=== PATIENT | male | born 1980 | race Caucasian/White ===

== ENCOUNTER 2023-04-13 08:58 | Outpatient (AMB) | payer OTHER, SELFPAY ==
--- NOTE | 2023-04-13 09:02 | A.OFFPC_ITS ---
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 Nurse Required: No Accompanied by: Self / Same As Patient Allergies penicillin G Allergy (Mild, Verified 04/13/23 09:15) Rash Medication List - Last Reconciled 04/13/23 by BALDEMAR Cho omeprazole 80 mg PO DAILY Tobacco use date assessed: 04/13/23 Dental Screening Dental Screen Date: 04/13/23 Did you have a dental visit in the last 12 months?: Yes Did you have a dental problem in the last 6 months where you did not have access to dental care?: No Was dental information given to patient?: Patient has dentist HPI HPI Comments History of Present Illness Details 42-year-old male new patient presents today for physical exam. Past medical history significant for eosinophilic esophagitis and hypercholesteremia. Patient states previously followed by gastroenterology recommended that he get EGDs every year, however patient reports has not had a upper endoscopy since 2019 and that he is overdue. Patient also reports he ran out of his 80 mg omeprazole over a month ago. Refill sent on 80 mg omeprazole daily an urgent referral placed to GI. Patient also reports family history of heart problems suggestive status or heart attack and mom had triple bypass. Patient reports has had a stress test completed in 2019 and reported it was normal. Patient denies any acute concerns. Eye exam: Patient recommended to get every couple years. Previous PCP: [facility] Medical History (Updated 04/13/23 @ 09:19 by BALDEMAR Cho) Malaria Surgical History (Updated 04/13/23 @ 09:19 by BALDEMAR Cho) H/O colonoscopy H/O endoscopy Hx of tonsillectomy No pertinent past surgical history Family History (Updated 04/13/23 @ 09:20 by BALDEMAR Cho) Father Heart attack High blood pressure Mother S/P triple vessel bypass Diabetes Brother Eosinophilic esophagitis Social History (Updated 04/13/23 @ 09:09 by Samuel Chavez CMA) Housing: House Alcohol intake: current Alcohol intake frequency: a few times a week Alcohol type: beer Patient Tobacco Use Status: Never used Tobacco e-Cigarette/Vaping Use: Never Used service: Yes Current occupational status: employed Current occupation: [employer] Current occupational exposures/hazards: No Cognitive needs: No Hearing needs: No Vision needs: No Questionnaire PHQ-9 Over the last 2 weeks, how often have you been bothered by any of the following problems? 1. Little interest or pleasure in doing things: not at all 2. Feeling down, depressed, or hopeless: not at all 3. Trouble falling or staying asleep, or sleeping too much: not at all 4. Feeling tired or having little energy: not at all 5. Poor appetite or overeating: not at all 6. Feeling bad about yourself - or that you are a failure or have let yourself or your family down: not at all 7. Trouble concentrating on things, such as reading the newspaper or watching television: not at all 8. Moving or speaking so slowly that other people could have noticed. Or the opposite - being so fidgety or restless that you have been moving around a lot more than usual: not at all 9. Thoughts that you would be better off or of hurting yourself in some way: not at all Total score: 0 Depression Screening Interpretation: Negative 68919 - PHQ-9 Billing: Yes Source: Developed by Drs. Yair Joshi, Ada Bartlett, Fernie Arroyo and colleagues, with an educational khadar from [employer]. Thrive Questionnaire Date Thrive assessed: 04/13/23 I am a: Patient What is your living situation today?: I have a steady place to live Within the past 12 months, did the food you bought not last and you didn't have the money to get more?: Never true Within the past 12 months, did you worry whether your food would run out before you got money to buy more?: Never true Do you have trouble paying for medicines?: No Do you have trouble getting transportation to medical appointments?: No Do you have trouble paying your heating and electricity bill?: No Do you have trouble taking care of your child, family member or friend?: No Do you have trouble with day-to-day activities such as bathing, preparing meals, shopping, managing finances, etc.?: No Are you currently unemployed and looking for a job?: No Please select the resources that you would like help with: None Currently or been in a relationship where the following occur: no concerns reported NATY-7 AMB Questionnaire NATY-7 Date NATY - 7 assessed: 04/13/23 Feeling nervous, anxious, or on edge: 0 = Not at all Not being able to stop or control worryin = Not at all Worrying too much about different things: 0 = Not at all Trouble relaxin = Not at all Being so restless that it is hard to sit still: 0 = Not at all Becoming easily annoyed or irritable: 0 = Not at all Feeling afraid as if something awful might happen: 0 = Not at all Total NATY-7 score (0-4 normal; 5-9 mild; 10-14 moderate; 15-21 severe): 0 Source: Developed by Drs. Yair Joshi, Ada Bartlett, Fernie Arroyo and colleagues, with an educational khadar from [employer]. NATY-7 Assessment Billing NATY-7 Assessment Tool: NAYT-7 Assessment 22081 Review of Systems Const Denies chills, Denies fatigue, Denies fever(s) and Denies poor appetite Eyes Denies no additional complaints ENT Reports Normal hearing present Card Denies chest pain, Denies syncope, Denies rapid heart rate and Denies dyspnea Resp Denies cough and Denies dyspnea GI Denies change in stool character, Denies constipation, Denies diarrhea, Denies nausea and Denies vomiting Denies dysuria, Denies urinary frequency and Denies urinary urgency Neuro Reports Normal hearing present, Denies confusion and Denies syncope Psych Denies confusion Endo Denies fatigue Physical exam (Primary Care) Vital Signs: Last Vital Signs Pulse 64 04/13/23 09:03 BP 122/72 04/13/23 09:03 Pulse Ox 98 04/13/23 09:03 BMI result Body Mass Index 34.2 Tobacco/Smoking Status: Tobacco use Status Tobacco use date assessed 04/13/23 04/13/23 09:11 Patient Tobacco Use Status Never used Tobacco 04/13/23 09:11 e-Cigarette/Vaping Use Never Used 04/13/23 09:11 PHQ-9: PHQ-9 Score PHQ-9: Total score 0 04/13/23 09:16 Depression Screening Interpretation: Negative Thrive Assessment: Date of Thrive Assessment Date Thrive assessed 04/13/23 04/13/23 09:11 Currently or been in a relationship where the following occur: no concerns reported Const General: No confusion Orientation/consciousness: No confusion HENMT Head: Yes normocephalic and Yes atraumatic Ears: external ears normal and TM's normal bilaterally General nose exam: Normal external nose present and Normal nasal mucous membranes and turbinates present Face and sinus: Yes normal facial exam and Yes sinuses nontender Mouth: moist mucous membranes Throat: Yes tonsils normal Eyes Conjunctivae: conjunctivae normal Sclerae: sclerae normal Pupils: Equal, round and reactive pupils present and Pupils normal by confrontation EOM: EOMs intact bilaterally Direct Ophthalmoscopy: normal light reflex Neck Neck: Yes no lymphadenopathy and Yes supple Thyroid: Thyroid normal Chest Chest palpation & inspection: normal inspection of the chest Resp Effort & Inspection: normal respiratory effort Auscultation: clear to auscultation bilaterally, no crackles, no rhonchi and no wheezes Cardio Rate: regular rate Rhythm: regular rhythm Peripheral pulses: radial pulses present and dorsalis pedis present GI Inspection: Yes normal to inspection Palpation (GI): Soft to palpation, nontender and No hepatosplenomegaly present Auscultation: normoactive bowel sounds Skin General skin exam: no rashes or lesions noted Neuro General: No confusion Cranial nerves: Yes Equal, round and reactive pupils present and Yes Normal hearing present Cognition (Neuro): normal cognition Gait exam (Neuro): Normal gait present Motor exam (neuro): 5/5 motor strength present throughout Deep tendon reflexes (DTR's): Right brachioradialis reflex intensity grade: 2+, Left brachioradialis reflex intensity grade: 2+, Right patellar reflex intensity grade: 2+ and Left patellar reflex intensity grade: 2+ Extrem General: No edema Assessment and Plan Assessment & Plan (1) Eosinophilic esophagitis: Code(s): K20.0 - Eosinophilic esophagitis Plan: Urgent referral placed to gastroenterology. Omeprazole 80 mg daily sent to patient's pharmacy. (2) Hypercholesteremia: Code(s): E78.00 - Pure hypercholesterolemia, unspecified Plan: Fasting lipid panel ordered. Patient reports previously on cholesterol med however has not been on an years and cannot remember what he was taking. (3) Physical exam, annual: Code(s): Z00.00 - Encounter for general adult medical examination without abnormal findings Plan Follow up in 6 monhts. Orders: Orders Comprehensive [place]. Panel Fast Today K20.0 - Eosinophilic esophagitis Lipid Panel Today E78.00 - Pure hypercholesterolemia, unspecified TSH reflex Free T4 Today Z13.29 - Encounter for screening for other suspected endocrine disorder Complete Blood Count Auto Diff Today Z13.0 - Encounter for screening for diseases of the blood and blood-forming organs and certain disorders involving the immune mechanism HIV Ab/Ag Today Z11.4 - Encounter for screening for human immunodeficiency virus [HIV] Referrals Dermatology Referral Z12.83 - Encounter for screening for malignant neoplasm of skin Gastroenterology Referral K20.0 - Eosinophilic esophagitis Medications: New omeprazole 80 mg (2 x 40 mg) PO DAILY 60 caps 2RF K20.0 - Eosinophilic esophagitis Coding Level of Care Code New Pt Prev Care 40-64y(20248) Diagnoses Eosinophilic esophagitis K20.0 Hypercholesteremia E78.00 Physical exam, annual Z00.00 Additional Codes NATY-7 Assessment Billing - NATY-7 Assessment Tool: NATY-7 Assessment [id number] ([id number])
[2023-04-13 09:03] VITALS: BP 122/72; PULSE 64; O2SAT 98; BMI 34.2
== END 2023-04-13 09:32 | disposition home or self-care (01) ==
PROVIDERS: Visit Provider Nurse Practitioner Family
DX: K20.0 Eosinophilic esophagitis (principal); E78.00 Pure hypercholesterolemia, unspecified; Z00.00 Encounter for general adult medical examination without abnormal findings
CPT/HCPCS: 99386

== ENCOUNTER 2023-04-13 09:34 | Outpatient (REF) | payer OTHER, SELFPAY ==
[2023-04-13 09:52] LABS: MANUAL DIFF FLAG NO
[2023-04-13 10:07] LABS: Basophils Absolute Auto 0.1 X10*3/uL (0.0-0.2); Basophils Percent Auto 1.1 % (0-2); Eosinophils Absolute Auto 0.5 X10*3/uL (0.0-0.4); Eosinophils Percent Auto 7.7 % (0-4); Hemoglobin 15.2 g/dl (14.0-18.0); Imm Gran Abs Auto 0.01 X10*3/uL (0.00-0.03); Imm Gran Pct Auto 0.2 % (0.0-0.4); Lymphocytes Absolute Auto 2.4 X10*3/uL (1.2-4.9); Lymphocytes Percent Auto 39.8 % (20-40); Mean Corpuscular HGB Conc 33.8 g/dl (31.0-36.0); Mean Corpuscular Hemoglobin 29.3 pg (27.0-33.0); Mean Corpuscular Volume 86.9 fL (80.0-98.0); Mean Platelet Volume 11.1 fL (9.4-12.4); Monocytes Absolute Auto 0.4 X10*3/uL (0.1-1.2); Monocytes Percent Auto 6.5 % (2-11); Neutrophils Absolute Auto 2.7 x10*3/uL (2.0-8.3); Neutrophils Percent Auto 44.7 % (45-73); Platelet Count 156 X10*3/uL (160-400); Red Blood Count 5.18 X10*6/uL (4.60-5.80); Red Cell Distribution Width 12.4 % (11.0-16.0); White Blood Count 6.1 X10*3/uL (4.8-10.8)
[2023-04-13 11:26] LABS: Alanine Aminotransferase 48 U/L (0-40); Albumin Level 4.5 g/dL (3.5-5.0); Alkaline Phosphatase 49 U/L (39-117); Anion Gap 10 (12-20); Aspartate Amino Transferase 27 U/L (5-37); Blood Urea Nitrogen 14 mg/dL (9-16); Calcium 9.7 mg/dL (8.4-10.2); Carbon Dioxide 27 mmol/L (22-29); Chloride 106 mmol/L (96-108); Cholesterol 236 mg/dL; Estimated Glomerular Filt Rate > 60; Glucose Fasting 93 mg/dL (60-99); HDL Cholesterol 46 mg/dL; LDL Cholesterol Calculated 161 mg/dl; Potassium 4.2 mmol/L (3.3-5.1); Sodium 139 mmol/L (135-145); Total Protein 7.5 g/dL (6.5-8.0); Triglycerides 148 mg/dL
[2023-04-13 11:36] LABS: HIV AB/AG Nonreactive (Nonreactive); HIV Num 1 0.05 S/CO (0.00-0.99)
[2023-04-13 11:47] LABS: Bilirubin Total 0.7 mg/dL (0.0-1.0)
== END 2023-04-13 09:35 | disposition home or self-care (01) ==
LOC: HO.LAB 09:34
PROVIDERS: PCP Nurse Practitioner Family; Visit Provider Nurse Practitioner Family
DX: Z13.29 Encounter for screening for other suspected endocrine disorder (principal); Z11.4 Encounter for screening for human immunodeficiency virus [HIV]; Z13.0 Encounter for screening for diseases of the blood and blood-forming organs and certain disorders involving the immune mechanism; K20.0 Eosinophilic esophagitis; E78.00 Pure hypercholesterolemia, unspecified
CPT/HCPCS: 36415; 80053; 80061; 84443; 85025; 87389

== ENCOUNTER 2023-04-27 09:13 | Outpatient (AMB) | payer OTHER, SELFPAY ==
--- NOTE | 2023-04-27 09:18 | MHC.OFFVIS ---
Intake Vital Signs 04/27/23 09:19 Height 6 ft Weight 253 lb 8.505 oz BMI 34.4 BP 137/94 H Blood Pressure Location Lt brachial Position Sitting Pulse 75 Intake Visit Reasons: Eosinophilic esophagitis Intake Note: Chacorta presents in the office as a new patient for eosinophilic esophigitis CC: He states that he is supposed to be scoped every 6 months to a year. He has scarring and he still has times when he has bits of choking. He states it gets so severe he has to go to the hospital to have it removed. He can tell when it is that severe. Once in a while he will have acid pains. 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 Works for the [employer] so relocates frequently. Was initially diagnosed in 2007 in [place] however has had symptoms most of his life. Brother also has EoE. Most recent care was in [place] where he had last EGD in 2020. Has needed dilation x3. Has had at least 4-5 visits to the ER for food obstruction most recently in 2021 in [facility]. Currently on omeprazole 40 BID. At one point was taking fluticasone inh for topical treatment but was stopped. Has also tried elimination diet based on skin allergy testing however does not think it helps. Does not think was ever on dedicated 6FED. Current symptoms are difficulty swallowing 1-2 times a week aby with meat or pasta. Cuts it up into very small and chews thoroughly. Last colo 2016 - hemorrhoids. PFSH Medical History Malaria Surgical History H/O colonoscopy H/O endoscopy Hx of tonsillectomy No pertinent past surgical history Family History Father Heart attack High blood pressure Mother S/P triple vessel bypass Diabetes Brother Eosinophilic esophagitis Social History Housing: House Alcohol intake: current Alcohol intake frequency: a few times a week Alcohol type: beer Patient Tobacco Use Status: Never used Tobacco e-Cigarette/Vaping Use: Never Used service: Yes Current occupational status: employed Current occupation: [employer] Current occupational exposures/hazards: No Cognitive needs: No Hearing needs: No Vision needs: No Review of Systems Const All systems reviewed & are unremarkable except as noted in HPI and below Physical Exam Vital Signs: Last Vital Signs Pulse 75 04/27/23 09:19 BP 137/94 H 04/27/23 09:19 BMI result Body Mass Index 34.4 Gen appear: NAD HEENT: nonicteric, no cervical lymphadenopathy Chest: CTA CVS: Regular S1/S2 Abd: soft, nontender, nondistended, bowel sounds + Ext: no peripheral edema Neuro: A/Ox3, noted to move all extremities spontaneously Psych: interacting appropriately Assessment & Plan Assessment & Plan (1) Eosinophilic esophagitis: Code(s): K20.0 - Eosinophilic esophagitis Plan: Reviewed natural evolution and progression of EoE and 3 pronged management with diet, meds and endoscopic dilation. Plan: - Start budesonide 1mg BID to be made into viscous slurry and swallowed - Barium swallow to assess for stricture to inform decision for EGD - Handouts provided for elimination diet - EGD +/- dil to be booked after barium swallow Follow up in 8 weeks. Orders: Orders FL barium swallow Today K20.0 - Eosinophilic esophagitis Medications: New budesonide 1 mg (2 mL) inhalation BID 90 days 360 mL 0RF budesonide 1 mg to be mixed in splenda or honey and swallowed 2 times a day; 90 days 360 mL 0RF Coding Level of Care Code New Pt Level 4 (93670) Diagnoses Eosinophilic esophagitis K20.0
[2023-04-27 09:19] VITALS: BP 137/94; PULSE 75; BMI 34.4
== END 2023-04-27 10:44 | disposition home or self-care (01) ==
PROVIDERS: PCP Nurse Practitioner Family; Visit Provider Internal Medicine
DX: K20.0 Eosinophilic esophagitis (principal)
CPT/HCPCS: 99204

== ENCOUNTER → 2023-04-27 09:13 | Outpatient (BNVA) | payer OTHER, SELFPAY | PROVIDERS: PCP Nurse Practitioner Family; Visit Provider Internal Medicine | DX: K20.0 Eosinophilic esophagitis (principal) | CPT/HCPCS: 99202 ==

== ENCOUNTER 2023-07-08 10:46 | Day surgery (SDC) | payer OTHER, SELFPAY ==
[2023-07-06 09:28] VITALS: BMI 34.4
--- NOTE | 2023-07-07 10:57 | P.CONAN_ITS ---
Documented by User: Shandra Flynn NP 07/07/23 10:58 HPI - Anesthesia Eval Consult details Narrative: 42yo M for Upper Endoscopy with Balloon Dilitation PMFSH Active Problems Active Problems: All Active Problems (Updated 07/06/23 @ 09:21 by Dior Ingram RN) Hypercholesteremia (Acute) Eosinophilic esophagitis (Acute) Past Medical History Medical History (Updated 07/06/23 @ 09:21 by Dior Ingram RN) Eosinophilic esophagitis Elevated cholesterol Malaria Family History Family History Father Heart attack High blood pressure Mother S/P triple vessel bypass Diabetes Brother Eosinophilic esophagitis Surgical History Surgical History (Updated 07/06/23 @ 09:27 by Dior Ingram RN) H/O colonoscopy Hx of tonsillectomy H/O endoscopy Social History Social History Housing: House Alcohol intake: current Alcohol intake frequency: a few times a week Alcohol type: beer Patient Tobacco Use Status: Never used Tobacco e-Cigarette/Vaping Use: Never Used Advance Directives: No Advance Directives Information Provided: Yes service: Yes Current occupational status: employed 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) Current occupational exposures/hazards: No Cognitive needs: No Hearing needs: No Vision needs: No Meds Allergies Allergy/AdvReac Type Severity Reaction Status Date / Time penicillin G Allergy Mild Rash Verified 04/27/23 09:20 Exam Exam Date and Time: July 07, 2023 1057 Height,Weight and Vital Signs: Height 6 ft Weight 115.212 kg Pertinent Lab Results Pertinent Lab Results: Laboratory Tests 04/13/23 09:50 WBC 6.1 Hgb 15.2 Hct 45.0 Plt Count 156 L Sodium 139 Potassium 4.2 Chloride 106 Carbon Dioxide 27 BUN 14 Creatinine 0.88 Assessment and Plan Assessment Anesthesia Assessment: Chart Reviewed Documented by User: Misael Beavers MD 07/08/23 12:25 PMFSH Past Medical History Medical History (Updated 07/06/23 @ 09:21 by Dior Ingram RN) Eosinophilic esophagitis Elevated cholesterol Malaria Family History Family History Father Heart attack High blood pressure Mother S/P triple vessel bypass Diabetes Brother Eosinophilic esophagitis Family history of problems with anesthesia: No Surgical History Surgical History (Updated 07/06/23 @ 09:27 by Dior Ingram RN) H/O colonoscopy Hx of tonsillectomy H/O endoscopy History of Problems with Anesthesia: No Social History Social History Housing: House Alcohol intake: current Alcohol intake frequency: a few times a week Alcohol type: beer Patient Tobacco Use Status: Never used Tobacco e-Cigarette/Vaping Use: Never Used Advance Directives: No Advance Directives Information Provided: Yes service: Yes Current occupational status: employed 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) Current occupational exposures/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: No Cognitive needs: No Hearing needs: No Vision needs: No Meds Allergies Allergy/AdvReac Type Severity Reaction Status Date / Time penicillin G Allergy Mild Rash Verified 04/27/23 09:20 Exam Airway Mallampati Class: II TM Dist: >3cm Neck ROM: Full Loose/Missing/Broken Teeth: No Heart: ok Lungs: ok Assessment and Plan Assessment Anesthesia Assessment: Anesthesia Plan Discussed Final Anesthetic Review Family History of Problems with Anesthesia: No History of Problems with Anesthesia: No NPO: Yes ASA Class: II Final Preanesthetic Review: No Changes in Pt Med Stat, Meds/Allgs Chart Reviewed, Consent Obtained/Reviewed and Anes Risks/Benef Reviewed Patient Risk: Intermediate Procedure Risk: Intermediate Anesthetic Plan Anesthetic Plan: MAC: and Agree w/ Assess. and Plan Disposition: Standard PACU
[2023-07-08 11:07] VITALS: BP 124/91; PULSE 63; RESP 16; TEMP 36.5; O2SAT 96
--- NOTE | 2023-07-08 12:10 | MHC.SHP ---
Pre-Procedural Eval Section A Date of Service: 07/08/23 Section B Chief Complaint: Eosinophilic esophagitis Details of Present Illness: PMH: Malaria Surgical History H/O colonoscopy H/O endoscopy Hx of tonsillectomy No pertinent past surgical history Present Medications: see Short Stay Collaborative assessment Allergies: Allergies Allergy/AdvReac Type Severity Reaction Status Date / Time penicillin G Allergy Mild Rash Verified 04/27/23 09:20 Review of Systems Review of Systems Comment: Ten point ROS negative Exam Exam Comment: Gen appear: No acute distress HEENT: no icterus Chest: No overt resp distress Abd: soft, nontender, nondistended Psych: Stable affect, answering questions appropriately Neuro: A/Ox3 noted to move all extremities spontaneously Ext: no peripheral edema Plan Diagnosis/Plan: Unchanged I have reviewed the history and physical and performed a pertinent physical examination on my patient. No changes have occurred unless specified. Time Spent With Patient Time: Total time managing care of this patient today ____ minutes.
[2023-07-08] MEDS: Lactated Ringers 1,000 ML 100 ML IVCONT (12:14)
--- NOTE | 2023-07-08 12:53 | P.OP_ITS ---
Operative Note Operative Note Date of Service: 07/08/23 Narrative: Procedure: Esophagogastroduodenoscopy Endoscopist: Lorraine Alamo MD Indication: EoE Anesthesia Provider: Dr Misael Beavers Anesthesia Type: MAC Instrument: Olympus [id number] ?? EGD Procedure:?? The procedure, indications, preparation and potential complications were reviewed with the patient, who indicated understanding and gave written informed consent to proceed. A physical exam was performed. The endoscope was introduced through the mouth, and advanced to the second part of duodenum. The mucosa was carefully examined on slow withdrawal of the endoscope. The patient tolerated the procedure well. There were no immediate complications.? ? EGD Findings:? * Esophagus:? Linear furrowing and trachealization of mid to lower esophagus noted. The Z line was at 37 cm. There was a small hiatal hernia with diaphragmatic pinch at 40 cm. Middle and lower esophagus forceps biopsies were obtained to monitor eosinophil count/response to current therapy. * Stomach:? Normal mucosa was noted in the stomach. Retroflexion was performed in the cardia. * Duodenum:? Normal mucosa was noted in the whole of the examined duodenum. Additional intervention: A wire guided [id number] balloon dilator was advanced to the lower esophagus and then incrementally insufflated from 15 to 18 mm. A superficial longitudinal tear was noted from 30-35 cm on relook confirming successful dilation. ? EGD Impressions:? * Abnormal esophageal mucosa compatible with known EoE (biopsy) * Lower esophageal stricture (dilation) * Normal stomach * Normal duodenum ?? Recommendations:?? * Follow biopsy results. Our office will call or send a letter with results within 7-10 days. * If has active histological disease i.e >15-20 eos/HPF, will need to increase the dose of budesonide to 1mg BID from current dose of 0.5 mg BID * Repeat EGD in 8 weeks for updilation of stricture +/- repeat biopsies Above has been reviewed with the patient.
[2023-07-08 13:03] VITALS: BP 108/58; PULSE 65; RESP 18; TEMP 36.4; O2SAT 93
[2023-07-08 13:18] VITALS: BP 105/70; PULSE 60; RESP 16; TEMP 36.5; O2SAT 95
[2023-07-08 13:32] VITALS: BP 108/68; PULSE 56; RESP 16; TEMP 36.5; O2SAT 95
== END 2023-07-08 13:55 | disposition home or self-care (01) ==
PROVIDERS: PCP Nurse Practitioner Family; Visit Provider Internal Medicine
PROC: (CPT 43239; principal; 2023-07-08 12:40)
DX: K20.0 Eosinophilic esophagitis (principal); K22.2 Esophageal obstruction; K44.9 Diaphragmatic hernia without obstruction or gangrene; K22.9 Disease of esophagus, unspecified; E78.00 Pure hypercholesterolemia, unspecified; Z79.899 Other long term (current) drug therapy
CPT/HCPCS: 43239; 43249; 88305; C1726

== ENCOUNTER → 2023-07-08 10:46 | Outpatient (BNV) | payer OTHER, SELFPAY | PROVIDERS: PCP Nurse Practitioner Family; Visit Provider Internal Medicine | DX: K20.0 Eosinophilic esophagitis (principal) | CPT/HCPCS: 43249 ==

== ENCOUNTER 2023-07-14 09:49 | Outpatient (REF) | payer OTHER, SELFPAY ==
--- NOTE | ~2023-07-14 | FL_ITS ---
EXAMINATION: FL BARIUM SWALLOW CLINICAL INFORMATION: Eosinophilic esophagitis COMPARISON: None TECHNIQUE: Fluoroscopic air contrast upper GI examination was performed utilizing standard techniques with thin and thick barium and effervescent granules. Numerous spot images were obtained. FINDINGS: Lateral cine images of the oropharynx and hypopharynx demonstrate normal swallow mechanism with normal epiglottic inversion and soft palate elevation. No tracheal penetration, glottic or subglottic aspiration identified. No nasopharyngeal reflux present. Hypopharyngeal structures appear normal without evidence of mass or diverticulum. There was no significant cricopharyngeal achalasia. Dual and single contrast images of the esophagus demonstrate a feline esophagus. No evidence of stricture, mass, or ulcerations identified. Primary esophageal peristalsis was normal. There are mild tertiary contractions following, which were nonpropulsive. A small type I hiatal hernia is present. Gastroesophageal reflux is seen up to level of the thoracic inlet. FLUOROSCOPY TIME: 2 minutes 41 seconds Number of Spot Images: 10 Number of Cine: 6 DOSE AREA PRODUCT: 1795 uGy-m2 (microgray-meter squared) FL/FL barium swallow IMPRESSION: 1. Feline esophagus, commonly associated with reflux. 2. Small type I hiatal hernia. 3. Significant gastroesophageal reflux. 4. Mild esophageal dysmotility. This procedure was performed by Juan Miguel Fields PA-C, and supervised by Dr. Tafoya
== END 2023-07-14 09:50 | disposition home or self-care (01) ==
LOC: HO.XRAY 09:49
PROVIDERS: PCP Nurse Practitioner Family; Visit Provider Internal Medicine
DX: K20.0 Eosinophilic esophagitis (principal)
CPT/HCPCS: 74220

== ENCOUNTER → 2023-07-14 09:50 | Outpatient (BNV) | payer OTHER, SELFPAY | PROVIDERS: PCP Nurse Practitioner Family; Visit Provider Radiology Diagnostic Radiology | DX: K20.0 Eosinophilic esophagitis (principal) | CPT/HCPCS: 74221 ==

== ENCOUNTER 2023-07-23 11:15 | Outpatient (AMB) | payer OTHER, SELFPAY ==
--- NOTE | 2023-07-23 11:19 | A.OFFVIS_ITS ---
Intake Vital Signs 07/23/23 11:20 Height 6 ft Weight 248 lb 3.848 oz BMI 33.7 BP 138/81 Blood Pressure Location Rt brachial Position Sitting Pulse 59 Intake Visit Reasons: s/p egd dil Intake Note: Chacorta presents in the office today in follow up of EGD with dilation. CC: Patient reports doing well since after EGD. He underwent EGD on 07/08/23. Denies having any new GI concerns today. Quill Machine Tender Required: No Allergies penicillin G Allergy (Mild, Verified 07/23/23 11:22) Rash HPI s/p egd dil HPI Details LAST VISIT WITH DR. ZEPEDA Assessment & Plan (1) Eosinophilic esophagitis: Code(s): K20.0 - Eosinophilic esophagitis Plan: Reviewed natural evolution and progression of EoE and 3 pronged management with diet, meds and endoscopic dilation. Plan: - Start budesonide 1mg BID to be made in to viscous slurry and swallowed - Barium swallow to assess for stricture to inform decision for EGD - Handouts provided for elimination diet - EGD +/- dil to be booked after barium swallow UPPER ENDOSCOPY EGD Findings:? * Esophagus:? Linear furrowing and trachealization of mid to lower esophagus noted. The Z line was at 37 cm. There was a small hiatal hernia with diaphragmatic pinch at 40 cm. Middle and lower esophagus forceps biopsies were obtained to monitor eosinophil count/response to current therapy. * Stomach:? Normal mucosa was noted in the stomach. Retroflexion was performed in the cardia. * Duodenum:? Normal mucosa was noted in the whole of the examined duodenum. Additional intervention: A wire guided caormaf-zww-kcotd balloon dilator was advanced to the lower esophagus and then incrementally insufflated from 15 to 18 mm. A superficial longitudinal tear was noted from 30-35 cm on relook confirming successful dilation. ? EGD Impressions:? * Abnormal esophageal mucosa compatible with known EoE (biopsy) * Lower esophageal stricture (dilation) * Normal stomach * Normal duodenum ?? Recommendations:?? * Follow biopsy results. Our office will call or send a letter with results within 7-10 days. * If has active histological disease i.e >15-20 eos/HPF, will need to increase the dose of budesonide to 1mg BID from current dose of 0.5 mg BID * Repeat EGD in 8 weeks for updilation of stricture +/- repeat biopsies PATHOLOGY RESULTS Diagnosis A. Esophagus, lower, biopsy: Squamous mucosa with numerous intraepithelial eosinophils (focally greater than 75 per high-power field), consistent with eosinophilic esophagitis; no columnar mucosa present. B. Esophagus, middle, biopsy: Squamous mucosa with numerous intraepithelial eosinophils (focally greater than 60 per high-power field), consistent with eosinophilic esophagitis; no columnar mucosa present TODAY'S VISIT Patient is here today for follow-up and to discuss upper endoscopy results. Patient is on budesonide 1 mg twice a day. He is tolerating the treatment well, however he continues to feel occasional dysphagia. Patient has previously seen shrimp peeling machine tender but it has been over 2 years ago. Allergies to multiple different food. Has not followed up with shrimp peeling machine tender yet. Patient reports that he has deviated septum and has not seen ENT provider. Patient also reports snoring at night. Has not been evaluated for sleep apnea. Reports postprandial drip frequently almost on a daily basis [facility] Medical History Eosinophilic esophagitis Elevated cholesterol Malaria Surgical History H/O colonoscopy Hx of tonsillectomy H/O endoscopy Family History Father Heart attack High blood pressure Mother S/P triple vessel bypass Diabetes Brother Eosinophilic esophagitis Social History Housing: House Alcohol intake: current Alcohol intake frequency: a few times a week Alcohol type: beer Patient Tobacco Use Status: Never used Tobacco e-Cigarette/Vaping Use: Never Used service: Yes Current occupational status: employed Current occupation: [employer] Current occupational exposures/hazards: No Cognitive needs: No Hearing needs: No Vision needs: No Review of Systems Const Denies weight gain and Denies weight loss ENT Reports no additional complaints, Reports dysphagia and Denies odynophagia Card Reports no additional complaints Resp Reports no additional complaints GI Denies abdominal pain, Denies belching, Denies melena, Denies bloating, Denies change in bowel habits, Reports dysphagia, Denies excessive flatus, Denies dyspepsia, Denies heartburn, Denies diarrhea, Denies loose stools, Denies nausea, Denies odynophagia and Denies vomiting Reports no additional complaints Musc Reports no additional complaints Neuro Reports no additional complaints Psych Reports no additional complaints Endo Reports no additional complaints Physical Exam Vital Signs: Last Vital Signs Pulse 59 07/23/23 11:20 BP 138/81 07/23/23 11:20 BMI result Body Mass Index 33.7 Const General: healthy appearing, no acute distress and well developed Nutritional Appearance: obese Orientation/consciousness: patient oriented x3 HEENT Head: Yes normal to inspection, Yes normocephalic and Yes atraumatic Face and sinus: Yes normal facial exam Mouth: Normal oral and palatal mucosa present Throat: Yes posterior oropharynx normal, Yes tonsils normal and Yes uvula midline Eyes General: appearance normal, both eyes and all related structures Neck Neck: Yes normal visual inspection, Yes full ROM and Yes trachea midline Thyroid: Thyroid normal Resp Effort & Inspection: normal respiratory effort, able to speak in complete sentences, no tracheal deviation and symmetric chest movement Auscultation: clear to auscultation bilaterally Cardio Rate: regular rate Heart sounds: S1 normal heart sound present and S2 normal heart sound present GI Inspection: Yes normal to inspection, No distended and Yes obesity Palpation (GI): Soft to palpation, not firm, nontender and No hepatosplenomegaly present Auscultation: normal bowel sounds General: Yes no CVA tenderness Back/Spine/Pelvis Back: no CVA tenderness Skin General skin exam: elasticity normal, turgor normal and dry skin Neuro General: patient oriented x3 Psych Appearance: grossly normal Mental Status: mental status grossly normal Assessment & Plan Assessment & Plan (1) Snoring: Code(s): R06.83 - Snoring (2) Dysphagia: Code(s): R13.10 - Dysphagia, unspecified Qualifiers: Dysphagia type: pharyngoesophageal phase Qualified Code(s): R13.14 - Dysphagia, pharyngoesophageal phase (3) Eosinophilic esophagitis: Code(s): K20.0 - Eosinophilic esophagitis Plan Referral to Sleep Medicine, allergy and immunology Center, ENT send for patient. Patient will return to this office in 2 months before going for upper endoscopy again. Patient can take Zyrtec for his allergies and he can take Flonase. He was encouraged to avoid dietary triggers. Patient has been on omeprazole for very long time will switch it to pantoprazole. Feels that omeprazole has not been working. He is agreeable to this plan and verbalizes understanding of instructions. He was given the opportunity to ask questions and all questions answered. Thank you for allowing me to participate in his care Orders: Referrals Sleep Medicine Referral R06.83 - Snoring, Z01.89 - Encounter for other specified special examinations Allergy & Immunology Referral K20.0 - Eosinophilic esophagitis Ear/Nose/Throat Referral J34.2 - Deviated nasal septum, R13.10 - Dysphagia, unspecified Medications: New fluticasone propionate 50 mcg/actuation (Flonase Allergy Relief) administer into each nostril twice a day for 2 weeks and daily 1 spray intranasal BID 90 days 16 grams 0RF R05.9 - Cough, unspecified pantoprazole 40 mg PO BID 60 tabs 4RF K21.9 - Gastro-esophageal reflux disease without esophagitis cetirizine (Zyrtec) 10 mg PO DAILY PRN 30 tabs 3RF allergy symptoms J31.0 - Chronic rhinitis fluticasone propionate 50 mcg/actuation (Flonase Allergy Relief) administer into each nostril twice a day for 2 weeks and daily 1 spray intranasal BID 16 grams 0RF R05.9 - Cough, unspecified Discontinued omeprazole Discontinued Reason: Doctor's Order 40 mg PO BID 60 caps 3RF K20.0 - Eosinophilic esophagitis Coding Level of Care Code Est Pt Level 4 (66624) Diagnoses Snoring R06.83 Pharyngoesophageal dysphagia R13.14 Dysphagia type: pharyngoesophageal phase Eosinophilic esophagitis K20.0 Time Spent (min) 40 Comment 25 minutes spent with patient and additional 15 minutes spent reviewing his records
[2023-07-23 11:20] VITALS: BP 138/81; PULSE 59; BMI 33.7
== END 2023-07-23 11:56 | disposition home or self-care (01) ==
PROVIDERS: PCP Nurse Practitioner Family; Visit Provider Nurse Practitioner Family
DX: R06.83 Snoring (principal); R13.14 Dysphagia, pharyngoesophageal phase; K20.0 Eosinophilic esophagitis
CPT/HCPCS: 99214

== ENCOUNTER → 2023-07-23 11:15 | Outpatient (BNVA) | payer OTHER, SELFPAY | PROVIDERS: PCP Nurse Practitioner Family; Visit Provider Nurse Practitioner Family | DX: K20.0 Eosinophilic esophagitis (principal); R06.83 Snoring; R13.14 Dysphagia, pharyngoesophageal phase | CPT/HCPCS: 99212 ==

== ENCOUNTER 2023-10-01 07:47 | Outpatient (AMB) | payer OTHER, SELFPAY ==
--- NOTE | 2023-10-01 07:55 | MHC.OFFVIS ---
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 Patient Biller Required: No Allergies penicillin G Allergy (Mild, Verified 10/01/23 07:56) Rash HPI HPI Comments History of Present Illness Details 43 y/o male patient presents for new in-person visit for sleep consultation. Pt reports loud snoring, he snores all night. He denies difficulty falling asleep but wakes up 1-2 times at night. Pt reports non refreshing sleep with daytime tiredness. He gained about 40 lb over the last couple of years. Sleep questionnaire: Have you ever been diagnosed with a sleep disorder? No. Have you ever had a sleep study in the past? No. Have you ever been treated for a sleep disorder? No. Do you take medications for a sleep disorder? No. Do you snore? Yes, loudly. Do you wake up gasping at night? No. Do you have episodes of apneas? No. If yes, are they witnessed? No. Do you have episodes of nocturnal chest pain or dyspnea? No. Do you have difficulty initiating sleep? No. Do you have difficulty maintaining sleep? 1-2 times at night. Do you wake up tired? Yes. Do you have headaches upon awakening? Yes, occasionally. Do you wake up with dry mouth or throat? No. Do you have GERD? Yes. Do you have nocturia? Once. Do you have nocturnal leg cramps? No. Do you have symptoms of restless legs? No. Do you act out your dreams? No. Sleep hygiene questionnaire: What is your usual sleep routine? Usual bedtime is at 10 :30 11:30 pm; Usual wake up time is at 6:30 am. Do you take naps? No. Is your sleep environment cool, dark, and quiet? Yes. Do you exercise? Once in a while. Do you take caffeine or other stimulants? One soda a day. Do you use electronics in bed? Yes. What is your work schedule? 7:30am to 5 pm. Hypersomnolence questionnaire: Do you have daytime tiredness or fatigue? Yes. Do you easily fall asleep when inactive? No. Have you ever had episodes of sudden weakness? No. Have you ever had episodes of sudden weakness associated with strong emotions? No. PFSH Medical History Eosinophilic esophagitis Elevated cholesterol Malaria Surgical History H/O colonoscopy Hx of tonsillectomy H/O endoscopy Family History Father Heart attack High blood pressure Mother S/P triple vessel bypass Diabetes Brother Eosinophilic esophagitis Social History Housing: House Alcohol intake: current Alcohol intake frequency: a few times a week Alcohol type: beer Patient Tobacco Use Status: Never used Tobacco e-Cigarette/Vaping Use: Never Used service: Yes Current occupational status: employed Current occupation: [employer] Current occupational exposures/hazards: No Cognitive needs: No Hearing needs: No Vision needs: No Review of Systems Const All systems reviewed & are unremarkable except as noted in HPI and below Physical Exam Vital Signs: Last Vital Signs Pulse 62 10/01/23 07:56 Resp 16 10/01/23 07:56 BP 118/82 10/01/23 07:56 Pulse Ox 95 10/01/23 07:56 Oxygen Delivery Method Room Air 10/01/23 07:56 BMI result Body Mass Index 34.7 Const General: cooperative Nutritional Appearance: obese Neck Neck: Yes full ROM and Yes supple Resp Effort & Inspection: normal respiratory effort and able to speak in complete sentences Neuro Cranial nerves: Yes CN's II-XII intact bilaterally Cognition (Neuro): normal cognition Gait exam (Neuro): Normal gait present Motor exam (neuro): 5/5 motor strength present throughout, Pronator motor function not present and no tremor noted Psych Appearance: grossly normal Mental Status: mental status grossly normal Speech and movement: Normal speech and movement present Affect: normal affect Attitude: cooperative Assessment & Plan Assessment & Plan (1) Loud snoring: Code(s): R06.83 - Snoring (2) Daytime sleepiness: Code(s): R40.0 - Somnolence Plan Pt is advised to undergo home sleep study to assess for sleep apnea. Will f/u with pt after study to discuss results and appropriate treatment options. Sleep hygiene education provided. Advised patient limit electronic use before bedtime. Wt reduction advised. Pt to call with any worsening concerns or questions. Orders: Orders RT home sleep study Today R06.83 - Snoring, R40.0 - Somnolence Coding Level of Care Code New Pt Level 3 (41592) Diagnoses Loud snoring R06.83 Daytime sleepiness R40.0
[2023-10-01 07:56] VITALS: BP 118/82; PULSE 62; RESP 16; O2SAT 95; BMI 34.7
== END 2023-10-01 08:30 | disposition home or self-care (01) ==
PROVIDERS: PCP Nurse Practitioner Family; Supervising Provider Nurse Practitioner Family; Visit Provider Nurse Practitioner Family
DX: R06.83 Snoring (principal); R40.0 Somnolence
CPT/HCPCS: 99203

== ENCOUNTER → 2023-10-01 07:47 | Outpatient (BNVA) | payer OTHER, SELFPAY | PROVIDERS: PCP Nurse Practitioner Family; Visit Provider Nurse Practitioner Family | DX: R06.83 Snoring (principal); R40.0 Somnolence | CPT/HCPCS: 99202 ==

== ENCOUNTER 2023-10-05 15:44 | Outpatient (AMB) | payer OTHER, SELFPAY ==
[2023-10-05 15:52] VITALS: BP 129/88; PULSE 60; BMI 35.0
--- NOTE | 2023-10-05 15:52 | MHC.OFFVIS ---
Intake Vital Signs 10/05/23 15:52 Height 6 ft Weight 257 lb 15.053 oz BMI 35.0 BP 129/88 Blood Pressure Location Lt brachial Position Sitting Pulse 60 Intake Visit Reasons: f/u Intake Note: Patient prsents to in office fvisit today in follow up of dysphagia. CC: Patient states he is scheduled for EGD with dilation on 10/28/23. Denies having any GI concerns or symptoms today. Paperhanger Supervisor Required: No Accompanied by: Self / Same As Patient Allergies penicillin G Allergy (Mild, Verified 10/05/23 15:54) Rash HPI f/u HPI Details LAST VISIT: Snoring Dysphagia Eosinophilic esophagitis Plan Referral to Sleep Medicine, allergy and immunology Center, ENT send for patient. Patient will return to this office in 2 months before going for upper endoscopy again. Patient can take Zyrtec for his allergies and he can take Flonase. He was encouraged to avoid dietary triggers. Patient has been on omeprazole for very long time will switch it to pantoprazole. Feels that omeprazole has not been working. He is agreeable to this plan and verbalizes understanding of instructions. He was given the opportunity to ask questions and all questions answered. ? Thank you for allowing me to participate in his care Orders Referrals Sleep Medicine Referral R06.83, Z01.89 Allergy & Immunology Referral K20.0 Ear/Nose/Throat Referral J34.2, R13.10 Medications New fluticasone propionate 50 mcg/actuation (Flonase Allergy Relief) administer into each nostril twice a day for 2 weeks and daily 1 spray intranasal BID 90 days 16 grams 0RF R05.9 pantoprazole 40 mg PO BID 60 tabs 4RF K21.9 cetirizine (Zyrtec) 10 mg PO DAILY PRN 30 tabs 3RF allergy symptoms J31.0 fluticasone propionate 50 mcg/actuation (Flonase Allergy Relief) administer into each nostril twice a day for 2 weeks and daily 1 spray intranasal BID 16 grams 0RF R05.9 Discontinued omeprazole Discontinued Reason: Doctor's Order 40 mg PO BID 60 caps 3RF K20.0 TODAY'S VISIT Patient is here today for follow-up. Patient reports that he has been feeling better started taking pantoprazole twice a day and his symptoms of acid reflux are suppressed. Patient is scheduled for October 28 for upper endoscopy with dilation. Patient would like to change the appointment to different time. Patient reports no dyspepsia, dysphagia or odynophagia. His symptoms are suppressed at this time. Patient will be going for sleep study, seen by provider and test ordered. Patient has an appointment with ENT in few weeks. Otherwise patient reports to be feeling well. Denies any other GI concerning symptoms. [facility] Medical History Eosinophilic esophagitis Elevated cholesterol Malaria Surgical History H/O colonoscopy Hx of tonsillectomy H/O endoscopy Family History Father Heart attack High blood pressure Mother S/P triple vessel bypass Diabetes Brother Eosinophilic esophagitis Social History Housing: House Alcohol intake: current Alcohol intake frequency: a few times a week Alcohol type: beer Patient Tobacco Use Status: Never used Tobacco e-Cigarette/Vaping Use: Never Used service: Yes Current occupational status: employed Current occupation: [employer] Current occupational exposures/hazards: No Cognitive needs: No Hearing needs: No Vision needs: No Review of Systems Const Denies weight gain and Denies weight loss ENT Reports no additional complaints, Denies dysphagia and Denies odynophagia Card Reports no additional complaints Resp Reports no additional complaints GI Denies abdominal pain, Denies belching, Denies melena, Denies bloating, Denies change in bowel habits, Denies dysphagia, Denies excessive flatus, Denies dyspepsia, Denies heartburn, Denies diarrhea, Denies loose stools, Denies nausea, Denies odynophagia and Denies vomiting Reports no additional complaints Musc Reports no additional complaints Neuro Reports no additional complaints Psych Reports no additional complaints Endo Reports no additional complaints Physical Exam Vital Signs: Last Vital Signs Pulse 60 10/05/23 15:52 BP 129/88 10/05/23 15:52 BMI result Body Mass Index 35.0 Const General: healthy appearing, no acute distress and well developed Nutritional Appearance: obese Orientation/consciousness: patient oriented x3 Resp Effort & Inspection: normal respiratory effort, able to speak in complete sentences, no tracheal deviation and symmetric chest movement Auscultation: clear to auscultation bilaterally Cardio Rate: regular rate GI Inspection: Yes normal to inspection, No distended and Yes obesity Palpation (GI): Soft to palpation, not firm, nontender and No hepatosplenomegaly present Auscultation: normal bowel sounds General: Yes no CVA tenderness Back/Spine/Pelvis Back: no CVA tenderness Skin General skin exam: elasticity normal, turgor normal and dry skin Neuro General: patient oriented x3 Psych Appearance: grossly normal Mental Status: mental status grossly normal Assessment & Plan Assessment & Plan (1) Eosinophilic esophagitis: Code(s): K20.0 - Eosinophilic esophagitis (2) Dysphagia: Code(s): R13.10 - Dysphagia, unspecified Qualifiers: Dysphagia type: esophageal phase Qualified Code(s): R13.19 - Other dysphagia (3) GERD (gastroesophageal reflux disease): Code(s): K21.9 - Gastro-esophageal reflux disease without esophagitis Qualifiers: Esophagitis presence: with esophagitis Esophagitis bleeding: without hemorrhage Qualified Code(s): K21.00 - Gastro-esophageal reflux disease with esophagitis, without bleeding Plan Patient will be scheduled for upper endoscopy. Continue new pantoprazole daily. Avoid dietary triggers in late night snacking. Patient so far has no dysphagia. However will need to go for upper endoscopy for possible esophageal dilation. History of eosinophilic esophagitis and treated with budesonide. Able to change his October 28 procedure to going for endoscopy this in early afternoon. Patient will follow-up in the office after the procedure, sooner on as needed basis. He is agreeable to this plan and verbalizes understanding of instructions. He was given the opportunity to ask questions and all questions answered. Thank you for allowing me to participate in his care Medications: Changed From pantoprazole 40 mg PO BID 60 tabs 4RF K21.9 - Gastro-esophageal reflux disease without esophagitis To pantoprazole 40 mg PO DAILY 30 tabs 4RF K21.9 - Gastro-esophageal reflux disease without esophagitis Coding Level of Care Code Est Pt Level 3 (85317) Diagnoses Eosinophilic esophagitis K20.0 Esophageal dysphagia R13.19 Dysphagia type: esophageal phase Gastroesophageal reflux disease with esophagitis without hemorrhage K21.00 Esophagitis presence: with esophagitis Esophagitis bleeding: without hemorrhage Time Spent (min) 30 Comment 20 minutes spent with patient and additional 10 minutes spent reviewing his records
== END 2023-10-05 16:22 | disposition home or self-care (01) ==
PROVIDERS: PCP Nurse Practitioner Family; Visit Provider Nurse Practitioner Family
DX: K21.00 Gastro-esophageal reflux disease with esophagitis, without bleeding (principal); R13.19 Other dysphagia
CPT/HCPCS: 99213

== ENCOUNTER → 2023-10-05 15:44 | Outpatient (BNVA) | payer OTHER, SELFPAY | PROVIDERS: PCP Nurse Practitioner Family; Visit Provider Nurse Practitioner Family | DX: R13.19 Other dysphagia (principal); K21.00 Gastro-esophageal reflux disease with esophagitis, without bleeding; Z79.899 Other long term (current) drug therapy | CPT/HCPCS: 99212 ==

== ENCOUNTER 2023-10-07 12:30 | Day surgery (SDC) | payer OTHER, SELFPAY ==
[2023-10-07 12:53] VITALS: BMI 34.7
[2023-10-07 13:11] VITALS: BP 130/95; PULSE 74; TEMP 35.8; O2SAT 96
--- NOTE | 2023-10-07 14:04 | MHC.SHP ---
Pre-Procedural Eval Section A - 24 Hr Update-Section A only Date of Service: 10/07/23 The patient is an INPATIENT: No Changes since office visit: Yes Patient answered all questions The patient has been examined within 24 hours of the surgical procedure. The History & Physical has been completed within 30 days and I have reviewed it.: Yes Section B - Complete if H&P > 30 days Chief Complaint: Eosinophilic esophagitis Allergies: Allergies Allergy/AdvReac Type Severity Reaction Status Date / Time penicillin G Allergy Mild Rash Verified 10/05/23 15:54 Plan Diagnosis/Plan: Unchanged I have reviewed the history and physical and performed a pertinent physical examination on my patient. No changes have occurred unless specified. Time Spent With Patient Time: Total time managing care of this patient today ____ minutes.
--- NOTE | 2023-10-07 14:46 | HO.ANESPROP2 ---
[facility] Active Problems Active Problems: All Active Problems (Updated 10/01/23 @ 08:50 by Valentina Skinner CNP) Daytime sleepiness (Acute) Loud snoring (Acute) Hypercholesteremia (Acute) Eosinophilic esophagitis (Acute) Past Medical History Medical History Eosinophilic esophagitis Elevated cholesterol Malaria Family History Family History Father Heart attack High blood pressure Mother S/P triple vessel bypass Diabetes Brother Eosinophilic esophagitis Family history of problems with anesthesia: No Surgical History Surgical History H/O colonoscopy Hx of tonsillectomy H/O endoscopy History of Problems with Anesthesia: No Social History Social History Housing: House Alcohol intake: current Alcohol intake frequency: holidays/special occasions only Alcohol type: beer Patient Tobacco Use Status: Never used Tobacco e-Cigarette/Vaping Use: Never Used Use of substances other than those prescribed or required for medical reasons: No Are you DNR?: No Advance Directives: No Advance Directives Information Provided: Yes service: Yes Current occupational status: employed Current occupation: [employer] Current occupational exposures/hazards: No Cognitive needs: No Hearing needs: No Vision needs: No Meds Allergies Allergy/AdvReac Type Severity Reaction Status Date / Time penicillin G Allergy Mild Rash Verified 10/05/23 15:54 Exam Height,Weight and Vital Signs: Height 6 ft Weight 116.12 kg Last Vital Signs Temp 96.5 F L 10/07/23 13:11 Pulse 74 10/07/23 13:11 BP 130/95 H 10/07/23 13:11 Pulse Ox 96 10/07/23 13:11 O2 Del Method Room Air 10/07/23 13:11 Airway Mallampati Class: II TM Dist: >3cm Neck ROM: Full Heart: rrr Lungs: cta Assessment and Plan Assessment Anesthesia Assessment: Anesthesia Plan Discussed and Chart Reviewed Final Anesthetic Review Family History of Problems with Anesthesia: No History of Problems with Anesthesia: No NPO: Yes ASA Class: II Final Preanesthetic Review: No Changes in Pt Med Stat, Meds/Allgs Chart Reviewed, Consent Obtained/Reviewed and Anes Risks/Benef Reviewed Patient Risk: Intermediate Procedure Risk: Low Anesthetic Plan Anesthetic Plan: MAC: Disposition: Standard PACU
[2023-10-07 15:45] VITALS: BP 126/84; PULSE 74; RESP 17; TEMP 36.6; O2SAT 98
--- NOTE | 2023-10-07 15:50 | P.OP_ITS ---
Operative Note Operative Note Date of Service: 10/07/23 Narrative: Procedure: Esophagogastroduodenoscopy with balloon dilation Endoscopist: Lorraine Alamo MD Indication: EoE with stricture Anesthesia Provider: Dr Kadie Bhatti Anesthesia Type: MAC Instrument: Olympus [id number]-[id number] ?? EGD Procedure:?? The procedure, indications, preparation and potential complications were reviewed with the patient, who indicated understanding and gave written informed consent to proceed. A physical exam was performed. The endoscope was introduced through the mouth, and advanced to the second part of duodenum. The mucosa was carefully examined on slow withdrawal of the endoscope. The patient tolerated the procedure well. There were no immediate complications.? ? EGD Findings:? * Esophagus:? Linear furrowing and trachealization of mid to lower esophagus noted. The Z line was at 37 cm. There was a small hiatal hernia with diaphragmatic pinch at 40 cm. Middle and lower esophagus forceps biopsies were obtained to monitor eosinophil count/response to current therapy. * Stomach:? Normal mucosa was noted in the stomach. Retroflexion was performed in the cardia. * Duodenum:? Normal mucosa was noted in the whole of the examined duodenum. Additional intervention: A wire guided [id number] balloon dilator was advanced to the lower esophagus and then incrementally insufflated from 15 to 18 mm. A superficial longitudinal tear was noted from 32-35 cm on relook confirming successful dilation. ? EGD Impressions:? * Abnormal esophageal mucosa compatible with known EoE (biopsy) * Lower esophageal stricture (dilation) * Normal stomach * Normal duodenum ?? Recommendations:?? * Follow biopsy results. Our office will call or send a letter with results within 7-10 days. * Patient reported being off budesonide for > 4 weeks as was not able to get further refills. Will recommend resuming this at 1 mg BID dosing. * Repeat EGD in 8 weeks for updilation of stricture +/- repeat biopsies Above has been reviewed with the patient.
[2023-10-07 16:00] VITALS: BP 124/80; PULSE 72; RESP 16; O2SAT 98
[2023-10-07 16:15] VITALS: BP 130/89; PULSE 79; RESP 14; TEMP 36.4; O2SAT 99
== END 2023-10-07 16:34 | disposition home or self-care (01) ==
PROVIDERS: PCP Nurse Practitioner Family; Visit Provider Internal Medicine
PROC: (CPT 43249; principal; 2023-10-07 14:40)
DX: K20.0 Eosinophilic esophagitis (principal); K22.2 Esophageal obstruction; K44.9 Diaphragmatic hernia without obstruction or gangrene; E78.00 Pure hypercholesterolemia, unspecified; Z79.899 Other long term (current) drug therapy
CPT/HCPCS: 43249; 43239; 88305; C1726; J2704

== ENCOUNTER → 2023-10-07 12:30 | Outpatient (BNV) | payer OTHER, SELFPAY | PROVIDERS: PCP Nurse Practitioner Family; Visit Provider Internal Medicine | DX: K20.0 Eosinophilic esophagitis (principal) | CPT/HCPCS: 43249 ==

== ENCOUNTER → 2023-11-24 14:53 | Outpatient (REF) | payer OTHER, SELFPAY | LOC: HO.SL 14:53 | PROVIDERS: Visit Provider Nurse Practitioner Family | DX: R06.83 Snoring (principal); R40.0 Somnolence | CPT/HCPCS: 95806 ==

== ENCOUNTER → 2023-11-24 15:02 | Outpatient (BNV) | payer OTHER, SELFPAY | PROVIDERS: Visit Provider Psychiatry & Neurology Neurology | DX: R06.83 Snoring (principal) | CPT/HCPCS: 95806 ==

== ENCOUNTER 2023-12-28 10:09 | Day surgery (SDC) | payer OTHER, SELFPAY ==
[2023-12-24 13:55] VITALS: BMI 35.0
--- NOTE | 2023-12-27 09:47 | P.CONAN_ITS ---
Documented by User: Shandra Flynn NP 12/27/23 09:47 HPI - Anesthesia Eval Consult details Narrative: 43yo M for Upper Endoscopy with dilation PMFSH Active Problems Active Problems: All Active Problems Daytime sleepiness (Acute) Loud snoring (Acute) Hypercholesteremia (Acute) Eosinophilic esophagitis (Acute) Past Medical History Medical History Eosinophilic esophagitis Elevated cholesterol Malaria Family History Family History Father Heart attack High blood pressure Mother S/P triple vessel bypass Diabetes Brother Eosinophilic esophagitis Family history of problems with anesthesia: No Surgical History Surgical History H/O colonoscopy Hx of tonsillectomy H/O endoscopy History of Problems with Anesthesia: No Social History Social History Housing: House Alcohol intake: current Alcohol intake frequency: holidays/special occasions only Alcohol type: beer Patient Tobacco Use Status: Never used Tobacco e-Cigarette/Vaping Use: Never Used Are you DNR?: No Advance Directives: No Advance Directives Information Provided: Yes Nutrition Risks: No Nutritional Risk service: Yes Current occupational status: employed Current occupation: [employer] Current occupational exposures/hazards: No Cognitive needs: No Hearing needs: No Vision needs: No Meds Allergies Allergy/AdvReac Type Severity Reaction Status Date / Time penicillin G Allergy Mild Rash Verified 12/28/23 10:19 Exam Height,Weight and Vital Signs: Height 6 ft Weight 117.027 kg Assessment and Plan Assessment Anesthesia Assessment: Chart Reviewed Final Anesthetic Review Family History of Problems with Anesthesia: No History of Problems with Anesthesia: No Documented by User: Aicha Brito MD 12/28/23 11:49 HPI - Anesthesia Eval Consult details Narrative: 43yo M for Upper Endoscopy with dilatation PMFSH Active Problems Active Problems: All Active Problems Daytime sleepiness (Acute) Loud snoring (Acute). Awaiting sleep study Hypercholesteremia (Acute) Eosinophilic esophagitis (Acute) Past Medical History Medical History Eosinophilic esophagitis Elevated cholesterol Malaria Family History Family History Father Heart attack High blood pressure Mother S/P triple vessel bypass Diabetes Brother Eosinophilic esophagitis Family history of problems with anesthesia: No Surgical History Surgical History H/O colonoscopy Hx of tonsillectomy H/O endoscopy History of Problems with Anesthesia: No Social History Social History Housing: House Alcohol intake: current Alcohol intake frequency: holidays/special occasions only Alcohol type: beer Patient Tobacco Use Status: Never used Tobacco e-Cigarette/Vaping Use: Never Used Are you DNR?: No Advance Directives: No Advance Directives Information Provided: Yes Nutrition Risks: No Nutritional Risk service: Yes Current occupational status: employed Current occupation: [employer] Current occupational exposures/hazards: No Cognitive needs: No Hearing needs: No Vision needs: No Meds Allergies Allergy/AdvReac Type Severity Reaction Status Date / Time penicillin G Allergy Mild Rash Verified 12/28/23 10:19 Exam Height,Weight and Vital Signs: Height 6 ft Weight 117.027 kg Vital Signs Temp Pulse Resp BP Pulse Ox O2 Del Method 12/28/23 10:38 97.9 F 61 18 131/87 96 Room Air Airway Mallampati Class: II TM Dist: >3cm Neck ROM: Full Loose/Missing/Broken Teeth: No (Denies broken, loose, missing teeth) Heart: RRR Lungs: CTAB Assessment and Plan Assessment Anesthesia Assessment: Anesthesia Plan Discussed and Chart Reviewed Final Anesthetic Review Family History of Problems with Anesthesia: No History of Problems with Anesthesia: No NPO: Yes ASA Class: II Final Preanesthetic Review: No Changes in Pt Med Stat, Meds/Allgs Chart Reviewed, Consent Obtained/Reviewed and Anes Risks/Benef Reviewed Patient Risk: Intermediate Procedure Risk: Low Assessment/Block/Sedation in SS: Assess/Block/Sedation-SS Anesthetic Plan Anesthetic Plan: MAC: and TIVA Disposition: Standard PACU
[2023-12-28 10:28] VITALS: BMI 34.6
[2023-12-28] MEDS: Lactated Ringers 1,000 ML 100 ML IVCONT (10:32)
[2023-12-28 10:38] VITALS: BP 131/87; PULSE 61; RESP 18; TEMP 36.6; O2SAT 96
--- NOTE | 2023-12-28 12:13 | MHC.SHP ---
Pre-Procedural Eval Section A - 24 Hr Update-Section A only Date of Service: 12/28/23 Section B - Complete if H&P > 30 days Chief Complaint: Eosinophilic esophagitis Relevant Family History (Specify if Yes): No Present Medications: see Short Stay Collaborative assessment Medical History: No relevant PMH History of Previous Operations: Relevant previous surgery/procedure and date(s) Allergies: Allergies Allergy/AdvReac Type Severity Reaction Status Date / Time penicillin G Allergy Mild Rash Verified 12/28/23 10:19 Review of Systems Review of Systems Comment: Ten point ROS negative Exam Exam Comment: Gen appear: No acute distress HEENT: no icterus Chest: No overt resp distress Abd: soft, nontender, nondistended Psych: Stable affect, answering questions appropriately Neuro: A/Ox3 noted to move all extremities spontaneously Ext: no peripheral edema Plan Diagnosis/Plan: Unchanged I have reviewed the history and physical and performed a pertinent physical examination on my patient. No changes have occurred unless specified. Time Spent With Patient Time: Total time managing care of this patient today ____ minutes.
--- NOTE | 2023-12-28 12:39 | P.OP_ITS ---
Operative Note Operative Note Date of Service: 12/28/23 Narrative: Procedure: Esophagogastroduodenoscopy with balloon dilation Endoscopist: Lorraine Alamo MD Indication: EoE with stricture Anesthesia Provider: Shayy Marshall CRNA Anesthesia Type: MAC Instrument: Olympus GIF-H190 ?? EGD Procedure:?? The procedure, indications, preparation and potential complications were reviewed with the patient, who indicated understanding and gave written informed consent to proceed. A physical exam was performed. The endoscope was introduced through the mouth, and advanced to the second part of duodenum. The mucosa was carefully examined on slow withdrawal of the endoscope. The patient tolerated the procedure well. There were no immediate complications.? ? EGD Findings:? * Esophagus:? Nomral mucosa was noted in proximal esophagus. Linear ulcerations were noted in the lower esophagus from 40 cm to 37 cm. The Z line was at 40 cm. There was a small hiatal hernia with diaphragmatic pinch at 42 cm. Middle and lower esophagus forceps biopsies were obtained to monitor eosinophil count/response to current therapy. * Stomach:? Normal mucosa was noted in the stomach. Retroflexion was performed in the cardia. * Duodenum:? Normal mucosa was noted in the whole of the examined duodenum. Additional intervention: A wire guided [id number]-[id number]-[id number] balloon dilator was advanced to the lower esophagus and then incrementally insufflated from 18 to 20 mm. A superficial longitudinal tear was noted from 30-34 cm on relook confirming successful dilation. ? EGD Impressions:? * Grade C esophagitis * Esophageal stricture (dilation) * Normal stomach * Normal duodenum ?? Recommendations:?? * Follow biopsy results. Our office will call or send a letter with results within 7-10 days. * Cont budesonide 1 mg BID and pantoprazole 40mg once daily * Repeat EGD in 3 months to document healing of esophagitis and dilation if needed Above has been reviewed with the patient.
[2023-12-28 12:47] VITALS: BP 117/86; PULSE 71; RESP 16; TEMP 36.4; O2SAT 97
[2023-12-28 13:02] VITALS: BP 114/81; PULSE 62; RESP 18; TEMP 36.2; O2SAT 97
== END 2023-12-28 13:39 | disposition home or self-care (01) ==
PROVIDERS: PCP Nurse Practitioner Family; Visit Provider Internal Medicine
PROC: 0DJ08ZZ Inspection of Upper Intestinal Tract, Via Natural or Artificial Opening Endoscopic (ICD-10-PCS; CPT 43235; principal; 2023-12-28 11:50)
DX: K20.0 Eosinophilic esophagitis (principal); K22.2 Esophageal obstruction; R13.19 Other dysphagia; K21.9 Gastro-esophageal reflux disease without esophagitis; K44.9 Diaphragmatic hernia without obstruction or gangrene; R05.9 Cough, unspecified; R06.83 Snoring; Z86.13 Personal history of malaria; Z79.899 Other long term (current) drug therapy; Z88.0 Allergy status to penicillin
CPT/HCPCS: 43249; 43239; 88305; 88313; C1726; J1596; J2704

== ENCOUNTER → 2023-12-28 10:09 | Outpatient (BNV) | payer OTHER, SELFPAY | PROVIDERS: PCP Nurse Practitioner Family; Visit Provider Internal Medicine | DX: K20.0 Eosinophilic esophagitis (principal); K22.2 Esophageal obstruction | CPT/HCPCS: 43239; 43249 ==

== ENCOUNTER 2024-01-12 11:56 | Outpatient (AMB) | payer OTHER, SELFPAY ==
[2024-01-12 12:01] VITALS: BP 145/95; PULSE 55; BMI 35.1
--- NOTE | 2024-01-12 12:01 | A.OFFVIS_ITS ---
Vital Signs 01/12/24 12:01 Height 6 ft Weight 258 lb 13.163 oz BMI 35.1 BP 145/95 H Blood Pressure Location Lt brachial Position Sitting Pulse 55 Intake Visit Reasons: S/P EGD Intake Note: Salas presents in follow up of EGD. CC: Patient reports doing well today and denies having any new GI concerns. Cash Applications Analyst Required: No Accompanied by: Self / Same As Patient Allergies penicillin G Allergy (Mild, Verified 12/28/23 10:19) Rash HPI Comments Details: 42 y.o M with PMH of EoE who is here for follow up. 04/27/23: Works for the [employer] so relocates frequently. Was initially diagnosed in 2007 in [place] however has had symptoms most of his life. Brother also has EoE. Most recent care was in [place] where he had last EGD in 2020. Has needed dilation x3. Has had at least 4-5 visits to the ER for food obstruction most recently in 2021 in [facility]. Currently on omeprazole 40 BID. At one point was taking fluticasone inh for topical treatment but was stopped. Has also tried elimination diet based on skin allergy testing however does not think it helps. Does not think was ever on dedicated 6FED. Current symptoms are difficulty swallowing 1-2 times a week aby with meat or pasta. Cuts it up into very small and chews thoroughly. Last colo 2017 - hemorrhoids. EGD 07/08/2023: Mucosa biopsy consistent with EoE 75EOS. Balloon dilation 15-18 mm. EGD 10/07/2023: Mucosa biopsy consistent with EoE 100EOS. Balloon dilation 15-18. EGD 12/28/2023: Normal mucosa in the proximal esophagus 6EOS. Grade C esophagitis in lower esophagus around 24EOS. Balloon dilation from 18-20 mm. 01/12/24: Reviewed with the patient that based on endoscopic appearance and histology findings, this may be due to reflux disease rather than eosinophilic esophagitis given low eosinophil count in the proximal esophagus, and grade C erosive esophagitis noted on endoscopy in the lower esophagus. Patient previously tried elimination diet but not sustainable. [facility] Medical History Eosinophilic esophagitis Elevated cholesterol Malaria Surgical History History of esophagogastroduodenoscopy (EGD) H/O colonoscopy Hx of tonsillectomy H/O endoscopy Family History Father Heart attack High blood pressure Mother S/P triple vessel bypass Diabetes Brother Eosinophilic esophagitis Social History Housing: House Alcohol intake: current Alcohol intake frequency: holidays/special occasions only Alcohol type: beer Patient Tobacco Use Status: Never used Tobacco e-Cigarette/Vaping Use: Never Used service: Yes Current occupational status: employed Current occupation: [employer] Current occupational exposures/hazards: No Cognitive needs: No Hearing needs: No Vision needs: No Review of Systems Const All systems reviewed & are unremarkable except as noted in HPI and below Physical Exam Vital Signs: Last Vital Signs Pulse 55 01/12/24 12:01 BP 145/95 H 01/12/24 12:01 BMI result Body Mass Index 35.1 No acute distress Obesity Abdomen soft, nondistended Alert and oriented x3, normal Assessment & Plan Assessment & Plan (1) Eosinophilic esophagitis: Code(s): K20.0 - Eosinophilic esophagitis Category: Medical (2) Dysphagia: Code(s): R13.10 - Dysphagia, unspecified Category: Medical (3) Benign esophageal stricture: Code(s): K22.2 - Esophageal obstruction Category: Medical Plan Discussed with the patient, that given findings on most recent EGD compatible with erosive esophagitis, with histological remission of EoE noted in proximal esophagus, will favor intensifying anti secretory therapy for now. Continue budesonide 1 mg b.i.d. as is. Will need repeat EGD in 3 months to review response. Plan: - Cont budesonide 1mg BID to be made into viscous slurry and swallowed - Stop protonix, switch to nexium 20 mg once daily - Repeat EGD in 3 months Follow up after EGD Medications: New esomeprazole magnesium (Nexium) 20 mg PO DAILY 90 caps 1RF K20.0 - Eosinophilic esophagitis esomeprazole magnesium (Nexium) 20 mg PO DAILY 90 caps 1RF K20.0 - Eosinophilic esophagitis Changed From budesonide 1 mg (8 mL) PO BID PRN 180 mL 0RF Eosinophilic esophagitis K20.0 - Eosinophilic esophagitis To budesonide 1 mg (8 mL) PO BID 180 mL 1RF Eosinophilic esophagitis K20.0 - Eosinophilic esophagitis Discontinued pantoprazole Discontinued Reason: Doctor's Order 40 mg PO DAILY 30 tabs 4RF K21.9 - Gastro-esophageal reflux disease without esophagitis Coding Level of Care Code Est Pt Level 4 (24125) Diagnoses Eosinophilic esophagitis K20.0 Dysphagia R13.10 Benign esophageal stricture K22.2
== END 2024-01-12 14:09 | disposition home or self-care (01) ==
PROVIDERS: PCP Nurse Practitioner Family; Visit Provider Internal Medicine
DX: K20.0 Eosinophilic esophagitis (principal); R13.10 Dysphagia, unspecified; K22.2 Esophageal obstruction
CPT/HCPCS: 99214

== ENCOUNTER → 2024-01-12 11:56 | Outpatient (BNVA) | payer OTHER, SELFPAY | PROVIDERS: PCP Nurse Practitioner Family; Visit Provider Internal Medicine | DX: K20.0 Eosinophilic esophagitis (principal); K22.2 Esophageal obstruction; R13.10 Dysphagia, unspecified | CPT/HCPCS: 99212 ==

== ENCOUNTER 2024-01-19 15:24 | Outpatient (AMB) | payer OTHER, SELFPAY ==
--- NOTE | 2024-01-19 15:32 | MHC.PC.OV ---
Vital Signs 01/19/24 15:35 Height 6 ft Weight 255 lb 6 oz BMI 34.6 BP 112/82 Blood Pressure Location Lt brachial Position Sitting Pulse 90 Pulse Source Pulse Oximeter Pulse Oximetry (%) 93 Oxygen Delivery Method Room Air Intake Visit Reasons: transfer of care from [facility] Intake Note: Patient is here to follow up on [facility] Complain of pain on right side of neck radiating up to ear, sore throat, per pt possible apses because had it recently. Form Setter Steel Pan Forms Required: No Ticket Sales Supervisor: Not Required per policy Accompanied by: Self / Same As Patient Allergies penicillin G Allergy (Mild, Verified 01/19/24 16:12) Rash Medication List - Last Reconciled 01/19/24 by Jose Barba MD budesonide 1 mg (8 mL) PO BID cetirizine (Zyrtec) 10 mg PO DAILY PRN esomeprazole magnesium (Nexium) 20 mg PO DAILY fluticasone propionate 50 mcg/actuation 1 spray intranasal BID prednisone 60 mg (3 x 20 mg) PO DAILY sulfamethoxazole-trimethoprim 800-160 mg (Bactrim DS) 1 tab PO BID 7 days Tobacco use date assessed: 01/19/24 Dental Screening Dental Screen Date: 01/19/24 Did you have a dental visit in the last 12 months?: Yes Did you have a dental problem in the last 6 months where you did not have access to dental care?: No Was dental information given to patient?: Patient has dentist HPI transfer of care from [facility] HPI Details 43 yr old male presents to the office to discuss his medical issues. I will be his primary provider as his provider has left the practice. He is reporting pain on swallowing and pain in the right ear for the past four days. Difficulty swallowing. low grade fever. A month ago, he had similiar complaints and was found to have a tonsillar abscess. Was admitted to [facility]. Given Abx and prednisone and was seen by ENT who attempted to drain the abscess. History of esophageal stricture. On PPI. Patient is active . [facility] Medical History Eosinophilic esophagitis Elevated cholesterol Malaria Surgical History History of esophagogastroduodenoscopy (EGD) H/O colonoscopy Hx of tonsillectomy H/O endoscopy Family History Father Heart attack High blood pressure Mother S/P triple vessel bypass Diabetes Brother Eosinophilic esophagitis Social History Housing: House Alcohol intake: current Alcohol intake frequency: a few times a month Alcohol type: beer Patient Tobacco Use Status: Never used Tobacco e-Cigarette/Vaping Use: Never Used Second Hand Smoke Exposure: No service: Yes Current occupational status: employed Current occupation: [employer] Current occupational exposures/hazards: No Cognitive needs: No Hearing needs: No Vision needs: No Questionnaire PHQ-9 Over the last 2 weeks, how often have you been bothered by any of the following problems? 1. Little interest or pleasure in doing things: not at all 2. Feeling down, depressed, or hopeless: not at all 3. Trouble falling or staying asleep, or sleeping too much: not at all 4. Feeling tired or having little energy: not at all 5. Poor appetite or overeating: not at all 6. Feeling bad about yourself - or that you are a failure or have let yourself or your family down: not at all 7. Trouble concentrating on things, such as reading the newspaper or watching television: not at all 8. Moving or speaking so slowly that other people could have noticed. Or the opposite - being so fidgety or restless that you have been moving around a lot more than usual: not at all 9. Thoughts that you would be better off or of hurting yourself in some way: not at all Total score: 0 Depression Screening Interpretation: Negative Depression Screening Done: Yes Source: Developed by Drs. Yair Joshi, Ada Bartlett, Fernie Arroyo and colleagues, with an educational khadar from [employer]. Thrive Questionnaire Date Thrive assessed: 01/19/24 I am a: Patient What is your living situation today?: I have a steady place to live Within the past 12 months, did the food you bought not last and you didn't have the money to get more?: Never true Within the past 12 months, did you worry whether your food would run out before you got money to buy more?: Never true Do you have trouble paying for medicines?: No Do you have trouble getting transportation to medical appointments?: No Do you have trouble paying your heating and electricity bill?: No Do you have trouble taking care of your child, family member or friend?: No Do you have trouble with day-to-day activities such as bathing, preparing meals, shopping, managing finances, etc.?: No Are you currently unemployed and looking for a job?: No Are you interested in more education?: No Currently or been in a relationship where the following occur: no concerns reported THRIVE Score: 0 AUDIT C Alcohol Use Questionnaire (AUDIT-C) 1. How often do you have a drink containing alcohol?: Never Total Score: 0 NATY-7 AMB Questionnaire NATY-7 Date NATY - 7 assessed: 01/19/24 Feeling nervous, anxious, or on edge: 0 = Not at all Not being able to stop or control worryin = Not at all Worrying too much about different things: 0 = Not at all Trouble relaxin = Not at all Being so restless that it is hard to sit still: 0 = Not at all Becoming easily annoyed or irritable: 0 = Not at all Feeling afraid as if something awful might happen: 0 = Not at all Total NATY-7 score (0-4 normal; 5-9 mild; 10-14 moderate; 15-21 severe): 0 Source: Developed by Drs. Yair Joshi, Ada Bartlett, Fernie Arroyo and colleagues, with an educational khadar from [employer]. Physical exam (Primary Care) Vital Signs: Last Vital Signs Pulse 90 01/19/24 15:35 BP 112/82 01/19/24 15:35 Pulse Ox 93 01/19/24 15:35 Oxygen Delivery Method Room Air 01/19/24 15:35 BMI result Body Mass Index 34.6 Tobacco/Smoking Status: Tobacco use Status Tobacco use date assessed 01/19/24 01/19/24 15:41 Patient Tobacco Use Status Never used Tobacco 01/19/24 15:41 e-Cigarette/Vaping Use Never Used 01/19/24 15:41 PHQ-9: PHQ-9 Score PHQ-9: Total score 0 01/19/24 15:41 Depression Screening Interpretation: Negative Thrive Assessment: Date of Thrive Assessment Date Thrive assessed 01/19/24 01/19/24 15:41 Currently or been in a relationship where the following occur: no concerns reported Const General: cooperative and healthy appearing Nutritional Appearance: well nourished Orientation/consciousness: patient oriented x3 Limitations: no limitations HENMT Other: Throat: Posterior pharyngeal wall is red. Tonsils are not appreciated. Head: Yes normal to inspection Eyes General: appearance normal, both eyes and all related structures Neck Neck: Yes normal visual inspection Chest Chest palpation & inspection: normal palpation of entire chest wall Resp Effort & Inspection: normal respiratory effort Neuro General: patient oriented x3 Assessment and Plan Assessment & Plan (1) Acute pharyngitis: Code(s): J02.9 - Acute pharyngitis, unspecified Plan: In view of his previous history, aggressive treatment with abx and prednisone started. Pt has an ENT appt at the end of the month (deviated nasal septum). Encouraged him to keep the same. Medications: New sulfamethoxazole-trimethoprim 800-160 mg (Bactrim DS) 1 tab PO BID 14 tabs 0RF 7 days prednisone 60 mg (3 x 20 mg) PO DAILY 9 tabs 0RF Coding Level of Care Code Est Pt Level 3 (19040) Diagnoses Acute pharyngitis J02.9
[2024-01-19 15:35] VITALS: BP 112/82; PULSE 90; O2SAT 93; BMI 34.6
== END 2024-01-19 16:03 | disposition home or self-care (01) ==
PROVIDERS: PCP Nurse Practitioner Family; Visit Provider Internal Medicine
DX: J02.9 Acute pharyngitis, unspecified (principal)
CPT/HCPCS: 99213

== ENCOUNTER 2024-02-01 09:23 | Outpatient (AMB) | payer OTHER, SELFPAY ==
--- NOTE | 2024-02-01 09:32 | A.OFFVIS_ITS ---
Vital Signs 02/01/24 09:33 Height 6 ft Weight 258 lb BMI 35.0 BP 136/83 Blood Pressure Location Rt brachial Position Sitting Pulse 73 Intake Visit Reasons: gallstones Intake Note: Patient schedule today's appointment for gallstones. Was seen at [facility] on 01-29-24. Patient c/o: abd pain. Pain under control with Oxycodone. Toll Bridge Attendant Required: No Accompanied by: Self / Same As Patient Allergies penicillin G Allergy (Mild, Verified 02/01/24 09:38) Rash HPI Comments Details: Patient was recently seen approximate week ago at an outside facility where he had a workup for severe right upper quadrant/epigastric pain radiating around to his back. Workup including CT scan demonstrated findings consistent with acute cholecystitis. For reasons that are unclear to me, patient was discharged home with analgesics. He presents here because of persistence of symptoms which are improved but nonetheless still bothering him. Patient otherwise tolerates a diet. He is regular bowel habits. He has never been jaundiced before. Chart was reviewed and patient evaluated [facility] Medical History Eosinophilic esophagitis Elevated cholesterol Malaria Surgical History History of esophagogastroduodenoscopy (EGD) H/O colonoscopy Hx of tonsillectomy H/O endoscopy Family History Father Heart attack High blood pressure Mother S/P triple vessel bypass Diabetes Brother Eosinophilic esophagitis Social History Housing: House Alcohol intake: current Alcohol intake frequency: a few times a month Alcohol type: beer Patient Tobacco Use Status: Never used Tobacco e-Cigarette/Vaping Use: Never Used Second Hand Smoke Exposure: No service: Yes Current occupational status: employed Current occupation: [employer] Current occupational exposures/hazards: No Cognitive needs: No Hearing needs: No Vision needs: No Physical Exam Vital Signs: Last Vital Signs Pulse 73 02/01/24 09:33 BP 136/83 02/01/24 09:33 BMI result Body Mass Index 35.0 Chest Other: Chest breath sounds bilaterally, HS 1 in 2 GI Other: Corpulent, soft, mild right upper quadrant tenderness. No evidence of any guarding, rebound, rigidity. Assessment & Plan Assessment & Plan (1) Cholecystitis: Code(s): K81.9 - Cholecystitis, unspecified Category: Surgical Plan Risks, benefits, alternatives laparoscopic possible open cholecystectomy reviewed with the patient and included but not limited to bleeding, infection, recurrence of symptoms , numbness, pain, scarring , bowel or bile duct injury or leak and the patient wished to proceed. All questions answered. Arrangements were made for this. Coding Level of Care Code New Pt Level 5 (64492) Diagnoses Cholecystitis K81.9
[2024-02-01 09:33] VITALS: BP 136/83; PULSE 73; BMI 35.0
== END 2024-02-01 09:59 | disposition home or self-care (01) ==
PROVIDERS: PCP Internal Medicine; Visit Provider Surgery
DX: K81.9 Cholecystitis, unspecified (principal)
CPT/HCPCS: 99205

== ENCOUNTER → 2024-02-01 09:23 | Outpatient (BNVA) | payer OTHER, SELFPAY | PROVIDERS: PCP Internal Medicine; Visit Provider Surgery | DX: K81.9 Cholecystitis, unspecified (principal) | CPT/HCPCS: 99202 ==

== ENCOUNTER 2024-02-02 09:31 | Inpatient (IN) | payer OTHER, SELFPAY ==
[2024-02-02 09:34] VITALS: BP 139/98; PULSE 69; RESP 18; TEMP 36.6; O2SAT 98; BMI 33.9
[2024-02-02 10:00] LABS: MANUAL DIFF FLAG NO
[2024-02-02 10:01] LABS: Basophils Percent Auto 0.5 % (0-2); Eosinophils Absolute Auto 0.1 X10*3/uL (0.0-0.4); Eosinophils Percent Auto 2.1 % (0-4); Hematocrit 42.4 % (42.0-52.0); Imm Gran Abs Auto 0.02 X10*3/uL (0.00-0.03); Imm Gran Pct Auto 0.3 % (0.0-0.4); Lymphocytes Absolute Auto 1.6 X10*3/uL (1.2-4.9); Lymphocytes Percent Auto 26.6 % (20-40); Mean Corpuscular HGB Conc 35.4 g/dl (31.0-36.0); Mean Corpuscular Hemoglobin 29.8 pg (27.0-33.0); Mean Corpuscular Volume 84.1 fL (80.0-98.0); Mean Platelet Volume 9.6 fL (9.4-12.4); Monocytes Absolute Auto 0.4 X10*3/uL (0.1-1.2); Monocytes Percent Auto 6.7 % (2-11); Neutrophils Absolute Auto 3.9 x10*3/uL (2.0-8.3); Neutrophils Percent Auto 63.8 % (45-73); Platelet Count 211 X10*3/uL (160-400); Red Blood Count 5.04 X10*6/uL (4.60-5.80); Red Cell Distribution Width 12.4 % (11.0-16.0); White Blood Count 6.1 X10*3/uL (4.8-10.8)
[2024-02-02 10:16] LABS: Alanine Aminotransferase 35 U/L (0-40); Albumin Level 4.6 g/dL (3.5-5.0); Alkaline Phosphatase 45 U/L (39-117); Anion Gap 9 (12-20); Aspartate Amino Transferase 21 U/L (5-37); Bilirubin Direct 0.3 mg/dL (0.0-0.5); Bilirubin Total 0.8 mg/dL (0.0-1.0); Blood Urea Nitrogen 12 mg/dL (9-16); Calcium 9.6 mg/dL (8.4-10.2); Carbon Dioxide 25 mmol/L (22-29); Chloride 109 mmol/L (96-108); Creatinine Clr Calc Pharmacy 126.3; Estimated Glomerular Filt Rate > 60; Glucose Random 96 mg/dL (60-115); Lipase 28 U/L (8-78); Potassium 3.9 mmol/L (3.3-5.1); Sodium 139 mmol/L (135-145); Total Protein 7.4 g/dL (6.5-8.0)
--- NOTE | 2024-02-02 10:22 | ED_ITS ---
HPI - Abdominal Pain General Chief Complaint: Abdominal Pain Stated Complaint: Gallbladder stones Time Seen by Provider: 02/02/24 10:19 Source: patient Mode of arrival: ambulatory Limitations: no limitations History of Present Illness ED Provider: Maria De Jesus SHAW HPI narrative: This is a 43 year old male hx of obesity, hld, galstones ( recent dx), eosinophilic esophagitis presenting w/ epigastric pain RUQ pain X few days worsening. Patient reports a/c nausea and vomiting. He was seen at [facility] on Wednesday told his galbladder was enlarged and told he had gal stones and that his galbladder had to come out. He followed up with Dr. Kent yesterday who also told him that he needs surgery and was planning to do it at some point next week. Patient taking oxycodone for pain withour relief. No CP,SOB, headahce, vision changes, dizziness, weakness, fevers, chills. Hasnt eaten today. Related Data Previous Rx's ?Medication ?Instructions ?Recorded cetirizine 10 mg tablet (Zyrtec) 10 mg PO DAILY PRN allergy 12/08/23 symptoms #30 tabs fluticasone propionate 50 1 spray intranasal BID #48 grams 12/08/23 mcg/actuation nasal spray,suspension budesonide 0.25 mg/2 mL suspension 1 mg (8 mL) PO BID Eosinophilic 01/12/24 for nebulization esophagitis #180 mL esomeprazole magnesium 20 mg 20 mg PO DAILY #90 caps 01/17/24 capsule,delayed release (Nexium) Allergies Allergy/AdvReac Type Severity Reaction Status Date / Time penicillin G Allergy Mild Rash Verified 02/02/24 09:37 Review of Systems Review of Systems Yes all other systems are reviewed and are negative [facility] Past Medical History Attestation statement: The following information was validated with the patient. Source: old records reviewed and nursing notes reviewed Medical History Eosinophilic esophagitis Elevated cholesterol [place] Surgical History History of esophagogastroduodenoscopy (EGD) H/O colonoscopy Hx of tonsillectomy H/O endoscopy Family History Family History Father Heart attack High blood pressure Mother S/P triple vessel bypass Diabetes Brother Eosinophilic esophagitis Social History Social History Housing: House Alcohol intake: current Alcohol intake frequency: a few times a month Alcohol type: beer Patient Tobacco Use Status: Never used Tobacco e-Cigarette/Vaping Use: Never Used Second Hand Smoke Exposure: No service: Yes Current occupational status: employed Current occupation: [employer] Current occupational exposures/hazards: No Cognitive needs: No Hearing needs: No Vision needs: No Physical Exam ED Vital Signs: Vital Signs - 24 hr 02/02/24 09:34 Temperature 98 F Pulse Rate 69 Respiratory Rate 18 Blood Pressure 139/98 H Pulse Oximetry 98 Oxygen Delivery Method Room Air BMI result Body Mass Index 33.9 vss Appearance: Alert.? Oriented X3.? No acute distress.?Appears uncomfortable. Head: Normocephalic, atraumatic, no step-offs or deformities Eyes: Pupils equal, round and reactive to light.? CVS: Normal heart rate and rhythm.? Pulses normal.? Respiratory: No respiratory distress.? Breath sounds normal.? Abdomen: Soft and + RUQ pain w/ + murphys sign and epigastric TTP on palpation. .? Skin: Skin warm and dry.? Normal skin color.? Normal skin turgor.? Extremities: No lower extremity edema.? No calf ttp. 5/5 strength to bilateral upper and lower extremities Neuro: Oriented X 3.? No motor deficit.? No sensory deficit. CN 2-12 intact Course Reevaluation(s) Reevaluation #1: CBC no acute findings. Chemistry unremarkable. Reached out to Dr. Kent recommends admission and likley galbladder removal tomorrow. Advised me to reach out to surgical PA. Patient NPO added iNR and EKG for preop. Patient aware of plan. Plan is hospital admission. Time: 10:40 Medical Decision Making Medical Decision Making [facility] Narrative: 1036 43 yo m presents w/ nausea, vomiting and abd pain X few days worsening PE w/ RUQ pain w/ + murphys sign and epigastric TTP on palpation. Hx and PE concerning for acute cholecystitis. Unlikely choleangitis, choledocolythiasis. No signs of systemic illnes. Plan- labs, urine Differential Diagnosis Differential Diagnoses: The differential diagnosis associated with the presentation includes Hx and PE concerning for acute cholecystitis. Unlikely choleangitis, choledocolythiasis. No signs of systemic illnes. Admission/Observation Consideration of admission/observation: Escalation of care including admission/observation considered Consult Healthcare Provider Management of the patient was discussed with: Pole [employer] ( ) Lab Data MDM Lab Attestation statement: I reviewed the patient's lab results. 02/02/24 09:54 02/02/24 09:54 Labs: Lab Results 02/02/24 Range/Units 09:54 WBC 6.1 (4.8-10.8) X10*3/uL RBC 5.04 (4.60-5.80) X10*6/uL Hgb 15.0 (14.0-18.0) g/dl Hct 42.4 (42.0-52.0) % MCV 84.1 (80.0-98.0) fL MCH 29.8 (27.0-33.0) pg MCHC 35.4 (31.0-36.0) g/dl RDW 12.4 (11.0-16.0) % Plt Count 211 D (160-400) X10*3/uL MPV 9.6 (9.4-12.4) fL Immature Gran % (Auto) 0.3 (0.0-0.4) % Neut % (Auto) 63.8 (45-73) % Lymph % (Auto) 26.6 (20-40) % [place] % (Auto) 6.7 (2-11) % Eos % (Auto) 2.1 (0-4) % Baso % (Auto) 0.5 (0-2) % Lymph # (Auto) 1.6 (1.2-4.9) X10*3/uL [place] # (Auto) 0.4 (0.1-1.2) X10*3/uL Eos # (Auto) 0.1 (0.0-0.4) X10*3/uL Baso # (Auto) 0.0 (0.0-0.2) X10*3/uL Abs Immat Gran (auto) 0.02 (0.00-0.03) X10*3/uL Absolute Neuts (auto) 3.9 (2.0-8.3) x10*3/uL Absolute Nucleated RBC 0.000 (0.0-0.012) X10*3/uL Nucleated RBC % (auto) 0.0 (0.0-0.2) /100WBC Sodium 139 (135-145) mmol/L Potassium 3.9 (3.3-5.1) mmol/L Chloride 109 H (96-108) mmol/L Carbon Dioxide 25 (22-29) mmol/L Anion Gap 9 L (12-20) BUN 12 (9-16) mg/dL Creatinine 0.98 (0.5-1.4) mg/dL Estim Creat Clear Calc 126.3 Estimated GFR > 60 Random Glucose 96 (60-115) mg/dL Calcium 9.6 (8.4-10.2) mg/dL Total Bilirubin 0.8 (0.0-1.0) mg/dL Direct Bilirubin 0.3 (0.0-0.5) mg/dL AST 21 (5-37) U/L ALT 35 (0-40) U/L Alkaline Phosphatase 45 (39-117) U/L Total Protein 7.4 (6.5-8.0) g/dL Albumin 4.6 (3.5-5.0) g/dL Lipase 28 (8-78) U/L Independent Interpretation Interpretation: No need for repeat imaging per patient had CT and US done wednesday will request imaging Radiology Impression Discussion of test interpretation with radiology: I have reviewed the radiologist's reading. External Record Review External record reviewed: Inpatient record, Office record, Outpatient record, Prior outpatient labs and Prior outpatient radiology Critical Care Time Critical Care Time Critical Care Time: Yes Total Critical Care Time: 45 Attestation: I attest to this time spent taking care of the patient, obtaining history, physical, reviewing labs, imaging, speaking to my attending, speaking to specialist. Discharge Plan Discharge Clinical Impression: Cholecystitis, Nausea & vomiting Patient Disposition: Still a Patient Prescriptions: No Action cetirizine [Zyrtec] 10 mg tablet 10 mg PO DAILY PRN (Reason: allergy symptoms) Qty: 30 3RF fluticasone propionate 50 mcg/actuation spray,suspension 1 spray intranasal BID Qty: 48 0RF esomeprazole magnesium [Nexium] 20 mg capsule,delayed release(DR/EC) 20 mg PO DAILY Qty: 90 1RF budesonide 0.25 mg/2 mL suspension for nebulization 1 mg PO BID Qty: 180 1RF Print Language: Greek
--- NOTE | 2024-02-02 10:23 | ECG_ITS ---
Test Reason : SCHEDULED SURGERY Blood Pressure : / mmHG Vent. Rate : 063 BPM Atrial Rate : 063 BPM P-R Int : 162 ms QRS Dur : 100 ms QT Int : 438 ms P-R-T Axes : 047 -08 006 degrees QTc Int : 448 ms Normal sinus rhythm Normal ECG No previous ECGs available Referred By: Dionisio Quinn Electronically Signed By:PEGGY FARIA
[2024-02-02 10:53] VITALS: BP 145/97; PULSE 62; RESP 12; TEMP 36.9; O2SAT 96
[2024-02-02] MEDS: Morphine Sulfate 4 MG/ML CARTRIDGE IVPUSH (11:31)
[2024-02-02] MEDS: Lactated Ringers 1,000 ML 80 ML IVCONT ×2 (11:31→23:50)
[2024-02-02 12:20] VITALS: BP 111/71; PULSE 52; RESP 12; TEMP 36.6; O2SAT 95
--- NOTE | 2024-02-02 14:24 | PHA.MEDREC ---
Pharmacy Consult ? Medication Reconciliation Pharmacy has completed the medication reconciliation. spoke with patient to confirm medications. He confirmed he uses the budesonide by mouth.
[2024-02-02 14:25] VITALS: BP 115/85; PULSE 60; RESP 20; TEMP 36.5; O2SAT 97
--- NOTE | 2024-02-02 14:43 | PC.NURSE ---
Report given to Maira in overflow
[2024-02-02] MEDS: oxyCODONE HCl Immed Release 5 MG TABLET PO (15:02)
--- NOTE | 2024-02-02 15:20 | PM.HPGS ---
History of Present Illness History of Present Illness Date of Service: 02/02/24 Chief complaint: acute cholecystitis Narrative: Chacorta Vásquez is a 43 year old male with PMH significant for esophageal stricture, eosinophilic esophagitis who presented to the ED with RUQ abd pain and nausea. He reports this current episode of pain began a week ago. It was sudden in onset and began in the epigastric/RUQ area and wrapped around his upper back. This was associated with nausea and lack of appetite. Due to the persistence of pain, he was seen at an outside facility ED on Wednesday for the pain. He was diagnosed with gallstones and a distended gallbladder at that time and was told it should be removed however was discharged to home on pain meds. He reports the pain had not resolved or improved at that time. He was seen yesterday in the office by Dr. Kent and was scheduled for an elective cholecystectomy next week. He however had severe persistence of pain and the pain medication was no longer helping. He therefore came to the [facility] ED for further treatment. CBC, BMP, LFTs were obtained which were all WNL. He denies previous episodes of similar pain. He denies fever, chills, vomiting, diarrhea. Review of Systems Constitutional: Constitutional: Denies chills and Denies fever(s) ENT: Denies dizziness Cardiovascular: Cardiovascular: Denies chest pain and Denies dyspnea Respiratory: Respiratory: Denies dyspnea Gastrointestinal: Gastrointestinal: Reports as per HPI Integumentary/Breasts: Skin/Breast: Denies rash and Denies jaundice Neurologic: Denies dizziness [facility] Past Medical History Medical History Eosinophilic esophagitis Elevated cholesterol Malaria Family History Family History Father Heart attack High blood pressure Mother S/P triple vessel bypass Diabetes Brother Eosinophilic esophagitis Surgical History Surgical History History of esophagogastroduodenoscopy (EGD) H/O colonoscopy Hx of tonsillectomy H/O endoscopy Social History Social History Housing: House Alcohol intake: current Alcohol intake frequency: holidays/special occasions only Alcohol type: beer Patient Tobacco Use Status: Never used Tobacco Smoked in Last 30 Days: No e-Cigarette/Vaping Use: Never Used Second Hand Smoke Exposure: No Use of substances other than those prescribed or required for medical reasons: No Advance Directives: No Advance Directives Information Provided: Yes service: Yes Current occupational status: employed Current occupation: [employer] Current occupational exposures/hazards: No Cognitive needs: No Hearing needs: No Vision needs: No Meds Allergies Allergy/AdvReac Type Severity Reaction Status Date / Time penicillin G Allergy Mild Rash Verified 02/02/24 09:37 Active Medications: Current Medications Acetaminophen (Acetaminophen 325 Mg Tablet) 650 mg PO Q6H PRN PRN Reason: Pain, Mild (Pain Scale 1-3) Budesonide (Budesonide 0.25 Mg/2 Ml Ampul.Neb) 1 mg INHALE BID [facility] Docusate Sodium (Docusate Sodium 100 Mg Capsule) 100 mg PO DAILY PRN PRN Reason: Constipation Fluticasone Propionate (Fluticasone Propionate Nasal 16 Gm [place]) 1 spray NOSTRIL-B DAILY [facility] Hydromorphone HCl (Hydromorphone Hcl 1 Mg/Ml Syringe) 0.5 mg IVPUSH Q4H PRN; Protocol PRN Reason: Pain, Severe (Pain Scale 7-10) Lactated Ringer's (Lr) 1,000 mls @ 80 mls/hr IVCONT .[id number] [facility] Last Admin: 02/02/24 11:31 Dose: 80 mls/hr Non-Formulary Medication (Esomeprazole Magnesium [Nexium]) 20 mg PO DAILY [facility] Ondansetron HCl (Ondansetron Hcl 4 Mg/2 Ml Vial) 4 mg IVPUSH Q8H PRN PRN Reason: Nausea and Vomiting Oxycodone HCl (Oxycodone Hcl Immed Release 5 Mg Tablet) 5 mg PO Q4H PRN PRN Reason: Pain, Moderate(Pain Scale 4-6) Last Admin: 02/02/24 15:02 Dose: 5 mg Sodium Chloride (0.9 % Sodium Chloride Flush 3 Ml Syringe) 3 ml IVFLUSH QSHIFT [facility] Last Admin: 02/02/24 15:11 Dose: Not Given Home Medications ?Medication ?Instructions ?Recorded ?Confirmed ?Last Taken ?Type cetirizine 10 mg tablet (Zyrtec) 10 mg PO DAILY allergy symptoms 02/02/24 02/02/24 Unknown History fluticasone propionate 50 1 spray intranasal DAILY 02/02/24 02/02/24 Unknown History mcg/actuation nasal spray,suspension ondansetron 4 mg disintegrating 4 mg PO Q8H PRN Nausea And Vomiting 02/02/24 02/02/24 Unknown History tablet oxycodone-acetaminophen 5 mg-325 1 tab PO Q6H PRN Pain 02/02/24 02/02/24 02/01/24 History mg tablet Physical Exam Vital Signs: Vital Signs: Last Vital Signs Temp 97.7 F 02/02/24 14:25 Pulse 60 02/02/24 14:25 Resp 20 02/02/24 14:25 BP 115/85 02/02/24 14:25 Pulse Ox 97 02/02/24 14:25 O2 Del Method Room Air 02/02/24 14:25 BMI result Body Mass Index 33.9 Const: General: comfortable, no acute distress and alert Orientation/consciousness: patient oriented x3 Resp: Effort & Inspection: normal respiratory effort Cardio: Rate: regular rate GI: Inspection: No distended Palpation (GI): Soft to palpation, Tenderness to palpation present (GI) in the RUQ (moderate ); Lees's sign negative and no guarding Skin: General skin exam: no rashes or lesions noted Neuro: General: patient oriented x3 and moves all extremities Extrem: General: Yes no clubbing, cyanosis or edema Results Results Labs: Short CBC 02/02/24 Range/Units 09:54 WBC 6.1 (4.8-10.8) X10*3/uL Hgb 15.0 (14.0-18.0) g/dl Hct 42.4 (42.0-52.0) % Plt Count 211 D (160-400) X10*3/uL BMP 02/02/24 09:54 Sodium 139 Potassium 3.9 Chloride 109 H Carbon Dioxide 25 BUN 12 Creatinine 0.98 Calcium 9.6 Liver Function 02/02/24 Range/Units 09:54 Total Bilirubin 0.8 (0.0-1.0) mg/dL Direct Bilirubin 0.3 (0.0-0.5) mg/dL AST 21 (5-37) U/L ALT 35 (0-40) U/L Alkaline Phosphatase 45 (39-117) U/L Albumin 4.6 (3.5-5.0) g/dL Assessment and Plan (1) Cholecystitis: Status: Acute Plan Chacorta Vásquez is a 43 year old male with PMH significant for esophageal stricture, eosinophilic esophagitis with RUQ abd pain and nausea for 1 week with RUQ tenderness on exam. Patient seen and had imaging at an outpatient facility. Due to the persistence of pain despite conservative management, will admit to the surgical service and plan for lap juan, possible open tomorrow. Risks, benefits, alternatives of laparoscopic possible open cholecystectomy were reviewed with the patient including but not limited to bleeding, infection, numbness, pain, poor healing, injury to the liver, bowel or bile ducts, leak, retained stones and the patient wishes to proceed.? Arrangements will be made for this.?All questions were answered. Quality Stroke Does the patient have a stroke diagnosis?: No VTE Prior VTE?: No VTE Risk Level:: Surgical - moderate VTE Device Contraindication: N/A - Device Ordered VTE Drug Contraindication: Treatment Not Indicated Procedures Date of Service Date of Service: 02/02/24
[2024-02-02] MEDS: HYDROmorphone HCl 1 MG/ML SYRINGE 0.5 MG IVPUSH (19:51)
[2024-02-02 20:19] VITALS: BP 116/62; PULSE 59; RESP 16; TEMP 36.6; O2SAT 95
--- NOTE | 2024-02-02 23:01 | PC.NURSE ---
PT medicated as per NOV. complains of 7/10 pain. Ambulating independently to bathroom. Moved to more private room-overflow 6. Plan for pt to be Npo after midnight. LR running at 80mls/hr
[2024-02-02] MEDS: 0.9 % Sodium Chloride Flush 3 ML SYRINGE IVFLUSH (23:50)
[2024-02-03] VITALS (13 sets, daily range): BP systolic 107–145; BP diastolic 62–92; PULSE 52–94; RESP 14–20; TEMP 36.1–36.6; O2SAT 93–98; BMI 34.4
[2024-02-03] MEDS: oxyCODONE HCl Immed Release 5 MG TABLET PO ×3 (05:21→23:46)
[2024-02-03] MEDS: HYDROmorphone HCl 1 MG/ML SYRINGE 0.5 MG IVPUSH ×2 (10:20→20:34)
[2024-02-03] MEDS: Lactated Ringers 1,000 ML 80 ML IVCONT ×2 (10:27→23:43)
--- NOTE | 2024-02-03 11:47 | MHC.CM.PN ---
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
--- NOTE | 2024-02-03 15:07 | P.CONAN_ITS ---
[facility] Active Problems Active Problems: All Active Problems Nausea & vomiting (Acute) Cholecystitis (Acute) Benign esophageal stricture (Acute) Dysphagia (Acute) Daytime sleepiness (Acute) Loud snoring (Acute) Hypercholesteremia (Acute) Eosinophilic esophagitis (Acute) Past Medical History Medical History Eosinophilic esophagitis Elevated cholesterol Malaria Family History Family History Father Heart attack High blood pressure Mother S/P triple vessel bypass Diabetes Brother Eosinophilic esophagitis Family history of problems with anesthesia: No Surgical History Surgical History History of esophagogastroduodenoscopy (EGD) H/O colonoscopy Hx of tonsillectomy H/O endoscopy History of Problems with Anesthesia: No Social History Social History Household Members: Spouse Housing: House Do you presently have visiting nurse or other home services: No Alcohol intake: current Alcohol intake frequency: holidays/special occasions only Alcohol type: beer Patient Tobacco Use Status: Never used Tobacco e-Cigarette/Vaping Use: Never Used Second Hand Smoke Exposure: No service: No (ACTIVE DUTY) Current occupational status: employed Current occupation: [employer] Current occupational exposures/hazards: No Cognitive needs: No Hearing needs: No Vision needs: No Meds Allergies Allergy/AdvReac Type Severity Reaction Status Date / Time penicillin G Allergy Mild Rash Verified 02/02/24 09:37 Active Medications: Current Medications Acetaminophen (Acetaminophen 325 Mg Tablet) 650 mg PO Q6H PRN PRN Reason: Pain, Mild (Pain Scale 1-3) Budesonide (Budesonide 0.5 Mg/2 Ml Ampul.Neb) 1 mg INHALE RBID [facility] Last Admin: 02/03/24 12:00 Dose: Not Given Docusate Sodium (Docusate Sodium 100 Mg Capsule) 100 mg PO DAILY PRN PRN Reason: Constipation Fluticasone Propionate (Fluticasone Propionate Nasal 16 Gm [place]) 1 spray NOSTRIL-B DAILY [facility] Last Admin: 02/03/24 09:41 Dose: Not Given Hydromorphone HCl (Hydromorphone Hcl 1 Mg/Ml Syringe) 0.5 mg IVPUSH Q4H PRN; Protocol PRN Reason: Pain, Severe (Pain Scale 7-10) Last Admin: 02/03/24 10:20 Dose: 0.5 mg Lactated Ringer's (Lr) 1,000 mls @ 80 mls/hr IVCONT .[id number] [facility] Last Admin: 02/03/24 10:27 Dose: 80 mls/hr Omeprazole (Omeprazole 20 Mg Capsule.Dr) 20 mg PO DAILY@0630 [facility] Last Admin: 02/03/24 06:15 Dose: Not Given Ondansetron HCl (Ondansetron Hcl 4 Mg/2 Ml Vial) 4 mg IVPUSH Q8H PRN PRN Reason: Nausea and Vomiting Oxycodone HCl (Oxycodone Hcl Immed Release 5 Mg Tablet) 5 mg PO Q4H PRN PRN Reason: Pain, Moderate(Pain Scale 4-6) Last Admin: 02/03/24 05:21 Dose: 5 mg Sodium Chloride (0.9 % Sodium Chloride Flush 3 Ml Syringe) 3 ml IVFLUSH QSHIFT [facility] Last Admin: 02/03/24 09:40 Dose: Not Given Home Medications ?Medication ?Instructions ?Recorded ?Confirmed ?Last Taken ?Type cetirizine 10 mg tablet (Zyrtec) 10 mg PO DAILY allergy symptoms 02/02/24 02/02/24 Unknown History fluticasone propionate 50 1 spray intranasal DAILY 02/02/24 02/02/24 Unknown History mcg/actuation nasal spray,suspension ondansetron 4 mg disintegrating 4 mg PO Q8H PRN Nausea And Vomiting 02/02/24 02/02/24 Unknown History tablet oxycodone-acetaminophen 5 mg-325 1 tab PO Q6H PRN Pain 02/02/24 02/02/24 02/01/24 History mg tablet Exam Height,Weight and Vital Signs: Height 6 ft Weight 115 kg Last Vital Signs Temp 97.4 F 02/03/24 13:20 Pulse 59 02/03/24 13:20 Resp 18 02/03/24 13:20 BP 115/75 02/03/24 13:20 Pulse Ox 97 02/03/24 13:20 O2 Del Method Room Air 02/03/24 13:20 Pertinent Lab Results Pertinent Lab Results: Laboratory Tests 02/02/24 09:54 WBC 6.1 RBC 5.04 Hgb 15.0 Hct 42.4 MCV 84.1 MCH 29.8 MCHC 35.4 RDW 12.4 Plt Count 211 D MPV 9.6 Immature Gran % (Auto) 0.3 Neut % (Auto) 63.8 Lymph % (Auto) 26.6 [place] % (Auto) 6.7 Eos % (Auto) 2.1 Baso % (Auto) 0.5 Lymph # (Auto) 1.6 [place] # (Auto) 0.4 Eos # (Auto) 0.1 Baso # (Auto) 0.0 Abs Immat Gran (auto) 0.02 Absolute Neuts (auto) 3.9 Absolute Nucleated RBC 0.000 Nucleated RBC % (auto) 0.0 Sodium 139 Potassium 3.9 Chloride 109 H Carbon Dioxide 25 Anion Gap 9 L BUN 12 Creatinine 0.98 Estim Creat Clear Calc 126.3 Estimated GFR > 60 Random Glucose 96 Calcium 9.6 Total Bilirubin 0.8 Direct Bilirubin 0.3 AST 21 ALT 35 Alkaline Phosphatase 45 Total Protein 7.4 Albumin 4.6 Lipase 28 Airway Mallampati Class: II TM Dist: >3cm Neck ROM: Full Loose/Missing/Broken Teeth: No Heart: rrr Lungs: cta Assessment and Plan Assessment Anesthesia Assessment: Anesthesia Plan Discussed Final Anesthetic Review Family History of Problems with Anesthesia: No History of Problems with Anesthesia: No NPO: Yes ASA Class: II Final Preanesthetic Review: No Changes in Pt Med Stat, Meds/Allgs Chart Reviewed, Consent Obtained/Reviewed and Anes Risks/Benef Reviewed Patient Risk: Intermediate Procedure Risk: Intermediate Anesthetic Plan Anesthetic Plan: GA Disposition: Standard PACU
--- NOTE | 2024-02-03 16:38 | W.PM.OPN ---
Operative Note Operative Note Date of Service: 02/03/24 Narrative: Preoperative diagnosis: [] Acute cholecystitis Postop diagnosis: [] The same Procedure [] laparoscopic cholecystectomy Surgeon: [] Donte Gameroom Technician: [] Sindy Type of Anesthesia: [] General Findings; corpulent abdomen. Edematous gallbladder with omental adhesions to it. Very intrahepatic gallbladder. Procedure; patient brought to the operating room, placed on operative table supine position, after an adequate level of general anesthesia was induced, the patient's abdomen was prepped and draped in usual sterile fashion. Using a supraumbilical curvilinear incision, Mantilla technique was used to insufflate the abdominal cavity to 15 mm of CO2. Upper midline and right subcostal ports were placed under direct laparoscopic view, and the patient placed in reverse Trendelenburg position, tilted to the left. Findings were as noted above. Gallbladder was grasped using laparoscopic graspers and retracted superiorly and laterally. Dense omental adhesions were swept off the gallbladder w where the hilum was approached. Cystic artery and cystic duct were each identified, circumferentially skeletonized, each traced directly into the gallbladder, and critical view obtained. Each was clipped proximally x2, distally x1, and transected . The gallbladder, which was very intrahepatic , was then cauterized from the gallbladder fossa using Bovie. Specimen was placed in an Endo-Catch bag, a retrieved through the umbilical port. Abdominal cavity was copiously irrigated, and secured hemostasis. All ports removed under direct laparoscopic view. Wounds were closed in the following manner; umbilical wound is fascia reapproximated using interrupted 0 Vicryl sutures. Skin wounds were closed using subcuticular 4-0 Vicryl sutures followed by Steri-Strips and sterile dressings. Wounds were infiltrated 0.5% Marcaine at completion. Sponge, needle, and instrument counts were reported correct. Patient tolerated the procedure well and emerged from anesthesia stable condition. EBL minimal
[2024-02-03] MEDS: HYDROmorphone HCl 0.5 MG/0.5 ML SYRINGE IVPUSH (16:43)
[2024-02-03] MEDS: 0.9 % Sodium Chloride Flush 3 ML SYRINGE IVFLUSH (23:43)
[2024-02-04] MEDS: HYDROmorphone HCl 1 MG/ML SYRINGE 0.5 MG IVPUSH ×2 (03:01→08:10)
[2024-02-04 04:00] VITALS: BP 111/62; PULSE 89; RESP 18; TEMP 36.8; O2SAT 94
[2024-02-04] MEDS: Omeprazole 20 MG CAPSULE.DR PO (05:31)
[2024-02-04] MEDS: oxyCODONE HCl Immed Release 5 MG TABLET PO (05:31)
[2024-02-04 07:58] VITALS: BP 125/83; PULSE 95; RESP 17; TEMP 36.6; O2SAT 92
[2024-02-04] MEDS: 0.9 % Sodium Chloride Flush 3 ML SYRINGE IVFLUSH (08:07)
--- NOTE | 2024-02-04 08:50 | PM.PNGS ---
Subjective Subjective Date of Service: 02/04/24 Interval history: Aside from incisional discomfort, patient was otherwise doing well. Advancing diet as tolerated, ambulating a bit. Physical Exam Vital Signs: Vital Signs: Last Vital Signs Temp 97.8 F 02/04/24 07:58 Pulse 95 02/04/24 07:58 Resp 17 02/04/24 07:58 BP 125/83 02/04/24 07:58 Pulse Ox 92 02/04/24 07:58 O2 Del Method Room Air 02/04/24 07:58 O2 Flow Rate 2 02/04/24 04:00 BMI result Body Mass Index 34.4 GI: Other: Abdomen is soft. All wounds clean dry and intact Objective Data Active Medications Acetaminophen (Acetaminophen 325 Mg Tablet) 650 mg PO Q6H PRN PRN Reason: Pain, Mild (Pain Scale 1-3) Budesonide (Budesonide 0.5 Mg/2 Ml Ampul.Neb) 1 mg INHALE RBID [facility] Last Admin: 02/04/24 08:25 Dose: Not Given Documented By: VIDAL Non-Admin Reason: Patient Refused Docusate Sodium (Docusate Sodium 100 Mg Capsule) 100 mg PO DAILY PRN PRN Reason: Constipation Fluticasone Propionate (Fluticasone Propionate Nasal 16 Gm Markle) 1 spray NOSTRIL-B DAILY [facility] Last Admin: 02/04/24 08:10 Dose: Not Given Documented By: KELLY Non-Admin Reason: Patient Refused Hydromorphone HCl (Hydromorphone Hcl 1 Mg/Ml Syringe) 0.5 mg IVPUSH Q4H PRN; Protocol PRN Reason: Pain, Severe (Pain Scale 7-10) Last Admin: 02/04/24 08:10 Dose: 0.5 mg Documented By: KELLY Lactated Ringer's (Lr) 1,000 mls @ 80 mls/hr IVCONT .[id number] [facility] Last Admin: 02/03/24 23:43 Dose: 80 mls/hr Documented By: ANTOIC Ketorolac Tromethamine (Ketorolac Tromethamine 30 Mg/Ml Vial) 30 mg IVPUSH Q6H PRN PRN Reason: abdominal pain Omeprazole (Omeprazole 20 Mg Capsule.) 20 mg PO DAILY@0630 [facility] Last Admin: 02/04/24 05:31 Dose: 20 mg Documented By: ANTOIC Ondansetron HCl (Ondansetron Hcl 4 Mg/2 Ml Vial) 4 mg IVPUSH Q8H PRN PRN Reason: Nausea and Vomiting Oxycodone HCl (Oxycodone Hcl Immed Release 5 Mg Tablet) 5 mg PO Q4H PRN PRN Reason: Pain, Moderate(Pain Scale 4-6) Last Admin: 02/04/24 05:31 Dose: 5 mg Documented By: ANTDC Sodium Chloride (0.9 % Sodium Chloride Flush 3 Ml Syringe) 3 ml IVFSH [facility] Last Admin: 02/04/24 08:07 Dose: 3 ml Documented By: MCDONOH Labs 02/02/24 09:54 02/02/24 09:54 Procedures Date of Service Date of Service: 02/04/24 Progress Note: A&P Assessment and plan (1) Status post laparoscopic cholecystectomy: Status: Acute Plan Ambulate, encourage incentive spirometry, out of bed, plan for DC later today. Time Spent With Patient Time: Total time managing care of this patient today ____ minutes. Quality Stroke Does the patient have a stroke diagnosis?: No VTE Prior VTE?: No VTE Risk Level:: Surgical - moderate VTE Device Contraindication: N/A - Device Ordered VTE Drug Contraindication: Treatment Not Indicated
--- NOTE | 2024-02-04 09:46 | PM.DS ---
DS: Providers Provider Date of Service: 02/04/24 Date of admission: 02/02/24 11:15 Date of discharge: 02/04/24 Primary care physician: Jose Barba MD Attending physician on admission: Sam Kent Attending physician on discharge: Sam Kent DS: Diagnosis Discharge Diagnosis (1) Status post laparoscopic cholecystectomy: Status: Acute DS: Summary Hospital Course Hospital Course: HPI AT ADMISSION: Chacorta Vásquez is a 43 year old male with PMH significant for esophageal stricture, eosinophilic esophagitis who presented to the ED with RUQ abd pain and nausea. He reports this current episode of pain began a week ago. It was sudden in onset and began in the epigastric/RUQ area and wrapped around his upper back. This was associated with nausea and lack of appetite. Due to the persistence of pain, he was seen at an outside facility ED on Wednesday for the pain. He was diagnosed with gallstones and a distended gallbladder at that time and was told it should be removed however was discharged to home on pain meds. He reports the pain had not resolved or improved at that time. He was seen yesterday in the office by Dr. Kent and was scheduled for an elective cholecystectomy next week. He however had severe persistence of pain and the pain medication was no longer helping. He therefore came to the [facility] ED for further treatment. CBC, BMP, LFTs were obtained which were all WNL. He denies previous episodes of similar pain. He denies fever, chills, vomiting, diarrhea. HOSPITAL COURSE: He was admitted to the surgical service for symptomatic biliary colic, early acute cholecystitis. He was added onto the OR schedule for the next day. On 02/03/24, a laparoscopic cholecystectomy was performed by Dr. Kent with complication. The patient tolerated the procedure well. He had an uncomplicated recovery course. On POD #1, he was tolerating a solid diet without nausea or vomiting. His incisional pain was well controlled on PO analgesics. He was ambulating without difficulty. His abdomen was benign with clean dressings. He felt ready for discharge. He was discharged to home on 02/04/24 in stable condition. He is to follow up in the office in 1 week. Status at Discharge Functional status at discharge: independent ambulation Overall status at discharge: patient is progressing back to baseline Time Attestation Discharge Coordination Time (in mins): 30 Quality: Safe Use of Opioids Does Pt have an Active Cancer Diagnosis on the Problem List?: No Quality: Stroke Does the patient have a stroke diagnosis?: No Physical Exam Vital Signs: Vital Signs: Last Vital Signs Temp 97.8 F 02/04/24 07:58 Pulse 95 02/04/24 07:58 Resp 17 02/04/24 07:58 BP 125/83 02/04/24 07:58 Pulse Ox 92 02/04/24 07:58 O2 Del Method Room Air 02/04/24 07:58 O2 Flow Rate 2 02/04/24 04:00 BMI result Body Mass Index 34.4 Const: General: comfortable, no acute distress and alert GI: Other: dressings intact Palpation (GI): Soft to palpation DS: Data Data Completed and Pending Completed studies during hospitalization [Text1]: 02/03/24 16:25 Surgical [PTH] Routine Gallbladder, cholecystectomy: Chronic cholecystitis; cholelithiasis Procedures Resection of Gallbladder, Percutaneous Endoscopic Approach (02/02/24) Discharge Plan Discharge Anticipated Discharge Date/Time: 02/04/24 16:43 Patient Disposition: Home, Self-Care Discharge Diagnosis: s/p laparoscopic cholecystectomy Referrals: Sam Kent MD [Physician] - 1 Week Jose Barba MD [Primary Care Provider] - 1 Week Discharge Medications: New hydrocodone-acetaminophen 5-325 mg tablet 1 tab PO Q4-6H PRN (Reason: pain) Qty: 30 0RF Rx Instructions: Partial Fill upon patient request. Continued esomeprazole magnesium [Nexium] 20 mg capsule,delayed release(DR/EC) 20 mg PO DAILY Qty: 90 1RF oxycodone-acetaminophen 5-325 mg tablet 1 tab PO Q6H PRN (Reason: Pain) ondansetron 4 mg tablet,disintegrating 4 mg PO Q8H PRN (Reason: Nausea And Vomiting) cetirizine [Zyrtec] 10 mg tablet 10 mg PO DAILY fluticasone propionate 50 mcg/actuation spray,suspension 1 spray intranasal DAILY budesonide 0.25 mg/2 mL suspension for nebulization 1 mg PO BID Qty: 180 1RF Discharge Orders: Discharge Order (Routine); Ordered 02/04/24 Ordered By: Sam Kent Diet: Advance to usual diet Activity on Discharge: No heavy lifting Stand Alone Forms: Patient Portal Discharge page Print Language: Cook Islander Activity Restrictions/Additional Instructions: Apply an ice pack for short intervals (20 minutes on, followed by at least 20 minutes off) for the first 2 days. Do not apply heat. Do not use creams, lotions, or topical antibiotics. These can cause infection or allergic reaction. Ok to shower 48 hours after your surgery. Remove dressings in 2 days and replace as needed. You have steri strips (small white cloth strips) covering your incision- these will fall off ~1 week. Follow up in office with Dr. Kent in 1 week. ([phone]) No heavy lifting (>10lbs) or strenuous activity! Call Your Doctor If: -Your temperature exceeds 101.5? F -You experience excessive pain or swelling -You have an unexpected reaction to medication -You have excessive bleeding -You experience continued vomiting/nausea -Your incision begins to separate -Your incision shows signs of infection such as increased redness, swelling, excessive pain, drainage (light blood or clear fluid is normal) or heat Care Plan Goals: Return to baseline health and resume normal activities following recovery period. Health Concerns: severe biliary colic Plan of Treatment: s/p laparoscopic cholecystectomy Assessment: doing well post op Discharge Date/Time: 02/04/24 11:46
--- NOTE | 2024-02-04 09:46 | MHC.CM.PN ---
PT TO DC HOME TODAY VIA PRIVATE TRANSPORT
--- NOTE | 2024-02-04 15:56 | HO.POSTANES ---
Post Anesthesia Evaluation Post Anesthesia Evaluation Date of Service: 02/04/24 Vital Signs: Vital Signs Temp Pulse Resp BP Pulse Ox O2 Del Method O2 Flow Rate 02/04/24 07:58 97.8 F 95 17 125/83 92 Room Air 02/04/24 04:00 98.2 F 89 18 111/62 94 Nasal Cannula 2 Anesthesia: General Endotracheal-GETA Mental Status: Awake Pain Control: Satisfactory Nausea/Vomiting: None Hydration: Adequate Anesthesia-Related Issues: No Anes. Related Issues
== END 2024-02-04 11:46 | disposition home or self-care (01) | DRG 419 ==
LOC: HO.ED 10:50 → HO.EDOVER 11:23 → HO.S3 02-03 05:16
PROVIDERS: Admitting Provider Physician Assistant Surgical; Emergency Provider Emergency Medicine; PCP Internal Medicine; Visit Provider Surgery
PROC: 0FT44ZZ Resection of Gallbladder, Percutaneous Endoscopic Approach (ICD-10-PCS; CPT 47562; principal; 2024-02-03 14:20)
DX: K81.0 Acute cholecystitis (principal); Z79.51 Long term (current) use of inhaled steroids; Z79.899 Other long term (current) drug therapy
CPT/HCPCS: 36415; 80048; 80076; 83690; 85025; 88304; 93005; 99285; J0131; J1170; J2250; J2270; J2704; J2795; J3010; J7120

== ENCOUNTER → 2024-02-02 10:23 | Outpatient (BNV) | payer OTHER, SELFPAY | PROVIDERS: Admitting Provider Physician Assistant Surgical; Emergency Provider Emergency Medicine; Visit Provider Internal Medicine | DX: Z01.818 Encounter for other preprocedural examination (principal) | CPT/HCPCS: 93010 ==

== ENCOUNTER → 2024-02-02 11:15 | Outpatient (BNV) | payer OTHER, SELFPAY | PROVIDERS: Admitting Provider Physician Assistant Surgical; Emergency Provider Emergency Medicine; Visit Provider Physician Assistant Surgical | DX: Z90.49 Acquired absence of other specified parts of digestive tract (principal) | CPT/HCPCS: 47562; 99024; 99222 ==

== ENCOUNTER 2024-02-14 08:45 | Outpatient (AMB) | payer OTHER, SELFPAY ==
--- NOTE | 2024-02-14 08:49 | A.OFFVIS_ITS ---
Intake Visit Reasons: s/p lap juan Intake Note: Patient here s/p lap juan. Reports incisions healing well. Patient c/o: soreness. Denies oozing, itch. Taking rx pain meds as needed. SX: 02-03-24. Representative Personal Service Required: No Accompanied by: Self / Same As Patient Allergies penicillin G Allergy (Mild, Verified 02/14/24 08:50) Rash HPI Comments Details: Patient presents for follow-up. Aside from an episode of nausea vomiting or few days ago he is otherwise doing well. He has had this before related to his eosinophilic esophagitis with stricture in the past The meantime, he is increasing his activity level. He is incisional discomfort is improving. [facility] Medical History (Updated 02/09/24 @ 00:02 by Afia Damon) Eosinophilic esophagitis Elevated cholesterol Malaria Surgical History (Updated 02/11/24 @ 08:03 by WATSON Amaya) Hx laparoscopic cholecystectomy (02/03/24) History of esophagogastroduodenoscopy (EGD) H/O colonoscopy Hx of tonsillectomy H/O endoscopy Family History Father Heart attack High blood pressure Mother S/P triple vessel bypass Diabetes Brother Eosinophilic esophagitis Social History Household Members: Spouse Housing: House Do you presently have visiting nurse or other home services: No Alcohol intake: current Alcohol intake frequency: holidays/special occasions only Alcohol type: beer Patient Tobacco Use Status: Never used Tobacco e-Cigarette/Vaping Use: Never Used Second Hand Smoke Exposure: No service: No (ACTIVE DUTY) Current occupational status: employed Current occupation: [employer] Current occupational exposures/hazards: No Cognitive needs: No Hearing needs: No Vision needs: No Physical Exam Eyes Other: Anicteric GI Other: Abdomen mildly corpulent, soft. All incisions clean dry and intact healing very well Assessment & Plan Assessment & Plan (1) Status post laparoscopic cholecystectomy: Code(s): Z90.49 - Acquired absence of other specified parts of digestive tract Category: Medical Plan Surgical perspective, patient was doing very well. He should slowly but steadily increase his activity level. No for light duty will be provided for work. 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 All questions answered. Coding Level of Care Code Global (52484) Diagnoses Status post laparoscopic cholecystectomy Z90.49
== END 2024-02-14 08:56 | disposition home or self-care (01) ==
PROVIDERS: PCP Internal Medicine; Visit Provider Surgery
DX: Z90.49 Acquired absence of other specified parts of digestive tract (principal)
CPT/HCPCS: 99024

== ENCOUNTER → 2024-02-14 08:45 | Outpatient (BNVA) | payer OTHER, SELFPAY | PROVIDERS: PCP Internal Medicine; Visit Provider Surgery | DX: Z90.49 Acquired absence of other specified parts of digestive tract (principal) | CPT/HCPCS: 99212 ==

== ENCOUNTER 2024-02-15 08:17 | Outpatient (AMB) | payer OTHER, SELFPAY ==
--- NOTE | 2024-02-15 08:35 | MHC.PC.OV ---
Vital Signs 02/15/24 08:36 Height 6 ft Weight 246 lb 4 oz BMI 33.4 BP 90/64 Blood Pressure Location Lt brachial Position Sitting Pulse 70 Pulse Source Pulse Oximeter Pulse Oximetry (%) 98 Oxygen Delivery Method Room Air Intake Visit Reasons: BMI. Intake Note: Patient is here to follow up on BMI, Obesity. 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 HPI Details 43-year-old male presents to the office to discuss his chronic medical conditions. Patient recently underwent a lap cholecystectomy. He has fully recovered from the procedure. Patient is active [employer]. The requires for him to have his body fat less than 20%. He believes it is around 30%. He would like to lose weight and wants to discuss his options. Patient is very active and exercises regularly. The demands of the keep him on his feet all the time. [facility] Medical History (Updated 02/15/24 @ 09:13 by Jose Barba MD) Obesity (BMI 30.0-34.9) Eosinophilic esophagitis Elevated cholesterol Malaria Surgical History Hx laparoscopic cholecystectomy (02/03/24) History of esophagogastroduodenoscopy (EGD) H/O colonoscopy Hx of tonsillectomy H/O endoscopy Family History Father Heart attack High blood pressure Mother S/P triple vessel bypass Diabetes Brother Eosinophilic esophagitis Social History Household Members: Spouse Housing: House Do you presently have visiting nurse or other home services: No Alcohol intake: current Alcohol intake frequency: holidays/special occasions only Alcohol type: beer Patient Tobacco Use Status: Never used Tobacco e-Cigarette/Vaping Use: Never Used Second Hand Smoke Exposure: No service: No (ACTIVE DUTY) Current occupational status: employed Current occupation: [employer] Current occupational exposures/hazards: No Cognitive needs: No Hearing needs: No Vision needs: No Questionnaire Thrive Questionnaire Date Thrive assessed: 02/02/24 NATY-7 AMB Questionnaire NATY-7 Date NATY - 7 assessed: 01/19/24 Source: Developed by Drs. Yair Joshi, Ada Bartlett, Fernie Arroyo and colleagues, with an educational khadar from [facility]. Physical exam (Primary Care) Vital Signs: Last Vital Signs Pulse 70 02/15/24 08:36 BP 90/64 02/15/24 08:36 Pulse Ox 98 02/15/24 08:36 Oxygen Delivery Method Room Air 02/15/24 08:36 BMI result Body Mass Index 33.4 Tobacco/Smoking Status: Tobacco use Status Tobacco use date assessed 02/15/24 02/15/24 08:40 Patient Tobacco Use Status Never used Tobacco 02/15/24 08:40 e-Cigarette/Vaping Use Never Used 02/15/24 08:40 Thrive Assessment: Date of Thrive Assessment Date Thrive assessed 02/02/24 02/15/24 08:40 Const General: cooperative and healthy appearing Nutritional Appearance: well nourished Orientation/consciousness: patient oriented x3 Limitations: no limitations HENMT Head: Yes normal to inspection Eyes General: appearance normal, both eyes and all related structures Neck Neck: Yes normal visual inspection Chest Chest palpation & inspection: normal palpation of entire chest wall Resp Effort & Inspection: normal respiratory effort Neuro General: patient oriented x3 Assessment and Plan Assessment & Plan (1) Obesity (BMI 30.0-34.9): Code(s): E66.9 - Obesity, unspecified Plan: A nutrition consult will be obtained for the patient. 20 minutes was spent discussing the dietary options for the patient. Patient was made to understand that for him to lose weight, diet place a very important role. Avoid sugars and simple carbs Coding Level of Care Code Est Pt Level 4 (64686) Complex EM visit Add On G2211 Diagnoses Obesity (BMI 30.0-34.9) E66.9
[2024-02-15 08:36] VITALS: BP 90/64; PULSE 70; O2SAT 98; BMI 33.4
== END 2024-02-15 10:48 | disposition home or self-care (01) ==
PROVIDERS: PCP Internal Medicine; Visit Provider Internal Medicine
DX: E66.9 Obesity, unspecified (principal); Z68.33 Body mass index [BMI] 33.0-33.9, adult
CPT/HCPCS: 99214; G2211

== ENCOUNTER 2024-02-24 11:18 | Outpatient (AMB) | payer OTHER, SELFPAY ==
--- NOTE | 2024-02-24 11:31 | A.OFFVIS_ITS ---
VS Expanded 02/24/24 11:33 02/24/24 11:42 Height 6 ft 6 ft Weight 250 lb 0.067 oz 250 lb BMI 33.9 33.9 Intake Visit Reasons: Obesity/CONFIRMED Allergies penicillin G Allergy (Mild, Verified 02/15/24 09:10) Rash Nutrition Presentation Details: Pt presents for MNT for obesity. Pt was referred by Dr. Barba. Pt reports typically skipping Breakfast Lunch varies: meal replacement/leftover home made meals dinner pasta/poultry/veg, water propel water , Jewels ice tea zero or diet soda or regular ETOH: 1-2 weekend food frequency fruits: 0/day vegetables: 3x/wk milk/dairy: with cereal only 0-2x/wk fish: not including Goal wt 220 lbs BS Monitoring Most Recent Diabetes Results: Creatinine 0.98 mg/dL (0.5-1.4) 02/02/24 Blood Urea Nitrogen 12 mg/dL (9-16) 02/02/24 Sodium 139 mmol/L (135-145) 02/02/24 Potassium 3.9 mmol/L (3.3-5.1) 02/02/24 Chloride 109 mmol/L (96-108) H 02/02/24 Carbon Dioxide 25 mmol/L (22-29) 02/02/24 Calcium 9.6 mg/dL (8.4-10.2) 02/02/24 AST 21 U/L (5-37) 02/02/24 ALT 35 U/L (0-40) 02/02/24 Total Protein 7.4 g/dL (6.5-8.0) 02/02/24 Albumin 4.6 g/dL (3.5-5.0) 02/02/24 [id number].Jeor Equation Height: 6 ft Weight: 250 lb Resting Metabolic Rate: 2069.29 Calculated Activity Level: Mild Activity Calories Needed to Maintain Weight: 2845.27 Diagnosis Nutrition problem #1: food nutri know defi As related to (etiology) #1: diagnosis As evidenced by (sign/symptom) #1: high BMI (33.9on 02/2024) Monitoring/Goals Nutrition problem monitoring: total PRO intake and weight Nutrition goal/outcome: wt loss 5lbs in 2 months Outcome progress: verbalized understanding Learning/Education Readiness to learn: good [facility] Medical History (Updated 02/24/24 @ 11:57 by Marian Yoon, RD, LDN) Obesity (BMI 30.0-34.9) Eosinophilic esophagitis Elevated cholesterol Malaria Surgical History (Updated 02/22/24 @ 00:02 by Afia Damon) Hx laparoscopic cholecystectomy (02/03/24) History of esophagogastroduodenoscopy (EGD) H/O colonoscopy Hx of tonsillectomy H/O endoscopy Family History Father Heart attack High blood pressure Mother S/P triple vessel bypass Diabetes Brother Eosinophilic esophagitis Social History Household Members: Spouse Housing: House Do you presently have visiting nurse or other home services: No Alcohol intake: current Alcohol intake frequency: holidays/special occasions only Alcohol type: beer Patient Tobacco Use Status: Never used Tobacco e-Cigarette/Vaping Use: Never Used Second Hand Smoke Exposure: No service: No (ACTIVE DUTY) Current occupational status: employed Current occupation: [employer] Current occupational exposures/hazards: No Cognitive needs: No Hearing needs: No Vision needs: No Assessment & Plan Assessment & Plan (1) Obesity (BMI 30.0-34.9): Comment: 113 g prot/d Code(s): E66.9 - Obesity, unspecified Category: Medical Plan: Wt: 113 Kg ( 02/2024 ) Est kcal needs as per MSJ: 2800 (40% carb, 30% protein/fat) Est fluid needs as per 25-30 ml/d: 3400 ml/d Est prot per day as per 1 g/kg bw: 113 Recommend fiber intake : 8-10 g per day and gradually increase to 25-28 g per day for women and 35-38 g for men or as tolerated Recommend sodium intake per day : less than 2000 mg Educated patient on: ( R = reviewed V = verbalizes understanding N/R = needs review N/A = not applicable * Food sources of carbohydrate, adequate serving sizes and its role in various health conditions: R * Differences between complex carbohydrates a simple carbohydrates, role of fiber in diet: R * Lean protein sources of foods: R * Differences between types of fats and role in diet (mono on saturated fat fatty acids, saturated fatty acids, trans fats): R basic * Food sources of sodium in salt and healthy modifications for heart health in kidney health: R * Vitamins and minerals: R V N/R * Healthy plate method concept: R * Physical activity: Benefits a precaution: R * Patient Instructions: * Follow healthy plate method, reducing on total carbs to 90 g or less per meal * Choose a fruit as snack, aim at having at least 2 fruits/day * keep hydrated by having water, with meals and snacks Coding Level of Care Code Nutr Indiv Intake (47715) Diagnoses Obesity (BMI 30.0-34.9) E66.9 Time Spent (min) 30
[2024-02-24 11:33] VITALS: BMI 33.9
[2024-02-24 11:42] VITALS: BMI 33.9
== END 2024-02-24 12:03 | disposition home or self-care (01) ==
PROVIDERS: PCP Internal Medicine; Visit Provider Dietitian, Registered
DX: E66.9 Obesity, unspecified (principal)

== ENCOUNTER → 2024-02-24 11:18 | Outpatient (BNVA) | payer OTHER, SELFPAY | PROVIDERS: PCP Internal Medicine; Visit Provider Dietitian, Registered | DX: E66.9 Obesity, unspecified (principal); Z68.33 Body mass index [BMI] 33.0-33.9, adult | CPT/HCPCS: 97802 ==

== ENCOUNTER 2024-07-11 06:27 | Day surgery (SDC) | payer OTHER, SELFPAY ==
[2024-07-11 06:57] VITALS: BMI 35.3
[2024-07-11 07:02] VITALS: BP 132/93; PULSE 65; RESP 16; TEMP 36.6; O2SAT 97
--- NOTE | 2024-07-11 07:20 | HO.ANESPROP2 ---
Documented by User: Shandra Flynn NP 07/10/24 09:28 HPI - Anesthesia Eval Consult details Narrative: 43yo M for Upper Endoscopy with Balloon Dilitation with savary dilator [facility] Active Problems Active Problems: All Active Problems Obesity (BMI 30.0-34.9) (Acute) Status post laparoscopic cholecystectomy (Acute) Benign esophageal stricture (Acute) Dysphagia (Acute) Daytime sleepiness (Acute) Loud snoring (Acute) Hypercholesteremia (Acute) Eosinophilic esophagitis (Acute) Past Medical History Medical History (Updated 02/24/24 @ 11:[address], LDN) Obesity (BMI 30.0-34.9) Eosinophilic esophagitis Elevated cholesterol Malaria Family History Family History Father Heart attack High blood pressure Mother S/P triple vessel bypass Diabetes Brother Eosinophilic esophagitis Family history of problems with anesthesia: No Surgical History Surgical History Hx laparoscopic cholecystectomy (02/03/24) History of esophagogastroduodenoscopy (EGD) H/O colonoscopy Hx of tonsillectomy H/O endoscopy History of Problems with Anesthesia: No Social History Social History Household Members: Spouse Housing: House Are you a primary career portals teacher to a significant other at home: No Do you presently have visiting nurse or other home services: No Alcohol intake: current Alcohol intake frequency: a few times a month Alcohol type: beer Patient Tobacco Use Status: Never used Tobacco e-Cigarette/Vaping Use: Never Used Second Hand Smoke Exposure: No Use of substances other than those prescribed or required for medical reasons: No Have you been hit, kicked, punched, or otherwise hurt by someone within the past year? If so, by whom?: No Are you DNR?: No Advance Directives: No Advance Directives Information Provided: No Advance Directives on File: No Recently lost weight without trying: No How much weight loss: Not applicable Eating poorly because of decreased appetite: No Nutrition screen score: 0 Nutrition Risks: No Nutritional Risk Poor oral hygiene: No service: No (ACTIVE DUTY) Current occupational status: employed Current occupation: [employer] Current occupational exposures/hazards: No Cognitive needs: No Hearing needs: No Vision needs: No Meds Allergies Allergy/AdvReac Type Severity Reaction Status Date / Time penicillin G Allergy Mild Rash Verified 07/11/24 06:53 Home Medications ?Medication ?Instructions ?Recorded ?Confirmed ?Last Taken ?Type cetirizine 10 mg tablet (Zyrtec) 10 mg PO DAILY allergy symptoms 02/02/24 07/11/24 Unknown History fluticasone propionate 50 1 spray intranasal DAILY 02/02/24 07/11/24 Unknown History mcg/actuation nasal spray,suspension Assessment and Plan Assessment Anesthesia Assessment: Chart Reviewed Final Anesthetic Review Family History of Problems with Anesthesia: No History of Problems with Anesthesia: No Documented by User: Stefania Cortez DO 07/11/24 07:31 [facility] Past Medical History Medical History (Updated 02/24/24 @ 11:[address], LDN) Obesity (BMI 30.0-34.9) Eosinophilic esophagitis Elevated cholesterol Malaria Family History Family History Father Heart attack High blood pressure Mother S/P triple vessel bypass Diabetes Brother Eosinophilic esophagitis Family history of problems with anesthesia: No Surgical History Surgical History Hx laparoscopic cholecystectomy (02/03/24) History of esophagogastroduodenoscopy (EGD) H/O colonoscopy Hx of tonsillectomy H/O endoscopy History of Problems with Anesthesia: No Social History Social History Household Members: Spouse Housing: House Are you a primary career portals teacher to a significant other at home: No Do you presently have visiting nurse or other home services: No Alcohol intake: current Alcohol intake frequency: a few times a month Alcohol type: beer Patient Tobacco Use Status: Never used Tobacco e-Cigarette/Vaping Use: Never Used Second Hand Smoke Exposure: No Use of substances other than those prescribed or required for medical reasons: No Have you been hit, kicked, punched, or otherwise hurt by someone within the past year? If so, by whom?: No Are you DNR?: No Advance Directives: No Advance Directives Information Provided: No Advance Directives on File: No Recently lost weight without trying: No How much weight loss: Not applicable Eating poorly because of decreased appetite: No Nutrition screen score: 0 Nutrition Risks: No Nutritional Risk Poor oral hygiene: No service: No (ACTIVE DUTY) Current occupational status: employed Current occupation: [employer] Current occupational exposures/hazards: No Cognitive needs: No Hearing needs: No Vision needs: No Meds Allergies Allergy/AdvReac Type Severity Reaction Status Date / Time penicillin G Allergy Mild Rash Verified 07/11/24 06:53 Home Medications ?Medication ?Instructions ?Recorded ?Confirmed ?Last Taken ?Type cetirizine 10 mg tablet (Zyrtec) 10 mg PO DAILY allergy symptoms 02/02/24 07/11/24 Unknown History fluticasone propionate 50 1 spray intranasal DAILY 02/02/24 07/11/24 Unknown History mcg/actuation nasal spray,suspension Exam Exam Date and Time: 07/11/24 0720 Height,Weight and Vital Signs: Height 6 ft Weight 118.206 kg Vital Signs Temperature 97.9 F 07/11/24 07:02 Pulse Rate 65 07/11/24 07:02 Respiratory Rate 16 07/11/24 07:02 Blood Pressure 132/93 H 07/11/24 07:02 Pulse Oximetry 97 07/11/24 07:02 Oxygen Delivery Method Room Air 07/11/24 07:02 Temperature 97.9 F 07/11/24 07:02 Pulse Rate 65 07/11/24 07:02 Respiratory Rate 16 07/11/24 07:02 Blood Pressure 132/93 H 07/11/24 07:02 Pulse Oximetry 97 07/11/24 07:02 Oxygen Delivery Method Room Air 07/11/24 07:02 Airway Mallampati Class: II TM Dist: >3cm Neck ROM: Full Loose/Missing/Broken Teeth: No (patient denies anyloose or broken teeth) Heart: S1S2 Lungs: CTAB Assessment and Plan Assessment Anesthesia Assessment: Anesthesia Plan Discussed and Chart Reviewed Final Anesthetic Review Family History of Problems with Anesthesia: No History of Problems with Anesthesia: No NPO: Yes ASA Class: II Final Preanesthetic Review: No Changes in Pt Med Stat, Meds/Allgs Chart Reviewed, Consent Obtained/Reviewed and Anes Risks/Benef Reviewed Patient Risk: Low Procedure Risk: Low Anesthetic Plan Anesthetic Plan: MAC: and Agree w/ Assess. and Plan Disposition: Standard PACU
[2024-07-11] MEDS: Lactated Ringers 1,000 ML 100 ML IVCONT (07:43)
--- NOTE | 2024-07-11 07:49 | MHC.SHP ---
Pre-Procedural Eval Section A - 24 Hr Update-Section A only Date of Service: 07/11/24 Section B - Complete if H&P > 30 days Chief Complaint: Esophageal obstruction,Eosinophilic esophagitis Details of Present Illness: Eosinophilic esophagitis Elevated cholesterol Malaria Surgical History History of esophagogastroduodenoscopy (EGD) H/O colonoscopy Hx of tonsillectomy H/O endoscopy Allergies: Allergies Allergy/AdvReac Type Severity Reaction Status Date / Time penicillin G Allergy Mild Rash Verified 02/15/24 09:10 Review of Systems Review of Systems Comment: Ten point ROS negative Exam Exam Comment: Gen appear: No acute distress HEENT: no icterus Chest: No overt resp distress Abd: soft, nontender, nondistended Psych: Stable affect, answering questions appropriately Neuro: A/Ox3 noted to move all extremities spontaneously Ext: no peripheral edema Plan Diagnosis/Plan: Unchanged I have reviewed the history and physical and performed a pertinent physical examination on my patient. No changes have occurred unless specified. Time Spent With Patient Time: Total time managing care of this patient today ____ minutes.
--- NOTE | 2024-07-11 07:50 | P.OP_ITS ---
Operative Note Operative Note Date of Service: 12/28/23 Narrative: Procedure: Esophagogastroduodenoscopy Endoscopist: Lorraine Alamo MD Indication: EoE with stricture Anesthesia Provider: Shayy Marshall CRNA Anesthesia Type: MAC Instrument: Olympus [id number] ?? EGD Procedure:?? The procedure, indications, preparation and potential complications were reviewed with the patient, who indicated understanding and gave written informed consent to proceed. A physical exam was performed. The endoscope was introduced through the mouth, and advanced to the second part of duodenum. The mucosa was carefully examined on slow withdrawal of the endoscope. The patient tolerated the procedure well. There were no immediate complications.? ? EGD Findings:? * Esophagus:? Normal mucosa was noted in proximal esophagus. A single small linear ulceration was noted in at the GE junction. The Z line was at 40 cm and irregular up to 38 cm. There was a small hiatal hernia with diaphragmatic pinch at 42 cm. Middle and lower esophagus forceps biopsies were obtained to monitor eosinophil count/response to current therapy and to r/o Sweet's. * Stomach:? Erythema, erosions and scant heme noted in the fundus. Cold forceps biopsies were obtained for histology. Retroflexion was performed in the cardia. * Duodenum:? Normal mucosa was noted in the whole of the examined duodenum. ? EGD Impressions:? * Grade A esophagitis (biopsy) * Normal stomach (biopsy) * Normal duodenum ?? Recommendations:?? * Follow biopsy results. Our office will call or send a letter with results within 7-10 days. * Cont budesonide 1 mg BID. * Increase nexium 20 to BID x 8 weeks and then once daily * Repeat EGD PRN for return of dysphagia Above has been reviewed with the patient.
[2024-07-11 08:11] VITALS: BP 142/86; PULSE 73; RESP 16; TEMP 36.5; O2SAT 96
[2024-07-11 08:26] VITALS: BP 142/93; PULSE 57; RESP 18; TEMP 36.3; O2SAT 94
== END 2024-07-11 09:21 | disposition home or self-care (01) ==
PROVIDERS: PCP Internal Medicine; Visit Provider Internal Medicine
PROC: (CPT 43239; principal; 2024-07-11 07:40)
DX: K20.0 Eosinophilic esophagitis (principal); K20.90 Esophagitis, unspecified without bleeding; K29.70 Gastritis, unspecified, without bleeding; K44.9 Diaphragmatic hernia without obstruction or gangrene; K22.9 Disease of esophagus, unspecified; K22.2 Esophageal obstruction; E78.00 Pure hypercholesterolemia, unspecified; K90.49 Malabsorption due to intolerance, not elsewhere classified; Z79.899 Other long term (current) drug therapy
CPT/HCPCS: 43239; 88305; 88313; 88342; J1100; J1596; J2003; J2704

== ENCOUNTER → 2024-07-11 06:27 | Outpatient (BNV) | payer OTHER, SELFPAY | PROVIDERS: PCP Internal Medicine; Visit Provider Internal Medicine | DX: K20.0 Eosinophilic esophagitis (principal); K22.2 Esophageal obstruction | CPT/HCPCS: 43239 ==

== ENCOUNTER 2024-07-19 08:18 | Outpatient (AMB) | payer OTHER, SELFPAY ==
--- NOTE | 2024-07-19 08:29 | MHC.PC.OV ---
Vital Signs 07/19/24 08:31 Height 6 ft Weight 257 lb 8 oz BMI 34.9 BP 120/80 Blood Pressure Location Lt brachial Position Sitting Pulse 66 Pulse Source Pulse Oximeter Pulse Oximetry (%) 95 Oxygen Delivery Method Room Air Intake Visit Reasons: L knee popped Intake Note: Patient is here to follow up on left knee popped with pain. Secret Service Agent Required: No Engine Manager: Not Required per policy Accompanied by: Self / Same As Patient Allergies penicillin G Allergy (Mild, Verified 07/19/24 08:55) Rash Medication List - Last Reconciled 07/19/24 by Jose Barba MD budesonide (Eohilia) 10 mL PO BID cetirizine (Zyrtec) 10 mg PO DAILY dupilumab 300 mg (2 mL) subcut QWEEK 90 days esomeprazole magnesium (Nexium) 20 mg PO BID fluticasone propionate 50 mcg/actuation 1 spray intranasal DAILY Tobacco use date assessed: 07/19/24 Dental Screening Dental Screen Date: 01/19/24 HPI L knee popped HPI Details 43-year-old male presents to the office for a sick visit. Patient injured his left knee while running 2 weeks ago. He is able to walk and bear weight, but discomfort symptoms persist. [facility] Medical History (Updated 02/24/24 @ 11:[address], LDN) Obesity (BMI 30.0-34.9) Eosinophilic esophagitis Elevated cholesterol Malaria Surgical History Hx laparoscopic cholecystectomy (02/03/24) History of esophagogastroduodenoscopy (EGD) H/O colonoscopy Hx of tonsillectomy H/O endoscopy Family History Father Heart attack High blood pressure Mother S/P triple vessel bypass Diabetes Brother Eosinophilic esophagitis Social History Household Members: Spouse Housing: House Are you a primary behavioral health care coordinator to a significant other at home: No Do you presently have visiting nurse or other home services: No Alcohol intake: current Alcohol intake frequency: a few times a month Alcohol type: beer Patient Tobacco Use Status: Never used Tobacco e-Cigarette/Vaping Use: Never Used Second Hand Smoke Exposure: No service: Yes (ACTIVE DUTY) Current occupational status: employed Current occupation: [employer] Current occupational exposures/hazards: No Cognitive needs: No Hearing needs: No Vision needs: No Questionnaire Thrive Questionnaire Date Thrive assessed: 02/02/24 AUDIT C Alcohol Use Questionnaire (AUDIT-C) 2. How many drinks containing alcohol do you have on a typical day when you are drinking?: 1 or 2 3. How often do you have six or more drinks on one occasion?: Less than monthly Total Score: 1 NATY-7 AMB Questionnaire NATY-7 Date NATY - 7 assessed: 01/19/24 Source: Developed by Drs. Yair Joshi, Ada Bartlett, Fernie Arroyo and colleagues, with an educational khadar from [employer]. Physical exam (Primary Care) Vital Signs: Last Vital Signs Pulse 66 07/19/24 08:31 BP 120/80 07/19/24 08:31 Pulse Ox 95 07/19/24 08:31 Oxygen Delivery Method Room Air 07/19/24 08:31 BMI result Body Mass Index 34.9 Tobacco/Smoking Status: Tobacco use Status Tobacco use date assessed 07/19/24 07/19/24 08:31 Patient Tobacco Use Status Never used Tobacco 07/19/24 08:31 e-Cigarette/Vaping Use Never Used 07/19/24 08:31 Thrive Assessment: Date of Thrive Assessment Date Thrive assessed 02/02/24 07/19/24 08:31 Extrem Other: Left knee: No joint line tenderness. Full range of motion. Abduction and adduction movement at the knee elicit no discomfort. Office Procedures Flu Questionnaire Does the patient have a severe egg allergy?: No Does the patient have severe life threatening allergies?: No Does the patient have a fever or illness today?: No Has the patient ever had Guillain-Essex Syndrome?: No Has the patient ever had any past reaction to a flu shot?: No Immunizations Fluarix Triv [id number] (PF) 45 mcg (15 mcg x 3)/0.5 mL IM syringe Performing Provider: Jose Barba MD [facility] Administered by: WATSON Nunez on 07/19/24 08:41 Dose Route Admin Location Dispensed Lot Number Expiration Date NDC Director Shopper Marketing 0.5 mL IM Right Deltoid 0.5 mL [id number] 03/05/25 09538-745-33 [employer] VIS Given Date VIS Provided VIS Publication Date 07/19/24 Single Vaccine 21 Eligibility Eligibility Date Funding Source Not [facility] Eligible 07/19/24 Private Coding Level of Care Code Est Pt Level 4 (62358) Complex EM visit Add On G2211 Diagnoses Sprain of left knee S83.92XA Assessment & Plan Assessment & Plan (1) Sprain of left knee: Code(s): S83.92XA - Sprain of unspecified site of left knee, initial encounter Plan: X-ray of the knee ordered. Patient was provided with a splint. Meloxicam called in. If symptoms do not improve to follow-up here. Orders: Orders Influenza [id number] Immunization Today Z23 - Encounter for immunization
[2024-07-19 08:31] VITALS: BP 120/80; PULSE 66; O2SAT 95; BMI 34.9
== END 2024-07-19 11:01 | disposition home or self-care (01) ==
PROVIDERS: PCP Internal Medicine; Visit Provider Internal Medicine
DX: S83.92XA Sprain of unspecified site of left knee, initial encounter (principal); Z23 Encounter for immunization

== ENCOUNTER → 2024-07-19 08:18 | Outpatient (BNVA) | payer OTHER, SELFPAY | PROVIDERS: PCP Internal Medicine; Visit Provider Internal Medicine | DX: Z23 Encounter for immunization (principal); S83.92XA Sprain of unspecified site of left knee, initial encounter | CPT/HCPCS: 90471; 90656; 99212 ==

== ENCOUNTER 2024-07-25 09:43 | Outpatient (REF) | payer OTHER, SELFPAY | END 2024-07-25 09:44 | disposition home or self-care (01) | LOC: HO.XRAY 09:43 | PROVIDERS: PCP Internal Medicine; Visit Provider Internal Medicine | DX: S83.92XA Sprain of unspecified site of left knee, initial encounter (principal) | CPT/HCPCS: 73562 ==

== ENCOUNTER 2024-08-02 07:52 | Outpatient (AMB) | payer OTHER, SELFPAY ==
--- NOTE | 2024-08-02 08:05 | MHC.PC.OV ---
Vital Signs 08/02/24 08:06 Height 6 ft Weight 254 lb 8 oz BMI 34.5 BP 110/74 Blood Pressure Location Lt brachial Position Sitting Pulse 71 Pulse Source Pulse Oximeter Pulse Oximetry (%) 96 Intake Visit Reasons: 2 week f/u Intake Note: Patient is here to follow up on sprain of left knee. Clinical Cytogeneticist Scientist Required: No Candy Separator Hard: Not Required per policy Accompanied by: Self / Same As Patient Allergies penicillin G Allergy (Mild, Verified 08/02/24 08:05) Rash Tobacco use date assessed: 08/02/24 Dental Screening Dental Screen Date: 01/19/24 [facility] Medical History (Updated 02/24/24 @ 11:57 by Marian Yoon, RD, LDN) Obesity (BMI 30.0-34.9) Eosinophilic esophagitis Elevated cholesterol Malaria Surgical History Hx laparoscopic cholecystectomy (02/03/24) History of esophagogastroduodenoscopy (EGD) H/O colonoscopy Hx of tonsillectomy H/O endoscopy Family History Father Heart attack High blood pressure Mother S/P triple vessel bypass Diabetes Brother Eosinophilic esophagitis Social History Household Members: Spouse Housing: House Are you a primary dialysis patient care technician to a significant other at home: No Do you presently have visiting nurse or other home services: No Alcohol intake: current Alcohol intake frequency: a few times a month Alcohol type: beer Patient Tobacco Use Status: Never used Tobacco e-Cigarette/Vaping Use: Never Used Second Hand Smoke Exposure: No service: Yes (ACTIVE DUTY) Current occupational status: employed Current occupation: [employer] Current occupational exposures/hazards: No Cognitive needs: No Hearing needs: No Vision needs: No Questionnaire Thrive Questionnaire Date Thrive assessed: 02/02/24 NATY-7 AMB Questionnaire NATY-7 Date NATY - 7 assessed: 01/19/24 Source: Developed by Drs. Yair Joshi, Ada Bartlett, Fernie Arroyo and colleagues, with an educational khadar from [employer]. Physical exam (Primary Care) Vital Signs: Last Vital Signs Pulse 71 08/02/24 08:06 BP 110/74 08/02/24 08:06 Pulse Ox 96 08/02/24 08:06 BMI result Body Mass Index 34.5 Tobacco/Smoking Status: Tobacco use Status Tobacco use date assessed 08/02/24 08/02/24 08:10 Patient Tobacco Use Status Never used Tobacco 08/02/24 08:10 e-Cigarette/Vaping Use Never Used 08/02/24 08:10 Thrive Assessment: Date of Thrive Assessment Date Thrive assessed 02/02/24 08/02/24 08:10 Coding Level of Care Code Est Pt Level 3 (85930) Complex EM visit Add On G2211 Diagnoses Sprain of left knee S83.92XA Assessment & Plan Assessment & Plan (1) Sprain of left knee: Code(s): S83.92XA - Sprain of unspecified site of left knee, initial encounter Plan: See below Scribe Plan - Not visible on output: History of Present Illness The patient is a 43-year-old male presenting with knee pain. The patient's primary concern is sharp pain experienced upon bending the left knee. This discomfort began some time after a previous consultation where an X-ray was obtained and returned normal. The patient describes a pattern where the knee is pain-free during walking but experiences shooting pain when bent for any period, such as when seated or driving. He notes that extending the knee alleviates discomfort. The pain has worsened over time. The patient is currently utilizing a brace and was prescribed anti-inflammatory medication, specifically Meloxicam, which he has almost completed. No limp is reported, and there are no issues climbing or descending stairs. Past assessments have indicated no joint line tenderness, and a functional range of motion was recently confirmed. Social History - The patient is employed in the . Review of Systems - Musculoskeletal: Reports knee pain when bent; Denies pain while walking or during stair navigation. Physical Exam - Musculoskeletal- Examination of the left knee revealed no joint line tenderness. Full range of motion was observed without discomfort when lying down. Results - Tests and Imaging: X-ray of the knee returned normal findings. Plan - Knee Ligament Injury: I will continue the patient on Meloxicam for another two weeks. Physical therapy is recommended, focusing on stretching exercises. I advise the patient to reassess his condition by August 20, and if there is no improvement, an MRI will be ordered. Adjustment of anti-inflammatory medication will be contingent upon symptoms and physical therapy results. Patient was informed and verbally consented to the use of an ambient scribe for clinic note documentation during this visit. Discussion Notes I discussed with the patient the likelihood of a knee ligament injury, noting nothing is ruptured or broken based on the X-ray and clinical findings. I recommended continuing Meloxicam and trying physical therapy, emphasizing the role of stretching exercises. We discussed the potential need for an MRI if symptoms persist, with a self-assessment plan for August 20. I provided a note for the patient's employment needs, clarifying physical activity limitations until the reassessment date. Patient Instructions - Continue taking Meloxicam as prescribed for the next two weeks. - Attend physical therapy sessions focusing on knee stretching exercises. - Avoid activities that exacerbate the knee pain, keeping the knee extended when possible. - Reassess knee condition by August 20 and seek follow-up if there is no improvement. - Use the employment note provided for any necessary work accommodations regarding physical activities.
[2024-08-02 08:06] VITALS: BP 110/74; PULSE 71; O2SAT 96; BMI 34.5
== END 2024-08-02 08:25 | disposition home or self-care (01) ==
PROVIDERS: PCP Internal Medicine; Visit Provider Internal Medicine
DX: S83.92XA Sprain of unspecified site of left knee, initial encounter (principal)

== ENCOUNTER → 2024-08-02 07:52 | Outpatient (BNVA) | payer OTHER, SELFPAY | PROVIDERS: PCP Internal Medicine; Visit Provider Internal Medicine | DX: S83.92XA Sprain of unspecified site of left knee, initial encounter (principal) | CPT/HCPCS: 99212 ==

== ENCOUNTER 2024-10-02 14:58 | Outpatient (AMB) | payer OTHER, SELFPAY ==
--- NOTE | 2024-10-02 15:07 | A.OFFVIS_ITS ---
Vital Signs 10/02/24 15:09 Height 6 ft Weight 256 lb BMI 34.7 BP 124/81 Blood Pressure Location Lt brachial Position Sitting Pulse 65 Intake Visit Reasons: f/u EGD Intake Note: Patient follow up for EGD results. Patient denies any GI issues for today visit. Financial Foundations Associate Required: No Accompanied by: Self / Same As Patient Allergies penicillin G Allergy (Mild, Verified 10/02/24 15:07) Rash HPI Comments Details: 42 y.o M with PMH of EoE who is here for follow up. Recap: Established care 04/2023. Works for [employer] so relocates frequently. Was initially diagnosed in 2007 in [place] however has had symptoms most of his life. Brother also has EoE. Prior to being seen here, most recent care was in [place] where he had last EGD in 2020. Has needed dilation x3. Hx + for 4-5 visits to the ER for food obstruction most recently in 2021 in [facility]. Last colo 2017 - hemorrhoids. Addition of budesonide 1mg BID with limited benefit - see EGD 10/2023. Upped to 2 mg BID with improvement - see egd EGD 07/08/2023 (baseline egd): Mucosa biopsy consistent with EoE 75EOS. Balloon dilation 15-18 mm. EGD 10/07/2023 (on budesonide 1 mg BID + omeprazole once daily): Mucosa biopsy consistent with EoE 100EOS. Balloon dilation 15-18. EGD 12/28/2023 (on budesonide 2 mg BID + nexium once daily): Normal mucosa in the proximal esophagus 6EOS. Grade C esophagitis in lower esophagus around 24EOS. Balloon dilation from 18-20 mm. EGD 07/11/2024 (on budesonide 2 mg BID + nexium BID): Grade A esophagitis. NO dilation needed. Prox esophagus: 50 EOS with microabscesses. Lower esophagus: 50 EOS. No h pylori on gastric bx. 10/02/24: Currently on Dupixent that was started mid Nov by the patient. Also continuing with Nexium twice a day. Eohilia has been tapered off. Reports no issues with swallowing, heartburn, regurgitation, abdominal pain. Has to move to [place] in the next couple of months, and hoping to have a relook EGD before he moves. [facility] Medical History (Updated 02/24/24 @ 11:57 by Marian Yoon, RD, LDN) Obesity (BMI 30.0-34.9) Eosinophilic esophagitis Elevated cholesterol Malaria Surgical History Hx laparoscopic cholecystectomy (02/03/24) History of esophagogastroduodenoscopy (EGD) H/O colonoscopy Hx of tonsillectomy H/O endoscopy Family History Father Heart attack High blood pressure Mother S/P triple vessel bypass Diabetes Brother Eosinophilic esophagitis Social History Household Members: Spouse Housing: House Are you a primary director of managed care to a significant other at home: No Do you presently have visiting nurse or other home services: No Alcohol intake: current Alcohol intake frequency: a few times a month Alcohol type: beer Patient Tobacco Use Status: Never used Tobacco e-Cigarette/Vaping Use: Never Used Second Hand Smoke Exposure: No service: Yes (ACTIVE DUTY) Current occupational status: employed Current occupation: [id number] Current occupational exposures/hazards: No Cognitive needs: No Hearing needs: No Vision needs: No Review of Systems Const All systems reviewed & are unremarkable except as noted in HPI and below Physical Exam Vital Signs: Last Vital Signs Pulse 65 10/02/24 15:09 BP 124/81 10/02/24 15:09 BMI result Body Mass Index 34.7 No apparent distress Nonicteric Abdomen soft, nondistended Alert and oriented x3, normal gait Assessment & Plan Assessment & Plan (1) Eosinophilic esophagitis: Code(s): K20.0 - Eosinophilic esophagitis Category: Medical Plan Clinically has promising response to Dupixent + PPI combination. Will geno for a relook EGD in 3 months from startign dupixent, i.e late Oct. Plan: - Cont dupixent 300 mg qweekly - nexium 20 bid - EGD to be booked Pt will be moving to [place] in the next couple of months - aware to seek local GI. In the meantime, will facilitate cont'd med refills to avoid lapse in medical therapy. Coding Level of Care Code Est Pt Level 4 (48865) Complex EM visit Add On G2211 Diagnoses Eosinophilic esophagitis K20.0
[2024-10-02 15:09] VITALS: BP 124/81; PULSE 65; BMI 34.7
--- OUTSIDE RECORDS SUMMARY | 2024-10-02 19:14 | XMS_ITS | Continuity of Care Document ---
Author Name [facility] Organization [facility] Care Team Providers Care Engagement Quality Consultant Name Role Phone [facility] Unavailable Unavailable Problems Combined list of problems from Department of Defense and Veterans Affairs facilities. It does not include entries that were removed or entered in error. Problem Status Onset Date Problem Type Date of Resolution Comments Source dermatitis Inactive Condition DoD bright red blood per rectum Active Condition DoD visit for: administrative purpose Inactive Condition DoD esophagitis eosinophilic Active Condition DoD conditions influencing health status Active Condition DoD visit for: screening exam traumatic brain injury Inactive Condition DoD difficulty swallowing (dysphagia) Active Condition DoD visit for: services physical Inactive Condition DoD visit for: ears / hearing exam Active Condition [facility] Inquiry And Counseling: Medication Admin And Compliance Inactive Condition [facility] visit for: postsurgical exam Active Condition [facility] postsurgical state of eye and adnexa Active Condition 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 Medication Details Route Status Patient Instructions Prescription Expires Prescription Number Last Dispense Date Ordering Provider Order Date Order Qty Source BUDESONIDE (budesonide ), 0.25MG/2ML, AMPUL-NEB, INHALATION, AMNEAL PHARMACE, 2 ml AMPUL Cancele d [id number] : 2023 0 Pharmac y Data Transac tion Service Facilit y BUDESONIDE (budesonide ), 0.25MG/2ML, AMPUL-NEB, INHALATION, AMNEAL PHARMACE, 2 ml AMPUL Cancele d [id number] : 2023 0 Pharmac y Data Transac tion Service Facilit y BUDESONIDE (budesonide ), 0.25MG/2ML, AMPUL-NEB, INHALATION, AMNEAL PHARMACE, 2 ml AMPUL Cancele d [id number] : 2023 0 Pharmac y Data Transac tion Service Facilit y BUDESONIDE (budesonide ), 0.25MG/2ML, AMPUL-NEB, INHALATION, AMNEAL PHARMACE, 2 ml AMPUL Active [id number] 2023 60 Pharmac y Data Transac tion Service Facilit y BUDESONIDE (budesonide ), 0.25MG/2ML, AMPUL-NEB, INHALATION, NEPHRON MATT, 2 ml AMPUL Cancele d [id number] : 2023 0 Pharmac y Data Transac tion Service Facilit y BUDESONIDE (budesonide ), 0.25MG/2ML, AMPUL-NEB, INHALATION, NEPHRON MATT, 2 ml AMPUL Active [id number] 2023 60 Pharmac y Data Transac tion Service Facilit y BUDESONIDE (budesonide ), 0.25MG/2ML, AMPUL-NEB, INHALATION, NEPHRON MATT, 2 ml AMPUL Cancele d [id number] : 2022 0 Pharmac y Data Transac tion Service Facilit y BUDESONIDE (budesonide ), 0.25MG/2ML, AMPUL-NEB, INHALATION, NEPHRON MATT, 2 ml AMPUL Cancele d [id number] : 2023 0 Pharmac y Data Transac tion Service Facilit y BUDESONIDE (budesonide ), 0.25MG/2ML, AMPUL-NEB, INHALATION, SANDOZ, 2 ml AMPUL Active [id number] 4 2023 180 Pharmac y Data Transac tion Service Facilit y BUDESONIDE (budesonide ), 0.25MG/2ML, AMPUL-NEB, INHALATION, SANDOZ, 2 ml AMPUL Cancele d [id number] : 2023 0 Pharmac y Data Transac tion Service Facilit y BUDESONIDE (budesonide ), 0.25MG/2ML, AMPUL-NEB, INHALATION, SANDOZ, 2 ml AMPUL Cancele d [id number] : 2023 0 Pharmac y Data Transac tion Service Facilit y CEPHALEXIN (CEPHALEXIN MONOHYDRATE ), 500MG, CAPSULE, ORAL, LUPIN PHARMACEU, 500 ea. BOTTLE Active [id number] 2023 20 Pharmac y Data Transac tion Service Facilit y CEPHALEXIN (CEPHALEXIN MONOHYDRATE ), 500MG, CAPSULE, ORAL, TEVA [place], 500 ea. BOTTLE Active [id number] 2023 20 Pharmac y Data Transac tion Service Facilit y CETIRIZINE HCL (cetirizine HCl), 10 MG, TABLET, ORAL, 'S LAB, 500 ea. BOTTLE Active [id number] 2023 90 Pharmac y Data Transac tion Service Facilit y CLINDAMYCIN HCL (CLINDAMYCI N HCL), 300MG, CAPSULE, ORAL, AUROBINDO PHARM, 100 ea. BOTTLE Active [id number] 2023 21 Pharmac y Data Transac tion Service Facilit y CLINDAMYCIN PHOSPHATE (clindamyci n phosphate), 1 %, LOTION, TOPICAL, ENCUBE ETHICALS, 60 ml BOTTLE Active [id number] 2023 60 Pharmac y Data Transac tion Service Facilit y CLINDAMYCIN PHOSPHATE (clindamyci n phosphate), 1 %, LOTION, TOPICAL, ENCUBE ETHICALS, 60 ml BOTTLE Active [id number] 2023 60 Pharmac y Data Transac tion Service Facilit y EOHILIA (budesonide ), 2 MG/10 ML, SUSP PACKT, ORAL, TAKEDA PHARMACE, 10 ml PACKET Cancele d [id number] : 2023 0 Pharmac y Data Transac tion Service Facilit y ESOMEPRAZOL E MAGNESIUM (esomeprazo le magnesium), 20 MG, CAPSULE DR, ORAL, AUROBINDO PHARM, 30 ea. BOTTLE Active [id number] 4 2023 90 Pharmac y Data Transac tion Service Facilit y ESOMEPRAZOL E MAGNESIUM (esomeprazo le magnesium), 20 MG, CAPSULE DR, ORAL, [employer], 30 ea. BOTTLE Cancele d [id number] : 2023 0 Pharmac y Data Transac tion Service Facilit y FLUTICASONE PROPIONATE (FLUTICASON E PROPIONATE) , 50MCG, SPRAY SUSP, NASAL, APOTEX MATT, 16 g AER W/ADAP Active [id number] 2023 16 Pharmac y Data Transac tion Service Facilit y FLUTICASONE PROPIONATE (FLUTICASON E PROPIONATE) , 50MCG, SPRAY SUSP, NASAL, SARAN LABS., 16 g AER W/ADAP Cancele d [id number] : 2023 0 Pharmac y Data Transac tion Service Facilit y FLUTICASONE PROPIONATE (FLUTICASON E PROPIONATE) , 50MCG, SPRAY SUSP, NASAL, SARAN LABS., 16 g AER W/ADAP Cancele d [id number] : 2023 0 Pharmac y Data Transac tion Service Facilit y HYDROCODONE -ACETAMINOP HEN (HYDROCODON E/ACETAMINO PHEN), 5MG-325MG, TABLET, ORAL, MALLINCKROD T PH, 500 ea. BOTTLE Active [id number] 2023 30 Pharmac y Data Transac tion Service Facilit y LIDOCAINE HCL VISCOUS (LIDOCAINE HCL), 20MG/ML, SOLUTION, MUCOUS MEM, SARAN LABS., 100 ml BOTTLE Active [id number] 2023 80 Pharmac y Data Transac tion Service Facilit y METHYLPREDN ISOLONE (methylpred nisolone), 4 MG, TAB DS PK, ORAL, [employer], 21 ea. DOSE-PACK Active [id number] 2023 21 Pharmac y Data Transac tion Service Facilit y OMEPRAZOLE (OMEPRAZOLE ), 40 MG, CAPSULE DR, ORAL, ZYDUS PHARMACEU, 1000 ea. BOTTLE Cancele d [id number] : 2022 0 Pharmac y Data Transac tion Service Facilit y ONDANSETRON ODT (ONDANSETRO N), 4 MG, TAB RAPDIS, ORAL, CITRON PHARMA L, 30 ea. BLIST PACK Active [id number] 2023 12 Pharmac y Data Transac tion Service Facilit y ONDANSETRON ODT (ONDANSETRO N), 4 MG, TAB RAPDIS, ORAL, CITRON PHARMA L, 30 ea. BLIST PACK Active [id number] 2023 12 Pharmac y Data Transac tion Service Facilit y OXYCODONE-A CETAMINOPHE N (OXYCODONE HCL/ACETAMI NOPHEN), 5MG-325MG, TABLET, ORAL, MALLINKRT PHARM, 500 ea. BOTTLE Active [id number] 2023 12 Pharmac y Data Transac tion Service Facilit y OXYCODONE-A CETAMINOPHE N (OXYCODONE HCL/ACETAMI NOPHEN), 5MG-325MG, TABLET, ORAL, MALLINKRT PHARM, 500 ea. BOTTLE Active [id number] 2023 12 Pharmac y Data Transac tion Service Facilit y PANTOPRAZOL E SODIUM (PANTOPRAZO LE SODIUM), 40 MG, TABLET DR, ORAL, MYLAN, 90 ea. BOTTLE Cancele d [id number] : 2023 0 Pharmac y Data Transac tion Service Facilit y PANTOPRAZOL E SODIUM (PANTOPRAZO LE SODIUM), 40 MG, TABLET DR, ORAL, MYLAN, 90 ea. BOTTLE Cancele d [id number] : 2023 0 Pharmac y Data Transac tion Service Facilit y PANTOPRAZOL E SODIUM (PANTOPRAZO LE SODIUM), 40 MG, TABLET DR, ORAL, MYLAN, 90 ea. BOTTLE Active [id number] 2023 90 Pharmac y Data Transac tion Service Facilit y PREDNISONE (prednisone ), 20 MG, TABLET, ORAL, NOVITIUM/AN I PH, 500 ea. BOTTLE Active [id number] 2023 9 Pharmac y Data Transac tion Service Facilit y PULMICORT (BUDESONIDE ), 0.25MG/2ML, AMPUL-NEB, INHALATION, ASTRAZENECA , 2 ml BLIST PACK Cancele d [id number] : 2023 0 Pharmac y Data Transac tion Service Facilit y SULFAMETHOX AZOLE-TRIME THOPRIM (SULFAMETHO XAZOLE/TRIM ETHOPRIM), 800-160MG, TABLET, ORAL, AUROBINDO PHARM, 500 ea. BOTTLE Active [id number] 2023 14 Pharmac y Data Transac tion Service Facilit y Allergies, Adverse Reactions, Alerts Combined list of allergies from Department of Defense and Veterans Affairs facilities. It does not include entries that were removed or entered in error. Substance Category Reaction Severity Reaction type Status Date Reported Comments Source PENICILLIN G Drug allergy (disorder) Unknown active [address] [place] [address] PENICILLINS Drug allergy (disorder) Unknown active [address] [place] [address] Immunizations Combined list of available immunizations from the Department of Defense and Veterans Affairs facilities. Immunization Series Date Given Administered By Site Reaction Lot Number CVX Code Drug Cloth Examiner Machine Status Comments Source Influenza, injectable, MDCK, preservative free, quadrivalent 2020 KATHERINE LOPEZ () Not Given Influenza , injectabl e, MDCK, preservat robinson free, quadrival ent [facility] SARS-COV-2 (COVID-19) vaccine, mRNA, spike protein, LNP, preservative free, 100 mcg or 50 mcg dose 2 2020 MALLIKA RAMÍREZ [id number] 207 [employer] (MOD) complet ed SARS-COV- 2 (COVID-19 ) vaccine, mRNA, spike protein, LNP, preservat robinson free, 100 mcg or 50 mcg dose DoD SARS-COV-2 (COVID-19) vaccine, mRNA, spike protein, LNP, preservative free, 100 mcg or 50 mcg dose 1 2020 REFUGIO OSBORNE [id number] 207 Natero, Xolve. (MOD) complet ed SARS-COV- 2 (COVID-19 ) vaccine, mRNA, spike protein, LNP, preservat robinson free, 100 mcg or 50 mcg dose DoD Influenza, injectable, quadrivalent, preservative free 0 2019 UNK 150 (TRN) complet ed Influenza , injectabl e, quadrival ent, preservat robinson free DoD Influenza, injectable, quadrivalent, preservative free 0 2018 UNK 150 (TRN) complet ed Influenza , injectabl e, quadrival ent, preservat robinson free DoD measles and rubella virus vaccine 0 2017 04 () Not Given measles and rubella virus vaccine DoD Influenza, injectable, quadrivalent, preservative free 1 2017 ERNST MENDOZA [id number] 150 Seqirus (SEQ) complet ed Influenza , injectabl e, quadrival ent, preservat robinson free DoD Influenza, injectable, quadrivalent, preservative free 0 2017 [id number] 150 [employer] (SEQ) comple t ed Influenza , injectabl e, quadrival ent, preservat robinson free DoD Influenza, injectable, MDCK, preservative free, quadrivalent 2016 JOVANNI ROJO () Not Given Influenza , injectabl e, MDCK, preservat robinson free, quadrival ent DoD Influenza, injectable, quadrivalent, preservative free 0 2016 UNK 150 Seq[employer] (SEQ) comple t ed Influenza , injectabl e, quadrival ent, preservat robinson free DoD Influenza, injectable, quadrivalent, preservative free 0 2015 [id number] 150 Se[employer]irus (SEQ) comple t ed Influenza , injectabl e, quadrival ent, preservat robinson free DoD tetanus toxoid, reduced diphtheria toxoid, and acellular pertu is vaccine, adsorbed 0 2015 UNK 115 Unknown (UNK) comple t ed tetanus toxoid, reduced diphtheri a toxoid, and acellular pertussis vaccine, adsorbed DoD seasonal influenza, intradermal, preservative free 0 2014 UNK 144 Unknown (UNK) comple t ed seasonal influenza , intraderm al, preservat robinson free DoD influenza virus vaccine, split virus (incl. purified surface antigen)-reti red CODE 1 2013 HERNANDEZ STEVENSGuillermo Ochoa [id number] 15 CS [employer] (CSL) complet ed influenza virus vaccine, split virus (incl. purified surface antigen)- retired CODE DoD Influenza, seasonal, injectable, preservative free 0 2013 140 (MVX) complet ed Influenza , seasonal, injectabl e, preservat robinson free DoD seasonal influenza, intradermal, preservative free 0 2013 UNK 144 Unknown (UNK) comple t ed seasonal influenza , intraderm al, preservat robinson free DoD influenza virus vaccine, live, attenuated, for intranasal use [address] [facility] [employer] (CS) complet ed influenza virus vaccine, live, attenuate d, for intranasa l use DoD anthrax vaccine 3 2011 UNK 24 (EBS) complet ed anthrax vaccine DoD typhoid Vi capsular polysaccharid e vaccine 2 2011 UNK 101 Sarah-Aureliot (WAL) complet ed typhoid Vi capsular polysacch aride vaccine DoD Influenza, seasonal, injectable, preservative free [id number] [facility] [employer] (CS) complet ed Influenza , seasonal, injectabl e, preservat robinson free DoD anthrax vaccine 2 2010 UNK 24 (EBS) complet ed anthrax vaccine DoD meningococcal oligosacchari de (groups A, C, Y and W-135) diphtheria toxoid conjugate vaccine (MCV4O) 0 2010 UNK 136 [employer] (AVB) complet ed meningoco ccal oligosacc haride (groups A, C, Y and W-135) diphtheri a toxoid conjugate vaccine (MCV4O) DoD influenza virus vaccine, split virus (incl. purified surface antigen)-reti red CODE 0 2009 UNK 15 Unknown (UNK) comple t ed influenza virus vaccine, split virus (incl. purified surface antigen)- retired CODE DoD typhoid Vi capsular polysaccharid e vaccine 2 2009 UNK 101 Wyeth-Ayerst (WAL) complet ed typhoid Vi capsular polysacch aride vaccine DoD Novel influenza-H1N 1-09, injectable 0 2009 [id number] 127 (AG) complet ed Novel influenza -R1G8-54, injectabl e DoD influenza virus vaccine, live, attenuated, for intranasal use 0 2008 UNK 111 Unknown (UNK) comple t ed influenza virus vaccine, live, attenuate d, for intranasa l use DoD influenza virus vaccine, live, attenuated, for intranasal use 0 2008 UNK 111 Unknown (UNK) comple t ed influenza virus vaccine, live, attenuate d, for intranasa l use DoD vaccinia (smallpox) vaccine 0 2008 [id number] 75 (SHAWN) complet ed vaccinia (smallpox ) vaccine DoD anthrax vaccine 2 2008 UNK 24 [employer] Kaufman (MIP) complet ed anthrax vaccine DoD anthrax vaccine 2 2008 [id number] 24 [employer] Bam (MIP) complet ed anthrax vaccine DoD anthrax vaccine 1 2008 [id number] 24 [employer] Kaufman (MIP) complet ed anthrax vaccine DoD influenza virus vaccine, live, attenuated, for intranasal use 0 2007 [id number] [employer] (MED) complet ed influenza virus vaccine, live, attenuate d, for intranasa l use DoD typhoid Vi capsular polysaccharid e vaccine 1 2007 [id number] 101 Sanofi Pasteur (PMC) complet ed typhoid Vi capsular polysacch aride vaccine DoD hepatitis A and hepatitis B vaccine 3 2007 [id number] [id number] 104 SmithKline (SKB) complet ed hepatitis A and hepatitis B vaccine DoD influenza virus vaccine, split virus (incl. purified surface antigen)-reti red CODE 0 2007 [id number] 0AA 15 (TRN) complet ed influenza virus vaccine, split virus (incl. purified surface antigen)- retired CODE DoD measles, mumps and rubella virus vaccine 0 2006 UNK 03 Merck (MSD) complet ed measles, mumps and rubella virus vaccine DoD poliovirus vaccine, inactivated 0 2006 UNK 10 Med[employer]ayyar[employer] (MED) complet ed polioviru s vaccine, inactivat ed DoD yellow fever vaccine 0 2006 UNK 37 [employer] Kaufman (MIP) complet ed yellow fever vaccine DoD hepatitis A and hepatitis B vaccine 2 2006 UNK 104 Unknown (UNK) comple t ed hepatitis A and hepatitis B vaccine DoD hepatitis A and hepatitis B vaccine 1 2006 UNK 104 Unknown (UNK) comple t ed hepatitis A and hepatitis B vaccine DoD meningococcal polysaccharid e (groups A, C, Y and W-135) diphtheria toxoid conjugate vaccine (MCV4P) 0 2006 UNK 114 Unknown (UNK) comple t ed meningoco ccal polysacch aride (groups A, C, Y and W-135) diphtheri a toxoid conjugate vaccine (MCV4P) DoD tetanus toxoid, reduced diphtheria toxoid, and acellular pertu is vaccine, adsorbed 0 2006 UNK 115 Unknown (UNK) comple t ed tetanus toxoid, reduced diphtheri a toxoid, and acellular pertussis vaccine, adsorbed DoD Encounters Combined list of: 1) Encounters from Department of Veterans Affairs facilities going back up to thelast 18 months. 2) Encounters from the Department of Defense facilities going back up to 280 months. Location Location Details Encounter Type Encounter Number Reason For Visit Attending Provider ADM Date DC Date Status Disposition Source [facility] [id number] TYREE CHEN 04/28 Released w/o Limitations [facility]) [facility] OUT[facility] [id number] KEENAN HOLDER 04/28 Released w/o Limitations [facility](MCR D [facility] BAS[facility] OUTPATIENT [id number] SORE THROAT ROB TREVINO 05/10 Released w/o Limitations [facility] D Third BN BAS) [facility] [place]) OUTPATIENT [id number] LEFT KNEE PROBLEM S BAN CULLEN 10/17 Released w/o Limitations [facility]([facility] C Primary Care) [facility]([place] [facility] [facility]) OUTPATIENT [id number] mercy SCHNEIDERKYLER ASHLEY 12/20 Released w/o Limitations [facility]( Mario [facility]) [facility](Id ytn [place] [facility]) OUTPATIENT [id number] tanvir ROSANNE LUU Chito 01/08 Released w/o Limitations [facility]( [facility] [place] [facility]) [facility](Op tometry Had[facility] Bld[facility] 15) OUTPATIENT [id number] prk screeni ng...pr ior sachin MARSHALLT VY A 02/06 Released w/o Limitations [facility]( Optomet ry [facility] 15) [facility](Re fractive Surgery Clinic) OUTPATIENT [id number] 3 mth post op KATINA ESTEBAN 08/22 Released w/o Limitations [facility]( Refract robinson Surgery Clinic) [facility](He aring Conserv-B 65) OUTPATIENT [id number] BEATRIS BOOGIE 11/06 Released w/o Limitations [facility]( Hearing Conserv -B65) [facility](Op tometry [facility] 15) OUTPATIENT [id number] HOSEA Gomez 11/07 Released w/o Limitations [facility]( Optomet ry [facility] 15) [facility](Ga stroenter ology Clinic) OUTPATIENT [id number] JEANA Mayers 11/19 Released w/o Limitations [facility]( [facility] n[facility] gy [facility]) [facility](De [facility]-AN AM) OUTPATIENT [id number] MARYA GARCIA 08/07 Released w/o Limitations [facility]( [facility] DIRECT TO [facility] FROM OTHER THAN ER OR APU [id number] JONAS Lantigua, JAVIER JOSHUA 12/06 DISCHARGED TO [facility](Ca se Managemen t Managed Care) OUTPATIENT [id number] Transit ion Care Note ISIDRO PHIPPS Don 12/09 Released w/o Limitations [facility]( Case Managem ent Managed Care) [facility](He aring Conserv-B 65) OUTPATIENT [id number] BEATRIS BOOGIE 02/12 Released w/o Limitations [facility]( Hearing Conserv -B65) [facility](He aring Conserv-B 65) OUTPATIENT [id number] Annual Audiogr am BEATRIS BOOGIE 12/27 Released w/o Limitations [facility]( Hearing Conserv -B65) [facility](He aring Conserv-B 65) OUTPATIENT [id number] Annual Audiogr am BEATRIS BOOGIE 12/28 Released w/o Limitations [facility]( Hearing Conserv -B65) [facility](Op tometry [facility] B[facility] 15) OUTPATIENT [id number] JOSH Atkinson 08/16 Released w/o Limitations [facility]( Optomet ry [facility] 15) [employer](87 Cell ([facility])) OUTPATIENT [id number] Notes Entered by: CHUCKIE CASTRO 20 Jul 2013 0823 ------- ------- ------- ------- -- PHA OLIMPIA Nice 07/20 Released w/o Limitations [employer](8 7 Cell ([facility])) [employer](87 [facility] Team Blue) OUTPATIENT [id number] [facility] pt 2 GORDON LEBLANC 07/25 Released w/o Limitations [employer](8 7 [facility] Team Blue) [facility](87 [facility] 5) TELE CONSULT [id number] Notes Entered by: Parag HUDSON 26 Oct 2013 0805 ------- ------- ------- ------- -- Maria E [place] was dropped off Oct 19 need maria e [place] for PHA alexi/GORDON Coyne 10/26 [facility](8 7 [facility] 5) [facility] Medical [facility]([address] [place] [address]) OUTPATIENT [id number] GORDON Julian 10/30 Released w/o Limitations [facility](8 7 [facility] 5) [facility]([address] [place] [address]) TELE CONSULT [id number] Notes Entered by: DENIS CONDE 09 Nov 2013 1619 ------- ------- ------- ------- -- VVC/ref erral// GORDON Fleming 11/09 [facility](8 7 [facility] 5) [facility] Medical [facility](87 [facility] Team White) TELE CONSULT [id number] Notes Entered by: Jacky SPARKS 17 Apr 2014 0808 ------- ------- ------- ------- -- GORDON Boyer 04/17 [facility] Medical [facility]([address] [place] [address] Team White) [facility] F02A DD) OUTPATIENT [id number] Notes Entered by: ADRI STEVENS 06 Jul 2014 1514 ------- ------- ------- ------- -- FLU VACCINE ADRI STEVENS 07/06 Released w/o Limitations [facility]( [facility] F02A DDC) [facility] [id number] Notes Entered by: MANDEEP ROMERO 16 Jun 2018 0810 ------- ------- ------- ------- -- flu 019 MANDEEP ROMERO 06/16 Released w/o Limitations [facility]( Immuniz ation [place]) [facility] Treatment [facility] [place] [address]([facility] RR Readiness [facility]) OUTPATIENT [id number] 1 TCON/PH A [address] [place] [address] [phone] MARLEY LEONARD 04/09 Released w/o Limitations [facility] [place] [address](V IPR[facility] Readine Clinic) [facility](Im [facility] [place]) OUTPATIENT [id number] 0 COVID vaccine #1 REFUGIO OSBORNE 11/29 Released w/o Limitations [facility]( [facility] [place]) [facility] [place]) [place] [id number] 4 COVID VACCINE SKYLAR LANDAVERDE 12/27 Released w/o Limitations [facility]( Imm [facility] [place]) [place] [address]([facility] RR Readiness [facility]) OUTPATIENT [id number] 2 T-CON PHA [facility] ME LIN HANSEN 05/21 Released w/o Limitations [facility] [place] [place] [address](V IPRR Readine Clinic) Procedures Combined list of: 1) Procedures from Department of Veterans Affairs facilities going back up to thelast 18 months, not all VA non-surgical procedures are included; 2) All procedures from the Department of Defense facilities. Procedure Procedure Type Code Date Perfomer Comments Sour e SCREENING TEST, PURE TONE, AIR ONLY 007 DoD FITTING OF SPECTACLES, EXCEPT FOR APHAKIA; MONOFOCAL 007 DoD ONLINE ASSESS &MANAG SERV PROVIDE,A QUAL NONPHYS HCP TO AN ESTABLISHED PAT/GUARDIAN,NOT ORIGINAT FRM RELAT ASSESS &MANAG SERV PROVIDE W/IN THE PREV 7 DAYS,USE THE INTERNET/SIMILAR [employer] COMM NETWORK 014 DoD TELE ASSESS & MGT SRV PROV QUAL NONPHYS HLTH CARE PRO TO EST PAT,PARENT,GUARD NOT ORIG REL ASSESS & MGT SRV PROV W/IN PREV 7 DAYS NOR LEAD ASSESS & MGT SRV/PX W/IN NXT 24 HR/SOON APT;5-10 MIN MED DIS 014 DoD TELE ASSESS & MGT SRV PROV QUAL NONPHYS HLTH CARE PRO TO EST PAT,PARENT,GUARD NOT ORIG REL ASSESS & MGT SRV PROV W/IN PREV 7 DAYS NOR LEAD ASSESS & MGT SRV/PX W/IN NXT 24 HR/SOON APT;5-10 MIN MED DIS 014 DoD PURE TONE AUDIOMETRY (THRESHOLD); AIR ONLY DoD OPHTHALMOLOGICAL SERVICES: MEDICAL EXAMINATION AND EVALUATION, WITH INITIATION OR CONTINUATION OF DIAGNOSTIC AND TREATMENT PROGRAM; INTERMEDIATE, ESTABLISHED PATIENT DoD PURE TONE AUDIOMETRY (THRESHOLD); AIR ONLY DoD PHYS/OTH QUALIFIED HEALTH MACHINE SIGN WRITER QUALIFIED,EDUCATION ,TRAIN,LICENSURE/RE GULATION (WHEN APPLICABLE) EDUC SER RENDERED TO PATS IN A GRP SETTING (EG,,OBESIT Y,OR DIABETIC INSTRUCT) 012 DoD PURE TONE AUDIOMETRY (THRESHOLD); AIR ONLY 011 DoD INFUSION, NORMAL SALINE SOLUTION, 250 CC DoD ELECTROCARDIOGRAM, ROUTINE ECG WITH AT LEAST 12 LEADS; TRACING ONLY, WITHOUT INTERPRETATION AND REPORT DoD UNLISTED SPECIAL SERVICE, PROCEDURE OR REPORT [facility] OPHTHALMOLOGICAL SERVICES: MEDICAL EXAMINATION AND EVALUATION WITH INITIATION OF DIAGNOSTIC AND TREATMENT PROGRAM; INTERMEDIATE, NEW PATIENT DoD PURE TONE AUDIOMETRY (THRESHOLD); AIR ONLY DoD SERIAL TONOMETRY (SEP PROC) WITH MULT CHARITY OF INTRAOCULAR PRESSURE OVER EXTENDED TIME PERIOD W/ INTERP & REPORT, SAME DAY (EG, DIURNAL CURVE OR MEDICAL TX OF ACUTE ELEVATION OF INTRAOCULAR PRESSURE) 008 [facility] POSTOPERATIVE FOLLOW-UP VISIT, NORMALLY INCLUDED IN THE SURGICAL PACKAGE, INDICATE THAT EVALUATION & MANAGEMENT SERVICE WAS PERFORMED DURING A POSTOPERATIVE PERIOD REASON RELATED ORIGINAL PROCEDURE [facility] OPHTHALMOLOGICAL SERVICES: MEDICAL EXAMINATION AND EVALUATION, WITH INITIATION OR CONTINUATION OF DIAGNOSTIC AND TREATMENT PROGRAM; COMPREHENSIVE, ESTABLISHED PATIENT, 1 OR MORE VISITS [facility] OPHTHALMOLOGICAL SERVICES: MEDICAL EXAMINATION AND EVALUATION, WITH INITIATION OR CONTINUATION OF DIAGNOSTIC AND TREATMENT PROGRAM; COMPREHENSIVE, ESTABLISHED PATIENT, 1 OR MORE VISITS 008 [facility] OPHTHALMOLOGICAL SERVICES: MEDICAL EXAMINATION AND EVALUATION, WITH INITIATION OR CONTINUATION OF DIAGNOSTIC AND TREATMENT PROGRAM; COMPREHENSIVE, ESTABLISHED PATIENT, 1 OR MORE VISITS [facility] PHOTOREFRACTIVE KERATECTOMY (PRK) [facility] PHYS/OTH QUALIFIED HEALTH MACHINE SIGN WRITER QUALIFIED,EDUCATION ,TRAIN,LICENSURE/RE GULATION (WHEN APPLICABLE) EDUC SER RENDERED TO PATS IN A GRP SETTING (EG,,OBESIT Y,OR DIABETIC INSTRUCT) [facility] COMPUTERIZED CORNEAL TOPOGRAPHY, UNILATERAL OR BILATERAL, WITH INTERPRETATION AND REPORT [facility] FITTING OF SPECTACLES, EXCEPT FOR APHAKIA; MONOFOCAL [facility] SEVERE ACUTE RESPIRATORY SYNDROME CORONAVIRUS 2 (SARSCOV-2) (CORONAVIRUS DISEASE [COVID-19]) VACCINE, MRNALNP, SPIKE PROTEIN, PRESERVATIVE FREE, 100 MCG/0.5ML DOSAGE, FOR INTRAMUSCULAR USE [facility] SEVERE ACUTE RESPIRATORY SYNDROME CORONAVIRUS 2 (SARSCOV-2) (CORONAVIRUS DISEASE [COVID-19]) VACCINE, MRNALNP, SPIKE PROTEIN, PRESERVATIVE FREE, 100 MCG/0.5ML DOSAGE, FOR INTRAMUSCULAR USE [facility] INFLUENZA VIRUS VACCINE, QUADRIVALENT (IIV4), SPLIT VIRUS, PRESERVATIVE FREE, 0.5 ML DOSAGE, FOR INTRAMUSCULAR USE [facility] INFLUENZA VIRUS VACCINE, TRIVALENT (IIV3), SPLIT VIRUS, 0.5 ML DOSAGE, FOR INTRAMUSCULAR USE [facility] BRIEF EMOTIONAL/BEHAVIORA L ASSESSMENT (EG, DEPRESSION INVENTORY, ATTENTION-DEFICIT/H YPERACTIVITY DISORDER [ADHD] SCALE), WITH SCORING AND DOCUMENTATION, PER STANDARDIZED INSTRUMENT [facility] WAIVER SERVICES; NOT OTHERWISE SPECIFIED (NOS) DoD Immunization Administration By Injection, One Vaccine Immunization Administration By Injection, One Vaccine 29366 MANDEEP ROMERO DoD Influenza Split Virus Vaccine IM Preserv Free 0.5mL Dosage Quadrivalent Influenza Split Virus Vaccine IM Preserv Free 0.5mL Dosage Quadrivalent 03854 MANDEEP ROMERO Influenza Seasonal, injectable quadrivalent - preservative free; Series #: 1; .5 mL; IM; Left Arm; Mfg: Seqirus; Lot: [id number]; VIS given ([place]: 04/12/2015). DoD Immunization Administration By Injection, One Vaccine Immunization Administration By Injection, One Vaccine [id number] 014 ADRI STEVENS [facility] Influenza Split Virus Vaccine 0.5mL Dosage Intramuscular ADRI STEVENS Influenza Split Virus; Series #: 1; .5 mL; IM; Right Arm; Mfg: Progeniq.; Lot: [id number]; VIS given ([place]: 04/24/14). DoD Internet Med Svc Qual Nonphys Healthcare Prof Up To 7 Days Estab Patient Internet Med Svc Qual Nonphys Healthcare Prof Up To 7 Days Estab Patient [id number] CARL SPARKS Non-Physician Phone Call To Patient/Provider Brief (5-10min) Non-Physician Phone Call To Patient/Provider Brief (5-10min) [id number] DAWNA CABAN Non-Physician Phone Call To Patient/Provider Brief (5-10min) Non-Physician Phone Call To Patient/Provider Brief (5-10min) [phone] NEREYDA CONDE Threshold Audiogram (Pure Tone) Threshold Audiogram (Pure Tone) [phone] OLIMPIA BEAVER Screening Test Of Visual Acuity, Quantitative, Bilateral Screening Test Of Visual Acuity, Quantitative, Bilateral [id number] OLIMPIA BEAVER Ophthalmological Prior Patient Start Intermediate Level Care Ophthalmological Prior Patient Start Intermediate Level Care [phone] MELYL MADISON JR Threshold Audiogram (Pure Tone) Threshold Audiogram (Pure Tone) [phone] BEATRIS BOOGIE Physician Supervised Group Educational Services 012 BEATRIS BOOGIE Threshold Audiogram (Pure Tone) Threshold Audiogram (Pure Tone) [phone] BEATRIS BOOGIE Threshold Audiogram (Pure Tone) Threshold Audiogram (Pure Tone) [id number] BEATRIS BOOGIE Ophthalmological New Patient Start Intermediate Level Care Ophthalmological New Patient Start Intermediate Level Care [phone] HOSEA TORRES Threshold Audiogram (Pure Tone) Threshold Audiogram (Pure Tone) [id number] 010 BEATRIS BOOGIE Kasandra Tonometry Tonometry [phone] SAEED JUDD Determination Of Refractive State Determination Of Refractive State [phone] SAEED JUDD Spectacles Services Fitting Monofocal Except For Aphakia Spectacles Services Fitting Monofocal Except For Aphakia [phone] VY FINE Ophthalmological New Patient Start Comprehensive Care Ophthalmological New Patient Start Comprehensive Care [phone] VY FINE Determination Of Refractive State Determination Of Refractive State [phone] VY FINE Audiogram (Screening) Audiogram (Screening) [phone] KEENAN HOLDER Ophthalmological New Patient Start Intermediate Level Care Ophthalmological New Patient Start Intermediate Level Care [id number] BAN HUMPHREYS Spectacles Services Fitting Monofocal Except For Aphakia Spectacles Services Fitting Monofocal Except For Aphakia [id number] BAN HUMPHREYS Preventive Medicine Administration Of Health Risk Questionnaire Patient-Focused Preventive Medicine Administration Of Health Risk Questionnaire Patient-Focused [id number] MARLEY LEONARD AUDIT, PHQ, and PCL-C [facility] Waiver services; not otherwise specified (NOS) MARLEY LEONARD Preventive Medicine Administration Of Health Risk Questionnaire Patient-Focused Preventive Medicine Administration Of Health Risk Questionnaire Patient-Focused [id number] LIN HANSEN Brief communication technology-based service, e.g. virtual check-in, by a physician or other qualified health care profzeynep balbuena who can report evaluation and management services, provided to an established patient, not originating from a related E/M service provided within the previous 7 days nor leading to an E/M service or procedure within the next 24 hours or soonest available appointment; 5-10 minutes of medical discu LIN Escamilla Psychometric Emotional / Behavioral A e ment Psychometric Emotional / Behavioral Assessment [id number] LIN HANSEN Audit-C, PCL-C, PHQ8 [facility] Vaccine SARS-CoV-2 mRNA-LNP Rohan Protein Preservative Free 100mcg/0.5mL IM Vaccine SARS-CoV-2 mRNA-LNP Rohan Protein Preservative Free 100mcg/0.5mL IM 535[address] BARBEDITACICIREFUGIO Titi COVID-19 Moderna; Series #: 1; 0.5 mL; IM; Left Arm; Mfg: Moderna [employer] Lot: [id number]; VIS given ([place]: 08/06/2020). [facility] Vaccine SARS-CoV-2 mRNA-LNP Rohan Protein Preservative Free 100mcg/0.5mL IM First Dose Vaccine SARS-CoV-2 mRNA-LNP Rohan Protein Preservative Free 100mcg/0.5mL IM First Dose [id number] REFUGIO OSBORNE [facility] Vaccine SARS-CoV-2 mRNA-LNP Rohan Protein Preservative Free 100mcg/0.5mL IM Vaccine SARS-CoV-2 mRNA-LNP Rohan Protein Preservative Free 100mcg/0.5mL IM 409[address] SKYLAR LANDAVERDE COVID-19 Moderna; Series #: 2; 0.5 mL; IM; Left Arm; Mfg: Moderna [employer].; Lot: [id number]; VIS given ([place]: 08/06/2020). [facility] Vaccine SARS-CoV-2 mRNA-LNP Rohan Protein Preservative Free 100mcg/0.5mL IM Second Dose Vaccine SARS-CoV-2 mRNA-LNP Rohan Protein Preservative Free 100mcg/0.5mL IM Second Dose [id number] SKYLAR LANDAVERDE Social History Combined list of available smoking, tobacco, and other social history from Department of Defense and [facility] Affairs facilities. Social History Type Response Date Comment [facility] e This section is an empty social history section. DoD
== END 2024-10-02 17:39 ==
PROVIDERS: PCP Internal Medicine; Visit Provider Internal Medicine
DX: K20.0 Eosinophilic esophagitis (principal)
CPT/HCPCS: 99214; G2211

== ENCOUNTER → 2024-10-02 14:58 | Outpatient (BNVA) | payer OTHER, SELFPAY | PROVIDERS: PCP Internal Medicine; Visit Provider Internal Medicine | DX: K20.0 Eosinophilic esophagitis (principal) | CPT/HCPCS: 99212 ==

== ENCOUNTER 2024-11-09 06:26 | Day surgery (SDC) | payer OTHER, SELFPAY ==
[2024-11-07 12:01] VITALS: BMI 34.7
--- NOTE | 2024-11-08 08:33 | HO.ANESPROP2 ---
Documented by User: Shandra Flynn NP 11/08/24 08:33 HPI - Anesthesia Eval Consult details Narrative: 44yo M for Upper Endoscopy with Dilitation PMFSH Active Problems Active Problems: All Active Problems Obesity (BMI 30.0-34.9) (Acute) Status post laparoscopic cholecystectomy (Acute) Benign esophageal stricture (Acute) Dysphagia (Acute) Daytime sleepiness (Acute) Loud snoring (Acute) Hypercholesteremia (Acute) Eosinophilic esophagitis (Acute) Past Medical History Medical History Obesity (BMI 30.0-34.9) Eosinophilic esophagitis Elevated cholesterol Malaria Family History Family History Father Heart attack High blood pressure Mother S/P triple vessel bypass Diabetes Brother Eosinophilic esophagitis Family history of problems with anesthesia: No Surgical History Surgical History Hx laparoscopic cholecystectomy (02/03/24) History of esophagogastroduodenoscopy (EGD) H/O colonoscopy Hx of tonsillectomy H/O endoscopy History of Problems with Anesthesia: No Social History Social History Household Members: Spouse Housing: House Are you a primary point of care technician to a significant other at home: No Do you presently have visiting nurse or other home services: No Alcohol intake: current Alcohol intake frequency: a few times a week Alcohol type: beer Patient Tobacco Use Status: Never used Tobacco e-Cigarette/Vaping Use: Never Used Second Hand Smoke Exposure: No Have you been hit, kicked, punched, or otherwise hurt by someone within the past year? If so, by whom?: No Are you DNR?: No Advance Directives: No Advance Directives Information Provided: Yes Nutrition Risks: No Nutritional Risk service: Yes (ACTIVE DUTY) Current occupational status: employed Current occupation: [employer] Current occupational exposures/hazards: No Cognitive needs: No Hearing needs: No Vision needs: No Meds Allergies Allergy/AdvReac Type Severity Reaction Status Date / Time penicillin G Allergy Mild Rash Verified 10/02/24 15:07 Exam Height,Weight and Vital Signs: Height 6 ft Weight 116.12 kg Assessment and Plan Assessment Anesthesia Assessment: Chart Reviewed Final Anesthetic Review Family History of Problems with Anesthesia: No History of Problems with Anesthesia: No Documented by User: Iraida Vega MD 11/09/24 07:30 PMFSH Active Problems Active Problems: fAll Active Problems Obesity (BMI 30.0-34.9) (Acute) Status post laparoscopic cholecystectomy (Acute) Benign esophageal stricture (Acute) Dysphagia (Acute) Daytime sleepiness (Acute) Loud snoring (Acute) Hypercholesteremia (Acute) Eosinophilic esophagitis (Acute) Past Medical History Medical History Obesity (BMI 30.0-34.9) Eosinophilic esophagitis Elevated cholesterol Malaria Family History Family History Father Heart attack High blood pressure Mother S/P triple vessel bypass Diabetes Brother Eosinophilic esophagitis Surgical History Surgical History Hx laparoscopic cholecystectomy (02/03/24) History of esophagogastroduodenoscopy (EGD) H/O colonoscopy Hx of tonsillectomy H/O endoscopy Social History Social History Household Members: Spouse Housing: House Are you a primary point of care technician to a significant other at home: No Do you presently have visiting nurse or other home services: No Alcohol intake: current Alcohol intake frequency: a few times a week Alcohol type: beer Patient Tobacco Use Status: Never used Tobacco e-Cigarette/Vaping Use: Never Used Second Hand Smoke Exposure: No Have you been hit, kicked, punched, or otherwise hurt by someone within the past year? If so, by whom?: No Are you DNR?: No Advance Directives: No Advance Directives Information Provided: Yes Nutrition Risks: No Nutritional Risk service: Yes (ACTIVE DUTY) Current occupational status: employed Current occupation: [employer] Current occupational exposures/hazards: No Cognitive needs: No Hearing needs: No Vision needs: No Meds Allergies Allergy/AdvReac Type Severity Reaction Status Date / Time penicillin G Allergy Mild Rash Verified 10/02/24 15:07 Exam Airway Mallampati Class: II TM Dist: >3cm Neck ROM: Full Loose/Missing/Broken Teeth: No Heart: RRR Lungs: CTA Assessment and Plan Assessment Anesthesia Assessment: Anesthesia Plan Discussed Final Anesthetic Review NPO: Yes ASA Class: II Final Preanesthetic Review: Meds/Allgs Chart Reviewed, Consent Obtained/Reviewed and Anes Risks/Benef Reviewed Patient Risk: Low Procedure Risk: Intermediate Anesthetic Plan Anesthetic Plan: MAC: Disposition: Standard PACU
--- NOTE | 2024-11-09 06:15 | P.HPSUR_ITS ---
Pre-Procedural Eval Section A - 24 Hr Update-Section A only Date of Service: 11/09/24 Section B - Complete if H&P > 30 days Chief Complaint: Eosinophilic esophagitis Details of Present Illness: Eosinophilic esophagitis Elevated cholesterol Malaria Surgical History History of esophagogastroduodenoscopy (EGD) H/O colonoscopy Hx of tonsillectomy H/O endoscopy Allergies: Allergies Allergy/AdvReac Type Severity Reaction Status Date / Time penicillin G Allergy Mild Rash Verified 10/02/24 15:07 Review of Systems Review of Systems Comment: Ten point ROS negative Exam Exam Comment: Gen appear: No acute distress HEENT: no icterus Chest: No overt resp distress Abd: soft, nontender, nondistended Psych: Stable affect, answering questions appropriately Neuro: A/Ox3 noted to move all extremities spontaneously Ext: no peripheral edema Plan Diagnosis/Plan: Unchanged I have reviewed the history and physical and performed a pertinent physical examination on my patient. No changes have occurred unless specified. Time Spent With Patient Time: Total time managing care of this patient today ____ minutes.
[2024-11-09 06:42] VITALS: BP 144/97; PULSE 65; RESP 19; TEMP 36.9; O2SAT 96; BMI 35.0
[2024-11-09] MEDS: Lactated Ringers 1,000 ML 100 ML IVCONT (07:02)
--- NOTE | 2024-11-09 07:49 | P.OP_ITS ---
Operative Note Operative Note Date of Service: 11/09/24 Narrative: Procedure: Esophagogastroduodenoscopy Endoscopist: Lorraine Alamo MD Indication: EoE Anesthesia Provider: Gladis Vega MD Anesthesia Type: MAC Instrument: Olympus [id number]-H190 ?? EGD Procedure:?? The procedure, indications, preparation and potential complications were reviewed with the patient, who indicated understanding and gave written informed consent to proceed. A physical exam was performed. The endoscope was introduced through the mouth, and advanced to the second part of duodenum. The mucosa was carefully examined on slow withdrawal of the endoscope. The patient tolerated the procedure well. There were no immediate complications.? ? EGD Findings:? * Esophagus:? Normal mucosa was noted in proximal esophagus. Mild scarring from previous dilation noted at the GE junction. The Z line was at 40 cm and irregular up to 38 cm. GE junction biopsies were taken to rule out wilson's esophagus. There was a small hiatal hernia with diaphragmatic pinch at 43 cm. Middle and lower esophagus forceps biopsies were obtained to monitor e osinophil count/response to current therapy. * Stomach:? Normal gastric mucosa. Retroflexion was performed in the cardia that showed Hill grade 2 hiatal hernia. * Duodenum:? Normal mucosa was noted in the whole of the examined duodenum. Additional intervention: A wire guided [id number] balloon dilator was advanced to the lower esophagus and then incrementally insufflated from 18 to 20 mm. NO tear was noted. ? EGD Impressions:? * Irregular Z line (biopsy) * Grade A esophagitis (biopsy) * Hiatal hernia * Normal stomach (biopsy) * Normal duodenum (biopsy) ?? Recommendations:?? * Follow biopsy results. Our office will call or send a letter with results within 7-10 days. * Continue Dupixent 300 qweekly * Cont nexium 20 BID * Repeat EGD PRN for return of dysphagia Above has been reviewed with the patient.
[2024-11-09 08:09] VITALS: BP 104/74; PULSE 101; RESP 18; TEMP 36.4; O2SAT 96
[2024-11-09 08:28] VITALS: BP 118/78; PULSE 79; RESP 20; TEMP 36.3; O2SAT 96
== END 2024-11-09 08:46 | disposition home or self-care (01) ==
PROVIDERS: PCP Internal Medicine; Visit Provider Internal Medicine
PROC: (CPT 43248; principal; 2024-11-09 07:30)
DX: K20.0 Eosinophilic esophagitis (principal); K20.80 Other esophagitis without bleeding; K22.9 Disease of esophagus, unspecified; K44.9 Diaphragmatic hernia without obstruction or gangrene; R13.10 Dysphagia, unspecified; E78.00 Pure hypercholesterolemia, unspecified; Z79.899 Other long term (current) drug therapy
CPT/HCPCS: 43248; 43239; 88305; 88313; 88342; C1726; J2003; J2704

== ENCOUNTER → 2024-11-09 06:26 | Outpatient (BNV) | payer OTHER, SELFPAY | PROVIDERS: PCP Internal Medicine; Visit Provider Internal Medicine | DX: K20.0 Eosinophilic esophagitis (principal); R13.10 Dysphagia, unspecified | CPT/HCPCS: 43239; 43249 ==